=== PATIENT | female | born 1970 | race African-American/Black ===

== ENCOUNTER 2017-09-15 08:11 | Emergency (ER) | payer OTHER, SELFPAY ==
--- NOTE | 2017-09-15 09:11 | RAD ---
PORTABLE CHEST: HISTORY: Cough. COMPARISON: 03/01/17 study. FINDINGS: Heart size and mediastinum are within normal limits. The lungs are clear of infiltrates. Surgical c lips are noted in the left axilla. IMPRESSION: No active intrathoracic disease. POS: [facility]
== END 2017-09-15 09:55 | disposition home or self-care (01) ==
LOC: ERS 08:11
DX: R05 Cough (principal); E11.9 Type 2 diabetes mellitus without complications; I10 Essential (primary) hypertension; Z85.3 Personal history of malignant neoplasm of breast; I48.91 Unspecified atrial fibrillation; Z87.891 Personal history of nicotine dependence
CPT/HCPCS: 71010; 93005; 93010

== ENCOUNTER 2017-12-07 18:33 | Inpatient (IN) | payer OTHER ==
[2017-12-07 19:17] LABS: Hemoglobin 13.3 g/dL (12.0-16.0); Mean Corpuscular HGB CONC 33.3 g/dL (32.0-36.0); Mean Corpuscular Hemoglobin 24.9 pg (27.0-31.0); Mean Corpuscular Volume 74.6 fl (81.0-99.0); Mean Platelet Volume 8.8 fL (7.4-10.4); Platelet Count 278 thou/uL (130-400); RBC Distribution Width 14.4 % (11.5-14.5); Red Blood Cell (RBC) Count 5.36 mill/uL (4.20-5.40); White Blood Cell (WBC) Count 7.9 thou/uL (4.8-10.8)
[2017-12-07 19:18] LABS: #Basophils 0.1 thou/uL (0.0-0.2); #Eosinphils 0.1 thou/uL (0.0-0.7); #Lymphocytes 3.6 thou/uL (1.20-3.40); #Monocytes 0.5 thou/uL (0.11-0.59); #Neutrophils 3.6 thou/uL (1.40-6.50); %Basophils 0.6 % (0.0-1.0); %Eosinophils 0.9 % (0.0-10.0); %Lymphocytes 45.4 % (21.0-51.0); %Monocytes 6.9 % (0.0-10.0); %Neutrophils 46.2 % (42.0-75.0)
[2017-12-07 19:32] LABS: Hypochromia SLIGHT = 6-15 cells (100X) (0-5/hpf); MDiff Complete? YES; Microcytosis SLIGHT = 6-15 cells (100X) (0-5/hpf); Ovalocytes SLIGHT = 2-5 cells (100X) (0-1/hpf); PLT Morphology Comment Appears Adequate; Target Cells SLIGHT = 2-5 cells (100X) (0-1/hpf)
--- NOTE | 2017-12-07 19:46 | RAD ---
FRONTAL RADIOGRAPH CHEST 12/07/17 COMPARISON: 09/15/17 HISTORY: Left arm numbness with chest pain and shortness of breath. FINDINGS: There are postoperative clips in the left axillary region. There is no pneumothorax, pleural fluid, f ocal consolidation, or alveolar edema. IMPRESSION: No acute findings. POS: [facility]
[2017-12-07 19:48] LABS: ALT (SGPT) 9 U/L (8-55); AST (SGOT) 11 U/L (5-34); Albumin 3.4 g/dL (3.5-5.0); Alkaline Phosphatase 69 U/L (40-150); Anion Gap 14 mmol/L (10-20); BUN (Urea Nitrogen) 34 mg/dL (7.0-18.7); Bilirubin, Total 0.2 mg/dL (0.2-1.2); CK (CPK) 93 U/L (29-168); Calc. Creatinine Clearance 0 mL/min (70-130); Calcium 9.6 mg/dL (7.8-10.44); Carbon Dioxide 24 mmol/L (22-29); Chloride 99 mmol/L (98-107); Estimated GFR-MDRD 38; Globulin 3.7 g/dL (2.4-3.5); Glucose 519 mg/dL (70-105); Lipase 107 U/L (8-78); Potassium 3.5 mmol/L (3.5-5.1); Protein, Total 7.1 g/dL (6.0-8.3); Sodium 133 mmol/L (136-145)
[2017-12-07] MEDS ORDERED: Insulin Regular 300 UNITS/3 ML VIAL ONE (21:20)
[2017-12-07] MEDS ORDERED: Sodium Chloride 0.9% 1,000 ML IV SCH (22:09)
[2017-12-07 22:40] VITALS: BMI 34.3
[2017-12-07 22:49] LABS: Troponin I 0.042 ng/mL (< 0.028)
[2017-12-08] MEDS ORDERED: Carvedilol 6.25 MG TAB PO SCH ×2 (01:00→09:00)
[2017-12-08] MEDS ORDERED: Dextrose 50% Abboject 50 ML SYRINGE SLOW IVP PRN (01:02)
[2017-12-08] MEDS ORDERED: Ondansetron HCl/PF 4 MG/2 ML Vial IVP PRN (01:02)
[2017-12-08] MEDS ORDERED: Dextrose 5% in Water 1,000 ML IV PRN (01:02)
[2017-12-08] MEDS ORDERED: Mag-Al 1200 mg/1200 mg/30 ML UDCUP PO PRN (01:02)
[2017-12-08] MEDS ORDERED: hydrALAZINE 20 MG/ML VIAL SLOW IVP PRN (01:02)
[2017-12-08] MEDS ORDERED: Acetaminophen 325 MG TAB PO PRN (01:02)
[2017-12-08] MEDS ORDERED: HumaLOG 300 UNITS/3 ML VIAL SC PRN (01:02)
[2017-12-08] MEDS ORDERED: Ondansetron ODT 4 MG TAB PO PRN (01:02)
[2017-12-08] MEDS ORDERED: Milk Of Magnesia 30 ML UDCUP PO PRN (01:02)
[2017-12-08] MEDS ORDERED: Enoxaparin Sodium 100 MG/ML SYRINGE SC SCH (01:15)
[2017-12-08] MEDS: ALPRAZolam 0.25 MG TAB PO PRN ×2 (01:25→17:15)
[2017-12-08 01:37] LABS: Troponin I 0.037 ng/mL (< 0.028)
--- NOTE | 2017-12-08 01:59 | HP ---
PRIMARY CARE PHYSICIAN: Dr. Chen. CHIEF COMPLAINT: Feeling tired and aching and heart racing. HISTORY OF PRESENT ILLNESS: Ms. Newby is a very pleasant 47-year-old female who has a history of hypertension, diabetes mellitus, and atrial fibrillation, which was diagnosed about 2 years ago. She also has a history of breast cancer. She was in her usual state of health until about 2 days ago, s he started noticing that her heart was racing. She thought it was due to stress and anxiety as she s ays she has a lot of stress going on at home and at work and so she went to work as she works actuall y two and half job. 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 Yesterday, she felt the same way and felt a little bit of aching in her chest and then she went home and did not quite feel right. She felt dizzy and a bit lightheaded and said she better go on to the hospital to see what was wrong. In the ER, she was found to be in atrial fibrillation wit h rapid ventricular response and her heart rate actually improved, but she continues to be in atrial fibrillation and she is being placed in observation for further evaluation and her heart rate improve d after she was given 10 mg of Cardizem, but she did not require a Cardizem drip. The patient says t hat she had been diagnosed with atrial fibrillation about 2 years ago. She was seen at [facility]. There she was placed on sotalol and she believes Xarelto and her heart rate state good after being placed on these medications. She was on the medicines for about 3 months, but then was not able to get then refilled as she did not have insurance and could not afford to see the card iologist in which she says she had to get $300 of her own. She has not been on the medications since then and had been doing okay until just recently. She also ran out of insulin a couple of days ago, which she uses for the treatment of diabetes. She says she was diabetic at the time of her diagnosi s of atrial fibrillation. She also believes she had an echo done at the [facility] at that time. REVIEW OF SYSTEMS: Constitutional: There has been no fever, chills, no night sweats, no weight loss . HEENT: No headaches, but she has had some dizziness, no visual changes, no sore throat, rhinorrhe a, neck pain, no adenopathy. Pulmonary: No hemoptysis, no cough, no wheezing. Cardiovascular: As the history of present illness. Gastrointestinal: No abdominal pain, no nausea, no vomiting, no ellen nge in bowels. Genitourinary: No urinary frequency, hematuria, no hesitancy. Neurologic: No focal weakness, numbness, no seizures. Psychiatric: No symptoms of anxiety or depression. PAST MEDICAL HISTORY: Significant for hypertension, diabetes mellitus type 2, atrial fibrillation, a nd breast cancer. PAST SURGICAL HISTORY: She has had a hysterectomy and lumpectomy. ALLERGIES: No known drug allergies. SOCIAL HISTORY: She occasionally smokes, occasional alcohol use. She is single, has 2 children. 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 FAMILY HISTORY: Significant for diabetes mellitus in her mother and heart disease in her father. MEDICATIONS: She is taking amlodipine 10 mg daily, lisinopril 20 mg a day, carvedilol 12.5 mg twice a day, hydralazine 50 mg 3 times a day, triamterene/hydrochlorothiazide 37.5 mg daily, glipizide 10 m g daily, Levemir insulin 40 units twice a day, she had been on sotalol 40 mg twice a day and a blood thinner, which she believes was Xarelto. PHYSICAL EXAMINATION: GENERAL: She is alert and oriented. She appears to be in no acute distress. VITAL SIGNS: In the ER, the blood pressure was 135/76, heart rate 95, respiratory rate of 24, and te mperature is 98.2. HEENT: Her pupils are equal, round, and reactive. Extraocular muscles are intact. Sclerae are anic teric. Throat no erythema, no exudates. NECK: No adenopathy, no bruits. LUNGS: Clear to auscultation. There is no wheezing, no rales. CARDIOVASCULAR: She has a normal S1, S2. I did not appreciate an S3 or S4. No murmurs, clicks, or rubs. ABDOMEN: Obese, it is soft, nontender, nondistended. Positive for bowel sounds. No rebound, no gua rding. EXTREMITIES: There is no edema. NEUROLOGICALLY: The exam is nonfocal. SIGNIFICANT LABORATORY AND X-RAY FINDINGS: On her EKG, it was atrial fibrillation. Her heart rate w as in the 90s. Chest x-ray essentially looks unremarkable. Heart size is within the normal limits a nd there is no infiltrates. Her sodium was 133, potassium 3.5, chloride is 99, CO2 is 24, BUN of 34, creatinine 1.75, glucose was 519. Troponin is 0.030. White blood cell count 7.9, hemoglobin 13.3, hematocrit is 40, platelet count is 278. ASSESSMENT AND PLAN: This is a pleasant 47-year-old female that presents to the emergency room in at [facility] fibrillation with rapid ventricular response. I suspect her symptoms that she experienced was t he results of the atrial fibrillation. She also appears to have some degree of acute renal failure p ossibly acute on chronic kidney disease approximately 9 months ago her renal function was normal. PLAN: 1. The patient will be placed in observation. We will need to start her on anticoagulation. We ellen l give her a full dose of Lovenox tonight and then likely can start her on Xarelto on tomorrow, is ty pically dosed in the evening. She likely needs to be restarted on sotalol. However, we will consult Cardiology to see if this would be the ideal situation and we will also need to get their opinion wi th regards to the dosing of the sotalol or other medication recommended by Cardiology. 2. With regards to diabetes mellitus, we will start her on her usual dose of Levemir and place her o n a sliding scale as well. 3. Acute on chronic kidney disease. She has been given a bolus of normal saline in the ER. We will give her another liter of fluids and recheck her creatinine later on this morning. The patient has been counseled on the dangers of noncompliance including severe stroke and other sequ elae and she voices understanding. She currently now has insurance and states that she will be able to follow up as well as get her medications.
[2017-12-08] MEDS ORDERED: Diltiazem HCl 125 MG, Admixture Fee 1 EACH in Sodium Chloride 0.9% 100 ML IVPB SCH (02:45)
--- NOTE | 2017-12-08 03:38 | PDOC.EVN ---
Event Note - Event Note Event Note: Patient had to be placed on a Cardizem drip, will therefore change her status to in-patient. Will also request her Echo results from the [facility]
[2017-12-08 04:54] LABS: #Basophils 0.1 thou/uL (0.0-0.2); #Eosinphils 0.1 thou/uL (0.0-0.7); #Lymphocytes 3.9 thou/uL (1.20-3.40); #Monocytes 0.6 thou/uL (0.11-0.59); #Neutrophils 3.6 thou/uL (1.40-6.50); %Basophils 1.2 % (0.0-1.0); %Lymphocytes 47.4 % (21.0-51.0); %Monocytes 6.8 % (0.0-10.0); %Neutrophils 43.7 % (42.0-75.0); Hemoglobin 12.7 g/dL (12.0-16.0); Mean Corpuscular HGB CONC 32.9 g/dL (32.0-36.0); Mean Corpuscular Hemoglobin 24.9 pg (27.0-31.0); Mean Corpuscular Volume 75.7 fl (81.0-99.0); Mean Platelet Volume 8.9 fL (7.4-10.4); Platelet Count 255 thou/uL (130-400); RBC Distribution Width 14.6 % (11.5-14.5); Red Blood Cell (RBC) Count 5.09 mill/uL (4.20-5.40); White Blood Cell (WBC) Count 8.2 thou/uL (4.8-10.8)
[2017-12-08 05:12] LABS: Anion Gap 13 mmol/L (10-20); BUN (Urea Nitrogen) 33 mg/dL (7.0-18.7); Calc. Creatinine Clearance 83 mL/min (70-130); Carbon Dioxide 24 mmol/L (22-29); Chloride 103 mmol/L (98-107); Estimated GFR-MDRD 52; Glucose 330 mg/dL (70-105); Potassium 3.2 mmol/L (3.5-5.1); Sodium 137 mmol/L (136-145)
[2017-12-08 05:26] LABS: Free T4 (Free Thyroxine) 1.05 ng/dL (0.70-1.48); Thyroid Stimulating Hormone 1.8684 uIU/mL (0.35-4.94)
[2017-12-08] MEDS: HumaLOG 300 UNITS/3 ML VIAL SC PRN ×4 (05:54→17:23)
[2017-12-08] MEDS ORDERED: glipiZIDE 10 MG TAB PO SCH (07:30)
[2017-12-08] MEDS ORDERED: FLU VACC QS2017-18 36 mo. & older 0.5 ML SYRINGE IM ONE (09:00)
[2017-12-08] MEDS ORDERED: Lisinopril 20 MG TAB PO SCH (09:00)
[2017-12-08] MEDS ORDERED: Aspirin 81 mg Enteric Coated Tablet PO SCH (09:00)
[2017-12-08] MEDS ORDERED: Insulin Detemir 100 UNITS/ML 40 UNITS in Pre-Filled Syringe 1 EACH SC SCH (09:00)
[2017-12-08] MEDS ORDERED: Aspirin 325 mg Enteric Coated Tablet PO SCH (09:00)
[2017-12-08] MEDS ORDERED: Amlodipine 10 MG TAB PO SCH (09:00)
[2017-12-08] MEDS ORDERED: Famotidine 20 MG TAB PO SCH (09:00)
[2017-12-08] MEDS: hydrALAZINE 25 MG TAB PO SCH ×2 (09:14→14:42)
--- NOTE | 2017-12-08 15:53 | ADD-CON ---
ADDENDUM Please refer to the notes also dictated by Dr. Penn. He was also seeing the patient with me. We h ave discussed the patient. We reviewed the patient together. DATE OF CONSULTATION: 12/08/2017 DATE OF ADMISSION: 12/07/2017 INDICATION FOR CONSULTATION: A 47-year-old female with intermittent atrial fibrillation. HISTORY OF PRESENT ILLNESS: This is a 47-year-old female who had a history of atrial fibrillation, s tarting a couple of years ago, has been placed on Xarelto and sotalol, was unable to afford the medic ation. She stopped taking it, but the atrial fibrillation was intermittent. She has been under incr eased stress recently and had decreased fatigue and has been drinking more caffeine unusual and did n otice couple of days ago that she felt strange and noticed some palpitations and shortness of breath and presented to the emergency and was found to be in atrial fibrillation with rapid ventricular resp onse. She was given IV diltiazem and then converted back to normal sinus rhythm. At home, she has a lready been on Coreg, but was not taking any anticoagulation except for an aspirin a day. In 2012, s he had an echocardiogram which showed left atrial size of 4.0 cm and ejection fraction 65% with left ventricular hypertrophy, otherwise she has been doing quite well as far as her heart is concerned. PAST MEDICAL HISTORY: She has had a past medical history of left breast nodule removed and also had a lymph node dissection as well as radiation and chemotherapy. She has history of hypertension, diab etes, cholecystectomy, and hysterectomy. SOCIAL HISTORY: She has some history of tobacco abuse in the past and she also has history of alcoho l use on a daily basis. FAMILY HISTORY: Noncontributory at this time, but her father did have some heart disease. REVIEW OF SYSTEMS: Twelve point review of systems unremarkable except what was noted above and pleas e refer to the note dictated by Dr. Penn. ALLERGIES: None. MEDICATIONS: Prior to admission include Norvasc, lisinopril, Coreg, and hydralazine. At this time, we will continue these medications and also start diltiazem. She has also been placed on insulin, I believe. PHYSICAL EXAMINATION: I would agree with Dr. Penn that she has a regular rate and rhythm at this t maicol. Exam is otherwise unremarkable, had some left arm edema. She has positive pulses and no lower extremity edema. Neurologically, she is fully intact and there were no gross murmurs, heaves, thrill s, bruits or rubs. EKG at this time shows a sinus rhythm, previous EKG shows atrial fibrillation, bu t no acute changes that would indicate ischemia. IMPRESSION: 1. Atrial fibrillation with rapid ventricular response, which easily converted back to normal sinus rhythm with the use of diltiazem. At this time, I would continue her on a low dose of diltiazem oral ly as well as the Coreg since she is having difficulty involving her medications. This may have impr jaime somewhat now. She is on Medicaid, but since she has only had intermittent episodes of atrial fi brillation. We will try the diltiazem, should she have more episodes and she will need to be placed on a more potent antiarrhythmic medications. We could resume sotalol or some other medications in or esthela to maintain sinus rhythm. We will also obtain an echocardiogram on this admission prior to disch arge to determine the left atrial size and also her left ventricular systolic function. At some poin t in time, it would be advantageous to undergo some type of stress testing, which can be done as an o utpatient due to her history of diabetes, hypertension, and atrial fibrillation. 2. History of diabetes. This is dealt with by the primary care service. 3. History of hypertension. This is under good control at this time. This will be dealt with also by the primary care service. I will need to be careful with her blood pressures if we restart the di ltiazem, I will start her on 180 mg p.o. daily. Thank you very much for asking us to see Mrs. Venegas ll. We will also need to consider starting her on oral anticoagulation if she has further episodes o f atrial fibrillation. Her CHADSVASc score is approximately 3.
[2017-12-08 15:54] VITALS: BP 178/84; TEMP 97.9
--- NOTE | 2017-12-08 16:23 | CON-2 ---
DATE OF CONSULTATION: 12/08/2017 CARDIOLOGY CONSULTATION REASON FOR CONSULTATION: Atrial fibrillation with rapid ventricular response. RESIDENT PHYSICIAN: Lee Penn M.D. ATTENDING PHYSICIAN: Maia Bell M.D. REFERRING PHYSICIAN: Bernardo Escobedo M.D. CHIEF COMPLAINT: Shortness of breath. HISTORY OF PRESENT ILLNESS: Ms. Newby is a 47-year-old -[place] female with past medical history of hypertension, diabetes, paroxysmal atrial fibrillation and breast cancer status post lumpectomy. She presented with a 3- day history of shortness of breath and an "unusual feeling around her chest." She denied chest pain, pressure, or palpitations. She has been off of her sotalol and Xarelto for 2 to 3 months because her primary care physician would not refill and she was unable to afford over the counter. She has also had insurance issues during this time. She states she has been taking the remainder of her medications, which are listed below. In the ER, she was found to be in AFib with RVR, which improved with diltiazem 10 mg IV. She was also found to be hyperglycemic with glucose of 519, which has come down with insulin since. Per the history and physical, the patient states she has been out of her insulin for a couple of days. Last echo was performed, which was done at the [facility] in 2012, which showed left atrial dilation and was otherwise unremarkable. The patient also reports being under a lot of stress. She states she works 2 full-time jobs and a part-time job. 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 She reports drinking at least three 32 ounce Diet Cokes every day to help stay awake and reports increased psychosocial stress. PAST MEDICAL HISTORY: 1. Hypertension. 2. Insulin-dependent diabetes mellitus type 2. 3. Paroxysmal atrial fibrillation. 4. Breast cancer. PAST SURGICAL HISTORY: 1. Hysterectomy. 2. Left lumpectomy. ALLERGIES: No known drug allergies. SOCIAL HISTORY: Denies tobacco or illicit drug use. She uses alcohol occasionally, but has never had excessive alcohol use or binge drank. FAMILY HISTORY: Positive for hypertension and diabetes in her mother. She denied history of myocardial infarction in her family. CURRENT MEDICATIONS: 1. Amlodipine 10 mg daily. 2. Lisinopril 20 mg daily. 3. Coreg 12.5 mg b.i.d. 4. Hydralazine 50 mg t.i.d. 5. Triamterene/hydrochlorothiazide 37.5/25 mg daily. 6. Levemir 40 units subcutaneously b.i.d. 7. Glipizide 10 mg daily. 8. Aspirin 81 mg daily. The patient is supposed to be on sotalol 40 mg b.i.d. and Xarelto, but has been off these medications for at least 2 months. REVIEW OF SYSTEMS: General: Denies fevers or chills. ENT: Reported some dizziness and the onset of her other symptoms, but denies sore throat, runny nose. Cardiovascular: Denies chest pain. Reports heart fluttering for the past 2-3 days. Pulmonary: Reports shortness of breath. Denies dyspnea on exertion. Gastrointestinal: Denies GI bleeding or abdominal pain. Extremities : Reports chronic left arm swelling, but denies lower extremity edema. Genitourinary: Denies dysuria, polyuria, or discharge. PHYSICAL EXAMINATION: VITAL SIGNS: Temperature 98.1, pulse 74 and normal sinus rhythm, respiratory rate 16, pulse ox 90% on room air, blood pressure 138/67. GENERAL: No acute distress, obese. CARDIOVASCULAR: Normal rate, regular rhythm without murmurs, rubs or gallops. PULMONARY: Clear to auscultation bilaterally. Normal effort. EXTREMITIES: Mild to moderate nonpitting edema in left upper extremity. No edema in the lower extremity as well as right upper extremity. SKIN: Intact. No lesions. LABORATORY DATA: 1. CMP: Sodium 137, potassium 3.2, chloride 103, bicarbonate 24, BUN 33, creatinine 1.33, estimated GFR 52, glucose 330, and calcium 9.0. 2. CBC: White count 8.2, hemoglobin 12.3, hematocrit 38.5, platelets 255, MCV 75.7. 3. Cardiac markers: CK-MB on admission is 3.0 and BNP 752.9. Troponins at the time of admission 0.030, trended up to 0.042, and back down to 0.037. TSH is 1.8684. IMAGING: Chest x-ray, no acute findings. ASSESSMENT: Ms. Newby is a 47-year-old -[place] female with history of atrial fibrillation, who presented to the ER in atrial fibrillation with rapid ventricular response. She has been out of her medications for 2 to 3 months and reports excessive caffeine use. Denies alcohol or illicit drug use. PLAN: 1. Atrial fibrillation with rapid ventricular response. The patient is currently in normal sinus rhythm after diltiazem bolus in the ER and being placed on a diltiazem drip for approximately 8 hours. Since she reports difficulty affording her medication and she responded well to the diltiazem, we will start oral diltiazem 180 mg daily. The patient needs repeat transthoracic echocardiogram as it has been almost 5 years since she last received one. If the patient receives echo today and remains in normal sinus rhythm or is rate controlled, she would be stable and ready for discharge today. Her TIKI-VASc2 score is 3 since her atrial fibrillation appears to be well controlled and she appears to be in sinus rhythm and knows when her episodes of atrial fibrillation occur, we would recommend aspirin at this time. If she continues to have recurrent episodes of atrial fibrillation, we discuss starting the patient on long-term anticoagulation at that time. Since the patient is able to tell when she goes into atrial fibrillation, I would recommend her checking her pulse and educating on own findings of irregular pulse when in atrial fibrillation and advised to follow up if and when that happens again. 2. Hypertension. I resume home medications and start diltiazem. We will need outpatient followup to monitor for blood pressure and adjust medications accordingly. May need to remove or decrease other medications if her blood pressure does not tolerate the diltiazem. 3. Insulin-dependent diabetes mellitus type 2. No A1c is available. We will defer to primary team for management. We would recommend high intensity statin therapy since she is diabetic and high risk for cardiovascular disease. 4. History of breast cancer, status post lumpectomy. The patient reported chronic swelling in her left upper extremity since surgery. Continue with outpatient followup. History, physical exam, and assessment and plan were discussed with Dr. Bell, who is in agreement with this assessment and plan unless otherwise stated in her attestation. CYRIL
--- NOTE | 2017-12-08 22:28 | DIS ---
DATE OF ADMISSION: 12/07/2017 DATE OF DISCHARGE: 12/08/2017 DISCHARGE DIAGNOSES: 1. Atrial fibrillation with rapid ventricular response, converting to sinus rhythm. 2. Acute kidney injury on chronic kidney disease stage 2. 3. Hypertension, labile. 4. Diabetes mellitus type 2, insulin requiring. 5. Hypokalemia, mild. 6. Elevated troponin secondary to demand ischemia and #1. CONSULTATIONS: Dr. Bell with Cardiology Service. PERTINENT LABORATORY AND X-RAY FINDINGS: Potassium ranged between 3.2-3.5, creatinine ranged between 1.33-1.67 with estimated GFR ranging between 38-52. Troponin I ranged between 0.030 to 0.042. BNP 753, TSH 1.87. Free T4 1.05. CBC within normal limits. Portable chest x-ray dated 12/07/2017 showe d no acute cardiopulmonary process. HOSPITAL COURSE: Patient was admitted to the telemetry unit after initially presenting with fatigue and palpitations. The patient underwent general evaluation with EKG evaluation showing evidence of a trial fibrillation with rapid ventricular response, initially treated with a bolus dose of Cardizem a t 10 mg. The patient apparently did not require a Cardizem infusion and converted back to sinus mech anism. Patient was evaluated by the Cardiology service with recommendations for rate control and the addition of diltiazem 180 mg daily. The patient was also instructed to continue carvedilol 12.5 mg b.i.d. No current recommendations for anticoagulation; however, if patient does continue to have rec urrent episodes of atrial fibrillation, anticoagulation may be considered at that time. Overall, the patient remained clinically stable throughout the hospital course with current telemetry monitoring showing sinus mechanism with heart rates in the 70s. The patient is ready for discharge on 8. DISCHARGE MEDICATIONS: 1. Xanax 0.25 mg p.o. b.i.d. 2. Amlodipine 10 mg 1 tab p.o. daily. 3. Enteric coated aspirin 81 mg 1 tab p.o. daily. 4. Carvedilol 12.5 mg p.o. b.i.d. 5. Diltiazem CD 180 mg p.o. daily. 6. Glipizide 10 mg one tab p.o. daily. 7. Hydralazine 50 mg p.o. t.i.d. 8. Levemir 40 units subcutaneously b.i.d. 9. Lisinopril 20 mg 1 tab p.o. daily. FOLLOWUP: The patient may follow up with Dr. Joana Chen within 7 days of discharge. The patien t may also follow up with Dr. Lobo Bell within 2 weeks. CONDITION ON DISCHARGE: Stable. ACTIVITY: Ad daly. DIET: Heart-healthy and ADA. CODE STATUS: FULL. DISPOSITION: Home on 12/08/2017.
== END 2017-12-08 18:52 | disposition home or self-care (01) | DRG 309 ==
LOC: ERS 18:33 → OBSVTOIN 22:06 → 2SW 22:06 → 2NO 12-08 07:45
PROVIDERS: ADMIT Internal Medicine; ATTEND Internal Medicine
DX: I48.0 Paroxysmal atrial fibrillation (principal); N17.9 Acute kidney failure, unspecified; E11.22 Type 2 diabetes mellitus with diabetic chronic kidney disease; E11.65 Type 2 diabetes mellitus with hyperglycemia; I24.8 Other forms of acute ischemic heart disease; I13.10 Hypertensive heart and chronic kidney disease without heart failure, with stage 1 through stage 4 chronic kidney disease, or unspecified chronic kidney disease; Z79.01 Long term (current) use of anticoagulants; Z85.3 Personal history of malignant neoplasm of breast; Z91.14 Patient's other noncompliance with medication regimen; Z79.4 Long term (current) use of insulin; F17.210 Nicotine dependence, cigarettes, uncomplicated; Z79.84 Long term (current) use of oral hypoglycemic drugs; N18.2 Chronic kidney disease, stage 2 (mild); E87.6 Hypokalemia; Z79.82 Long term (current) use of aspirin
CPT/HCPCS: 36415; 36416; 71045; 80048; 80053; 82550; 82553; 83690; 83880; 84439; 84443; 84484; 85025; 90471; 90682; 93005; 93306; 96374; 96375; 96376; A4216; G0008; J1650; J1815; J7050; Q2036

== ENCOUNTER 2018-03-26 17:39 | Emergency (ER) | payer OTHER | END 2018-03-26 19:35 | disposition left against medical advice (07) | LOC: ERS 17:39 | DX: Z53.21 Procedure and treatment not carried out due to patient leaving prior to being seen by health care provider (principal) ==

== ENCOUNTER 2018-05-11 12:27 | Emergency (ER) | payer OTHER | END 2018-05-11 13:21 | disposition left against medical advice (07) | LOC: ERS 12:27 | DX: Z53.21 Procedure and treatment not carried out due to patient leaving prior to being seen by health care provider (principal) ==

== ENCOUNTER 2018-08-24 11:16 | Emergency (ER) | payer OTHER ==
[2018-08-24] MEDS ORDERED: Ondansetron ODT 4 MG TAB ONE (11:56)
[2018-08-24 12:20] LABS: #Lymphocytes 1.8 thou/uL (1.20-3.40); #Monocytes 0.6 thou/uL (0.11-0.59); #Neutrophils 6.7 thou/uL (1.40-6.50); %Basophils 0.3 % (0.0-1.0); %Eosinophils 0.3 % (0.0-10.0); %Lymphocytes 19.8 % (21.0-51.0); %Monocytes 6.2 % (0.0-10.0); %Neutrophils 73.5 % (42.0-75.0); Hemoglobin 13.3 g/dL (12.0-16.0); Mean Corpuscular HGB CONC 31.4 g/dL (32.0-36.0); Mean Corpuscular Hemoglobin 23.5 pg (27.0-31.0); Mean Corpuscular Volume 74.6 fL (78.0-98.0); Platelet Count 344 thou/uL (130-400); RBC Distribution Width 14.8 % (11.5-14.5); Red Blood Cell (RBC) Count 5.69 mill/uL (4.20-5.40); White Blood Cell (WBC) Count 9.1 thou/uL (4.8-10.8)
[2018-08-24 12:21] LABS: Bilirubin Small (Negative); Blood, Urine Small (Negative); Glucose, Urine (Dipstick) 500 mg/dL (Negative); Leukocyte Negative (Negative); Nitrite Negative (Negative); Protein, Urine (Dipstick) 100 mg/dL (Neg-Trace); Urobilinogen 0.2 mg/dL (0.2-1.0)
[2018-08-24 12:30] LABS: Clarity CLEAR (Clear)
[2018-08-24 12:31] LABS: Other Microscopic Description Less than 2 mL rec'd
[2018-08-24 12:37] LABS: Hypochromia SLIGHT = 6-15 cells (100X) (0-5/hpf); MDiff Complete? YES; Microcytosis SLIGHT = 6-15 cells (100X) (0-5/hpf); Ovalocytes SLIGHT = 2-5 cells (100X) (0-1/hpf); PLT Morphology Comment Appears Adequate
[2018-08-24 12:41] LABS: ALT (SGPT) 15 U/L (8-55); AST (SGOT) 13 U/L (5-34); Albumin 4.1 g/dL (3.5-5.0); Alkaline Phosphatase 79 U/L (40-150); Anion Gap 16 mmol/L (10-20); BUN (Urea Nitrogen) 30 mg/dL (7.0-18.7); Bilirubin, Total 0.4 mg/dL (0.2-1.2); Calc. Creatinine Clearance 0 mL/min (70-130); Calcium 10.1 mg/dL (7.8-10.44); Carbon Dioxide 26 mmol/L (22-29); Chloride 99 mmol/L (98-107); Estimated GFR-MDRD 33; Globulin 4.4 g/dL (2.4-3.5); Glucose 350 mg/dL (70-105); Potassium 3.6 mmol/L (3.5-5.1); Protein, Total 8.5 g/dL (6.0-8.3); Sodium 137 mmol/L (136-145)
[2018-08-24] MEDS ORDERED: Ketorolac Tromethamine 30 MG/ML VIAL ONE (13:03)
[2018-08-24 13:23] LABS: Lipase 80 U/L (8-78)
--- NOTE | 2018-08-24 14:17 | CT ---
CT ABDOMEN AND PELVIS WITH CONTRAST: Date: 08/24/18 HISTORY: Abdominal pain. COMPARISON: None. FINDINGS: Lung bases are clear. No pericardial effusion. The aortoiliac contour is nonaneurysmal. No hydronephrosis. No retroperitoneal adenopathy. Liver and gallbladder are unremarkable. No dilated loops of large or small bowel. Single mildly prominent left retroperitoneal periaortic lymph node measures 4.0 mm in short axis. Thi s is not pathologically enlarged. No acute osseous abnormality. IMPRESSION: No acute inflammatory process within the abdomen or pelvis. POS: [facility]
[2018-08-24] MEDS ORDERED: Ondansetron PF 4 MG/2 ML Vial ONE (14:54)
[2018-08-24] MEDS ORDERED: ISOVUE-370 76%-LOCM 1 ML ONE (16:41)
== END 2018-08-24 14:59 | disposition home or self-care (01) ==
LOC: ERS 11:16
DX: K59.00 Constipation, unspecified (principal); E86.0 Dehydration; E11.65 Type 2 diabetes mellitus with hyperglycemia; I12.9 Hypertensive chronic kidney disease with stage 1 through stage 4 chronic kidney disease, or unspecified chronic kidney disease; N18.9 Chronic kidney disease, unspecified; I48.91 Unspecified atrial fibrillation; E11.22 Type 2 diabetes mellitus with diabetic chronic kidney disease; Z79.4 Long term (current) use of insulin; E78.5 Hyperlipidemia, unspecified; F41.9 Anxiety disorder, unspecified; Z79.899 Other long term (current) drug therapy
CPT/HCPCS: 36415; 74177; 80053; 81003; 81015; 83690; 85025; 96361; 96374; 96375; J1885; J2405; Q0162

== ENCOUNTER 2018-11-26 09:38 | Emergency (ER) | payer OTHER ==
[2018-11-26 11:31] LABS: #Eosinphils 0.1 thou/uL (0.0-0.7); #Lymphocytes 1.5 thou/uL (1.20-3.40); #Monocytes 0.4 thou/uL (0.11-0.59); #Neutrophils 7.4 thou/uL (1.40-6.50); %Basophils 0.1 % (0.0-1.0); %Eosinophils 0.6 % (0.0-10.0); %Monocytes 3.9 % (0.0-10.0); %Neutrophils 79.4 % (42.0-75.0); Hemoglobin 12.5 g/dL (12.0-16.0); Mean Corpuscular HGB CONC 32.5 g/dL (32.0-36.0); Mean Corpuscular Hemoglobin 23.4 pg (27.0-31.0); Mean Corpuscular Volume 72.2 fL (78.0-98.0); Mean Platelet Volume 8.9 fL (7.4-10.4); Platelet Count 316 thou/uL (130-400); RBC Distribution Width 15.9 % (11.5-14.5); Red Blood Cell (RBC) Count 5.34 mill/uL (4.20-5.40); White Blood Cell (WBC) Count 9.3 thou/uL (4.8-10.8)
[2018-11-26] MEDS ORDERED: Ondansetron PF 4 MG/2 ML Vial ONE ×2 (11:46→13:17)
[2018-11-26 11:53] LABS: Bilirubin Negative (Negative); Blood, Urine Small (Negative); Clarity CLEAR (Clear); Glucose, Urine (Dipstick) 250 mg/dL (Negative); Leukocyte Negative (Negative); Nitrite Negative (Negative); Protein, Urine (Dipstick) 300 mg/dL (Neg-Trace); Specific Gravity, Urine 1.016 (1.002-1.036); Urobilinogen 0.2 mg/dL (0.2-1.0)
[2018-11-26 11:55] LABS: Bacteria/HPF None Seen HPF (None Seen)
[2018-11-26 12:02] LABS: MDiff Complete? YES; Microcytosis SLIGHT = 6-15 cells (100X) (0-5/hpf); Platelet Morphology Comment Appears Adequate
[2018-11-26 12:07] LABS: Chloride 98 mmol/L (98-107); Potassium 3.6 mmol/L (3.5-5.1); Sodium 135 mmol/L (136-145)
[2018-11-26 12:11] LABS: Hyaline Casts/LPF 0-3 HYALINE CAST LPF (0-3 Hyaline)
[2018-11-26 12:12] LABS: Renal Epithelial 0-3 HPF (0-3); Transitional Epithelial 0-3 HPF (0-3)
[2018-11-26 12:20] LABS: ALT (SGPT) 13 U/L (8-55); AST (SGOT) 12 U/L (5-34); Albumin 4.1 g/dL (3.5-5.0); Alkaline Phosphatase 89 U/L (40-150); BUN (Urea Nitrogen) 26 mg/dL (7.0-18.7); Bilirubin, Total 0.3 mg/dL (0.2-1.2); Calc. Creatinine Clearance 0 mL/min (70-130); Calcium 10.7 mg/dL (7.8-10.44); Carbon Dioxide 23 mmol/L (22-29); Estimated GFR-MDRD 37; Globulin 4.5 g/dL (2.4-3.5); Glucose 266 mg/dL (70-105); Lipase 77 U/L (8-78); Protein, Total 8.6 g/dL (6.0-8.3)
--- NOTE | 2018-11-26 12:24 | RAD ---
CHEST ONE VIEW: History: Nausea, vomiting. Comparison: 12-07-17 FINDINGS: Lungs are clear. No pneumothorax or effusion. Cardiac silhouette and mediastinal contours are within normal limits. IMPRESSION: No acute thoracic abnormality. POS: [facility]
[2018-11-26 12:50] LABS: Anion Gap 18 mmol/L (10-20)
--- NOTE | 2018-11-26 14:08 | CT ---
CT ABDOMEN AND PELVIS WITHOUT CONTRAST: Date: 11-26-18 Provided Clinical History: Abdominal pain. Comparison: 08-24-18 FINDINGS: The visualized lung bases are free of significant opacity. The solid abdominal organs are suboptimally evaluated in the absence of IV contrast material but demo nstrate an unremarkable, unenhanced CT appearance. There is no evidence for urinary tract calculi or hydronephrosis. There is no bowel dilatation, intraperitoneal fat stranding, free fluid or free air apparent. Changes of prior cholecystectomy are seen. The appendix appears normal. There is stable reticulation of the subcutaneous adipose layering in the right lower quadrant, the et iology and significance of which are uncertain. The osseous structures demonstrate no concerning lytic or blastic lesions. IMPRESSION: 1. No evidence for urinary tract calculi or hydronephrosis. 2. Stable nonspecific reticulation of the subcutaneous adipose layer in the right lower quadrant. POS: [facility]
== END 2018-11-26 13:50 | disposition home or self-care (01) ==
LOC: ERS 09:38
DX: R10.11 Right upper quadrant pain (principal); R31.9 Hematuria, unspecified; I48.91 Unspecified atrial fibrillation; E11.9 Type 2 diabetes mellitus without complications; E78.5 Hyperlipidemia, unspecified; I10 Essential (primary) hypertension; F41.9 Anxiety disorder, unspecified; Z79.4 Long term (current) use of insulin; Z79.891 Long term (current) use of opiate analgesic
CPT/HCPCS: 36415; 36416; 71045; 74176; 80053; 81003; 81015; 82010; 83690; 84484; 85025; 93005; 96361; 96374; 96376; J2405

== ENCOUNTER 2019-03-01 20:50 | Observation (INO) | payer OTHER, SELFPAY ==
[2019-03-01 21:27] LABS: #Basophils 0.1 thou/uL (0.0-0.2); #Eosinphils 0.1 thou/uL (0.0-0.7); #Lymphocytes 3.1 thou/uL (1.20-3.40); #Monocytes 0.6 thou/uL (0.11-0.59); #Neutrophils 4.4 thou/uL (1.40-6.50); %Basophils 0.9 % (0.0-1.0); %Eosinophils 1.8 % (0.0-10.0); %Lymphocytes 37.2 % (21.0-51.0); %Monocytes 6.6 % (0.0-10.0); %Neutrophils 53.5 % (42.0-75.0); Hemoglobin 10.9 g/dL (12.0-16.0); Mean Corpuscular HGB CONC 32.6 g/dL (32.0-36.0); Mean Corpuscular Hemoglobin 23.8 pg (27.0-31.0); Mean Platelet Volume 9.6 fL (7.4-10.4); Platelet Count 258 thou/uL (130-400); RBC Distribution Width 16.1 % (11.5-14.5); Red Blood Cell (RBC) Count 4.58 mill/uL (4.20-5.40); White Blood Cell (WBC) Count 8.3 thou/uL (4.8-10.8)
[2019-03-01] MEDS ORDERED: Morphine 4 MG/ML VIAL ONE ×2 (21:39→23:55)
[2019-03-01] MEDS ORDERED: Ondansetron PF 4 MG/2 ML Vial ONE ×2 (21:44→23:55)
[2019-03-01 21:46] LABS: ALT (SGPT) 11 U/L (8-55); AST (SGOT) 11 U/L (5-34); Albumin 3.6 g/dL (3.5-5.0); Alkaline Phosphatase 70 U/L (40-150); Anion Gap 14 mmol/L (10-20); BUN (Urea Nitrogen) 38 mg/dL (7.0-18.7); Bilirubin, Total 0.2 mg/dL (0.2-1.2); Calc. Creatinine Clearance 0 mL/min (70-130); Calcium 9.5 mg/dL (7.8-10.44); Carbon Dioxide 25 mmol/L (22-29); Chloride 100 mmol/L (98-107); Estimated GFR-MDRD 27; Glucose 425 mg/dL (70-105); Potassium 3.9 mmol/L (3.5-5.1); Protein, Total 7.6 g/dL (6.0-8.3); Sodium 135 mmol/L (136-145)
--- NOTE | 2019-03-01 21:46 | RAD ---
EXAM: CHEST ONE VIEW HISTORY: Right upper quadrant abdominal pain. COMPARISON: 11/26/2018 FINDINGS: The cardiac silhouette and pulmonary vasculature is within normal limits. The lungs are clear. The os seous structures are intact. Surgical clips again overlie the left axillary region. Chest is stable compared to prior study. IMPRESSION: No acute cardiopulmonary process.
--- NOTE | 2019-03-01 22:13 | CT ---
CT Abdomen Pelvis WO Con 03/01/2019 12:00 AM HISTORY: Right upper quadrant abdominal pain for 3 days. COMPARISON: 11/26/2018 Technique: Multiple contiguous axial images were obtained and a CT of the abdomen and pelvis without IV contrast . Coronal reformats were performed. FINDINGS: This examination is limited for the evaluation of solid organs and vascular structures due to the lac k of intravenous contrast. Lower Chest: Minimal linear atelectasis is seen at the right lung base. Lung bases are otherwise agustin r. Abdomen: Liver: within normal limits. Gallbladder: Postcholecystectomy changes are again seen. Pancreas: within normal limits. Spleen: within normal limits. Adrenals: within normal limits. Kidneys: There is question of a subtle subcentimeter hypodense lesion midportion right kidney too sma ll to characterize. No renal calculi are seen bilaterally, there is no hydronephrosis. Ureters: No ureteral calculus is seen.. Pelvis: Urinary bladder: within normal limits. Reproductive Organs: The uterus is not visualized likely related to prior hysterectomy. A 3.1 cm hypo dense cystic appearing structure is seen in the left adnexal region which is not present on the prior exam and statistically likely represents a ovarian cyst. Lymph Nodes: No enlarged lymph nodes. Bowel: Small amount of retained fecal material seen throughout the colon.The appendix is normal in ca liber. Peritoneum: No free fluid, free air, or fluid collection. Retroperitoneum: within normal limits. Vessels: Minimal atherosclerotic vascular calcifications are seen.. Abdominal Wall: Minimal but stable nonspecific reticulation of the subcutaneous adipose layer in the right lower quadrant is again seen. This is also stable compared to CT abdomen and pelvis on 08/24/2018. Bones: within normal limits. IMPRESSION: 1. No renal or ureteral calculi are seen bilaterally. 2. Hypodense cystic structure left adnexal region likely related to an ovarian cyst. This was not see n on prior exam. 3. Postsurgical changes related to cholecystectomy and hysterectomy. 4. Stable nonspecific reticulation of the subcutaneous adipose layer in the right lower quadrant.
[2019-03-01 22:31] LABS: Bilirubin Negative (Negative); Blood, Urine Negative (Negative); Clarity CLEAR (Clear); Glucose, Urine (Dipstick) >=1000 mg/dL (Negative); Leukocyte Negative (Negative); Nitrite Negative (Negative); Protein, Urine (Dipstick) 100 mg/dL (Neg-Trace); Specific Gravity, Urine 1.017 (1.002-1.036); Urobilinogen 0.2 mg/dL (0.2-1.0)
[2019-03-01 22:33] LABS: Bacteria/HPF None Seen HPF (None Seen); Hyaline Casts/LPF 0-3 HYALINE CAST LPF (0-3 Hyaline); Squamous Epithelial 0-3 HPF (0-3); WBC/HPF 0-3 HPF (0-3)
[2019-03-01 22:38] LABS: Pregnancy Test - Urine (BHCG) Negative (Negative); Pregu Control Background? CLEAR/WHITE (CLR/WHITE); Pregu Control Bar Appear? YES (CONTROL BAR); Specific Gravity 1.017 (1.002-1.036)
[2019-03-02 03:29] VITALS: BMI 36.6
[2019-03-02] MEDS ORDERED: Morphine 4 MG/ML VIAL SLOW IVP PRN (04:18)
[2019-03-02] MEDS ORDERED: Carvedilol 6.25 MG TAB PO SCH ×2 (04:30→09:00)
[2019-03-02] MEDS ORDERED: Amlodipine 10 MG TAB PO SCH ×2 (04:30→09:00)
[2019-03-02] MEDS ORDERED: Dextrose 50% Abboject 50 ML SYRINGE SLOW IVP PRN (06:07)
[2019-03-02] MEDS ORDERED: Dextrose 5% in Water 1,000 ML IV PRN (06:07)
[2019-03-02 08:54] LABS: #Eosinphils 0.2 thou/uL (0.0-0.7); #Lymphocytes 2.8 thou/uL (1.20-3.40); #Monocytes 0.6 thou/uL (0.11-0.59); #Neutrophils 4.2 thou/uL (1.40-6.50); %Basophils 0.6 % (0.0-1.0); %Eosinophils 2.2 % (0.0-10.0); %Lymphocytes 36.3 % (21.0-51.0); %Monocytes 7.6 % (0.0-10.0); %Neutrophils 53.3 % (42.0-75.0); Hemoglobin 11.6 g/dL (12.0-16.0); Mean Corpuscular HGB CONC 32.7 g/dL (32.0-36.0); Mean Corpuscular Hemoglobin 23.3 pg (27.0-31.0); Mean Corpuscular Volume 71.1 fL (78.0-98.0); Mean Platelet Volume 9.7 fL (7.4-10.4); Platelet Count 232 thou/uL (130-400); RBC Distribution Width 15.9 % (11.5-14.5); Red Blood Cell (RBC) Count 4.97 mill/uL (4.20-5.40); White Blood Cell (WBC) Count 7.8 thou/uL (4.8-10.8)
[2019-03-02] MEDS ORDERED: Gabapentin 300 MG CAP PO SCH (09:00)
[2019-03-02] MEDS ORDERED: Aspirin 81 mg Enteric Coated Tablet PO SCH (09:00)
[2019-03-02] MEDS ORDERED: Triamterene/Hydrochlorothiazide 37.5 mg/25 mg Tablet PO SCH (09:00)
[2019-03-02] MEDS ORDERED: Non-Formulary Item 1 EACH (Insulin Detemir 100 Units/Ml [Levemir] 50 UNIT) SQ SCH (09:00)
[2019-03-02] MEDS ORDERED: Insulin Glargine 50 UNITS in Pre-Filled Syringe SC SCH (09:00)
[2019-03-02 09:02] LABS: Lactic Acid 1.3 mmol/L (0.5-2.2)
[2019-03-02 09:05] LABS: ALT (SGPT) 15 U/L (8-55); AST (SGOT) 15 U/L (5-34); Albumin 3.7 g/dL (3.5-5.0); Alkaline Phosphatase 75 U/L (40-150); Anion Gap 16 mmol/L (10-20); BUN (Urea Nitrogen) 29 mg/dL (7.0-18.7); Bilirubin, Total 0.2 mg/dL (0.2-1.2); CK (CPK) 145 U/L (29-168); Calc. Creatinine Clearance 67 mL/min (70-130); Calcium 9.5 mg/dL (7.8-10.44); Carbon Dioxide 23 mmol/L (22-29); Chloride 103 mmol/L (98-107); Estimated GFR-MDRD 39; Globulin 3.8 g/dL (2.4-3.5); Glucose 199 mg/dL (70-105); Lipase 118 U/L (8-78); Potassium 3.5 mmol/L (3.5-5.1); Protein, Total 7.5 g/dL (6.0-8.3); Sodium 138 mmol/L (136-145)
[2019-03-02] MEDS: hydrALAZINE 25 MG TAB PO SCH ×2 (09:05→14:41)
[2019-03-02] MEDS ORDERED: Acetaminophen/Codeine 30-300mg Tablet PO PRN (09:16)
[2019-03-02] MEDS ORDERED: Lidocaine Patch Removal 1 EACH TOP SCH (09:30)
[2019-03-02] MEDS ORDERED: Lidocaine 5% Patch TD SCH (09:30)
--- NOTE | 2019-03-02 09:32 | PDOC.EVN ---
Event Note - Event Note Event Note: Reviewed the case with Lela Mitchell. Right flank pain without CVAT. Hx of osei, hyst. Negative CT (possible small cyst right kidney). Afebrile, normal WBC, bland urine. Differential includes radiculopathy, viral, musculoskeletal. Will check renal US and change to po analgesia. If manageable, can discharge to follow up with PCP at scheduled appt. on Monday.
[2019-03-02 12:22] VITALS: TEMP 98.2
[2019-03-02] MEDS: HumaLOG 300 UNITS/3 ML VIAL SC PRN ×2 (12:49→17:12)
[2019-03-02 15:21] VITALS: BP 138/64
[2019-03-02] MEDS ORDERED: Lidocaine 2% Viscous Solution 10 ML, Aluminum & Magnesium Hydroxide 30 ML SSW SCH (16:30)
[2019-03-02] MEDS ORDERED: Carvedilol 25 MG TAB PO SCH (21:00)
[2019-03-02] MEDS ORDERED: Atorvastatin Calcium 10 MG TAB PO SCH (21:00)
[2019-03-03] MEDS ORDERED: Amlodipine 10 MG TAB PO SCH (09:00)
[2019-03-03] MEDS ORDERED: Lidocaine 5% Patch TD SCH (09:00)
== END 2019-03-02 17:26 | disposition home or self-care (01) ==
LOC: ERS 20:50 → 2SW 03-02 03:19
PROVIDERS: ADMIT Internal Medicine; ATTEND Internal Medicine
DX: R10.11 Right upper quadrant pain (principal); I10 Essential (primary) hypertension; N17.9 Acute kidney failure, unspecified; E11.65 Type 2 diabetes mellitus with hyperglycemia; E78.5 Hyperlipidemia, unspecified; E78.00 Pure hypercholesterolemia, unspecified; Z79.899 Other long term (current) drug therapy
CPT/HCPCS: 36415; 36416; 71045; 74176; 80053; 81003; 81015; 81025; 82550; 83605; 83690; 84484; 85025; 93005; 94760; 96361; 96374; 96375; 96376; G0378; J1825; J2270; J2405

== ENCOUNTER 2019-04-17 19:43 | Emergency (ER) | payer SELFPAY ==
--- NOTE | 2019-04-17 21:08 | RAD ---
EXAM: Single view of the chest HISTORY: Chest pain COMPARISON: 03/01/2019 FINDINGS: Single view of the chest shows a normal sized cardiomediastinal silhouette. There is no hannah dence of consolidation, mass, or pleural effusion. The bones are unremarkable. Surgical clips are seen in the left axilla. IMPRESSION: No evidence of acute cardiopulmonary disease
[2019-04-17 21:20] LABS: #Eosinphils 0.1 thou/uL (0.0-0.7); #Lymphocytes 2.4 thou/uL (1.20-3.40); #Monocytes 0.7 thou/uL (0.11-0.59); #Neutrophils 5.8 thou/uL (1.40-6.50); %Basophils 0.1 % (0.0-1.0); %Eosinophils 1.4 % (0.0-10.0); %Lymphocytes 26.5 % (21.0-51.0); %Monocytes 7.8 % (0.0-10.0); %Neutrophils 64.2 % (42.0-75.0); Hemoglobin 10.5 g/dL (12.0-16.0); Mean Corpuscular HGB CONC 32.8 g/dL (32.0-36.0); Mean Corpuscular Hemoglobin 23.7 pg (27.0-31.0); Mean Corpuscular Volume 72.2 fL (78.0-98.0); Platelet Count 286 thou/uL (130-400); RBC Distribution Width 16.2 % (11.5-14.5); Red Blood Cell (RBC) Count 4.42 mill/uL (4.20-5.40)
[2019-04-17 21:38] LABS: ALT (SGPT) 12 U/L (8-55); AST (SGOT) 14 U/L (5-34); Albumin 3.6 g/dL (3.5-5.0); Alkaline Phosphatase 68 U/L (40-150); Anion Gap 15 mmol/L (10-20); BUN (Urea Nitrogen) 45 mg/dL (7.0-18.7); Bilirubin, Total 0.2 mg/dL (0.2-1.2); Calc. Creatinine Clearance 0 mL/min (70-130); Calcium 9.4 mg/dL (7.8-10.44); Carbon Dioxide 21 mmol/L (22-29); Chloride 102 mmol/L (98-107); Estimated GFR-MDRD 29; Globulin 3.7 g/dL (2.4-3.5); Glucose 131 mg/dL (70-105); Magnesium 1.8 mg/dL (1.6-2.6); Potassium 3.1 mmol/L (3.5-5.1); Protein, Total 7.3 g/dL (6.0-8.3); Sodium 135 mmol/L (136-145)
--- NOTE | 2019-04-20 22:10 | EKG ---
Test Reason : Blood Pressure : / mmHG Vent. Rate : 082 BPM Atrial Rate : 082 BPM P-R Int : 164 ms QRS Dur : 098 ms QT Int : 394 ms P-R-T Axes : 062 -01 051 degrees QTc Int : 460 ms Normal sinus rhythm Inferior infarct , age undetermined Abnormal ECG Confirmed by JENNI TORRES ([id number]), news editor RG CHICAS ([id number]) on 04/20/2019 10:09:21 PM Referred By: Confirmed By:JENNI TORRES
--- NOTE | 2019-04-20 22:10 | EKG ---
Test Reason : Blood Pressure : / mmHG Vent. Rate : 072 BPM Atrial Rate : 072 BPM P-R Int : 180 ms QRS Dur : 106 ms QT Int : 414 ms P-R-T Axes : 059 006 032 degrees QTc Int : 453 ms Normal sinus rhythm Possible Left atrial enlargement Borderline ECG Confirmed by JENNI TORRES ([id number]), television news video editor RG CHICAS ([id number]) on 04/20/2019 10:09:22 PM Referred By: Confirmed By:JENNI TORRES
== END 2019-04-17 23:09 | disposition home or self-care (01) ==
LOC: ERS 19:43
DX: F41.9 Anxiety disorder, unspecified (principal); E86.0 Dehydration; F43.9 Reaction to severe stress, unspecified; I48.91 Unspecified atrial fibrillation; E78.5 Hyperlipidemia, unspecified; I10 Essential (primary) hypertension; Z79.899 Other long term (current) drug therapy; Z79.4 Long term (current) use of insulin
CPT/HCPCS: 36416; 71045; 80053; 83735; 84443; 84484; 85025; 93005; 96360

== ENCOUNTER 2019-06-21 10:37 | Outpatient (CLI) | payer OTHER ==
--- NOTE | 2019-06-21 11:32 | MMO ---
Bilateral MAMMO Bilat Screen [facility]. CLINICAL HISTORY: Patient is 49 years old and is seen for screening. The patient has the following family history of breast cancer: cousin female and maternal aunt. The patient has a history of Ultrasound Guided Core Biopsy procedure revealed infiltrating Adenocarcinoma in the left breast in September,; Ultrasound Guided Core Biopsy procedure revealed infiltrating Adenocarcinoma in the left breast in September, and infiltrating Adenocarcinoma in the left breast in August,. The patient has a history of right Stereotatic Biopsy in 2008 - benign and left Lumpectomy in August, - malignant. VIEWS: The views performed were: bilateral craniocaudal with tomosynthesis and bilateral mediolateral oblique with tomosynthesis. FILMS COMPARED: The present examination has been compared to prior imaging studies performed at [facility] on 06/04/2018, and at [facility] on 10/24/2015, 12/23/2016 and 12/29/2016. MAMMOGRAM FINDINGS: There are scattered fibroglandular densities. Finding 1: There are benign appearing calcifications seen in both breasts. Finding 2: There is an area of skin retraction, an area of architectural distortion and a post-surgical scar seen in the left breast. There are no suspicious masses, suspicious calcifications, or new areas of architectural distortion. IMPRESSION: THERE IS NO MAMMOGRAPHIC EVIDENCE OF MALIGNANCY. A ROUTINE FOLLOW-UP MAMMOGRAM IN 1 YEAR IS RECOMMENDED. THE RESULTS OF THIS EXAM WERE SENT TO THE PATIENT. ACR BI-RADS Category 2 - Benign finding MAMMOGRAPHY NOTE: 1. A negative mammogram report should not delay a biopsy if a dominant of clinically suspicious mass is present. 2. Approximately 10% to 15% of breast cancers are not detected by mammography. 3. Adenosis and dense breasts may obscure an underlying neoplasm. Reported by: NA WILSON MD Electonically Signed: [id number]
== END 2019-06-21 10:38 | disposition home or self-care (01) ==
LOC: BICMAMMO 10:37
PROVIDERS: ATTEND Family Medicine
DX: Z12.31 Encounter for screening mammogram for malignant neoplasm of breast (principal)
CPT/HCPCS: 77063; 77067

== ENCOUNTER 2019-07-13 07:38 | Emergency (ER) | payer OTHER ==
--- NOTE | 2019-07-13 08:40 | CT ---
CT head noncontrast HISTORY: Fall. Head injury. FINDINGS: There is no evidence of acute intracranial hemorrhage or infarct. The ventricles appear nor mal in size, shape and position. There is no mass effect or shift of midline structures. Visualized paranasal sinuses remain well aerated. IMPRESSION: No acute intracranial abnormalities are demonstrated.
--- NOTE | 2019-07-13 08:45 | CT ---
CT Cervical Spine WO Con Indication: 49-year-old female with fall and neck injury COMPARISON: Prior exam dated July 25, 2010. FINDINGS: Acute fracture/subluxation: None. There is a stable posterior midline fusion defect of C1. Small ossi maykel is seen posterior to the left C1 articular pillar which is a developmental variant. Spinal alignment: No acute malalignment. Craniocervical junction: Within normal limits. Vertebral body heights: Maintained. Cervical spine degenerative change: None of significance. Lung apices: Clear. IMPRESSION: No acute osseous abnormality.
== END 2019-07-13 09:29 | disposition home or self-care (01) ==
LOC: ERS 07:38
DX: S00.03XA Contusion of scalp, initial encounter (principal); I49.9 Cardiac arrhythmia, unspecified; I48.91 Unspecified atrial fibrillation; E11.9 Type 2 diabetes mellitus without complications; E78.5 Hyperlipidemia, unspecified; E78.00 Pure hypercholesterolemia, unspecified; I10 Essential (primary) hypertension; F41.9 Anxiety disorder, unspecified; Z79.899 Other long term (current) drug therapy; Z79.4 Long term (current) use of insulin; W18.30XA Fall on same level, unspecified, initial encounter
CPT/HCPCS: 70450; 72125

== ENCOUNTER 2019-09-25 02:23 | Emergency (ER) | payer OTHER ==
[2019-09-25] MEDS ORDERED: Acetaminophen 500 MG TAB ONE (02:52)
--- NOTE | 2019-09-25 09:36 | RAD ---
LEFT FIFTH TOE 3 VIEWS: Date; 09/25/19 HISTORY: Pain following injury. FINDINGS: There is a circumscribed linear opacity which overlies the fourth and fifth toe region. Given its ellen nge in position, I feel like this is probably not a foreign body, although it is not visualized on th e lateral view. This could represent some type of artifact. Correlate clinically. Soft tissue swellin g of the fifth toe, but no overt acute fracture. IMPRESSION: 1. Soft tissue swelling of the fifth toe without overt acute fracture. 2. Abnormal linear opacity overlying the fourth and fifth toes on the AP and oblique views, possibly a foreign body, or more likely an artifact. POS: SAM
== END 2019-09-25 03:07 | disposition home or self-care (01) ==
LOC: ERS 02:23
DX: S90.122A Contusion of left lesser toe(s) without damage to nail, initial encounter (principal); E11.9 Type 2 diabetes mellitus without complications; E78.5 Hyperlipidemia, unspecified; I10 Essential (primary) hypertension; E78.00 Pure hypercholesterolemia, unspecified; F41.9 Anxiety disorder, unspecified; I48.91 Unspecified atrial fibrillation; Z79.4 Long term (current) use of insulin; Z79.891 Long term (current) use of opiate analgesic; Z79.899 Other long term (current) drug therapy; W22.03XA Walked into furniture, initial encounter

== ENCOUNTER 2019-11-14 10:13 | Outpatient (CLI) | payer BC ==
--- NOTE | 2019-11-14 12:26 | ULT ---
TRANSABDOMINAL TRANSVAGINAL PELVIC ULTRASOUND DATE:: 11/14/2019 12:00 AM CLINICAL HISTORY: History of left ovarian cyst and hysterectomy. COMPARISON: CT the abdomen and pelvis dated March 01, 2019 TECHNIQUE: Grayscale, color Doppler and spectral Doppler images were obtained of the pelvis see a tra nsabdominal transvaginal approach Uterus: Surgically absent Ovaries: Size: right measures 2.9 x 3.0 x 2.4 cm; left measures 2.4 x 2.0 x 2.1 cm Mass: None. Flow: Normal Cul-de-sac: No free fluid IMPRESSION: Resolution of the previously seen cystic abnormality involving the left ovary on the comparison CT th e abdomen and pelvis dated March 01, 2019. The uterus is surgically absent. Both adnexa demonstrated no focal lesion and appropriate blood flow.
== END 2019-11-14 10:14 | disposition home or self-care (01) ==
LOC: BICULT 10:13
PROVIDERS: ATTEND Family Medicine
DX: N83.202 Unspecified ovarian cyst, left side (principal)
CPT/HCPCS: 36415; 76856; 80061; 80069; 81003; 82570; 84156; 84550; 85027; 85652

== ENCOUNTER 2020-04-27 12:40 | Observation (INO) | payer BC ==
[2020-04-27 13:39] LABS: #Basophils 0.1 thou/uL (0.0-0.2); #Eosinphils 0.1 thou/uL (0.0-0.7); #Lymphocytes 2.3 thou/uL (1.20-3.40); #Monocytes 0.5 thou/uL (0.11-0.59); %Basophils 0.9 % (0.0-1.0); %Eosinophils 1.9 % (0.0-10.0); %Lymphocytes 32.5 % (21.0-51.0); %Monocytes 6.8 % (0.0-10.0); %Neutrophils 57.9 % (42.0-75.0); Hemoglobin 11.3 g/dL (12.0-16.0); Mean Corpuscular HGB CONC 31.6 g/dL (32.0-36.0); Mean Corpuscular Hemoglobin 23.1 pg (27.0-31.0); Mean Corpuscular Volume 73.4 fL (78.0-98.0); Platelet Count 297 thou/uL (130-400); RBC Distribution Width 16.6 % (11.5-14.5); Red Blood Cell (RBC) Count 4.88 mill/uL (4.20-5.40)
[2020-04-27] MEDS ORDERED: Diltiazem 125 MG in Sodium Chloride 0.9% 100 ML IVPB SCH ×2 (13:45→15:45)
[2020-04-27] MEDS ORDERED: Enoxaparin Sodium 100 MG/ML SYRINGE ONE (14:07)
[2020-04-27 14:28] LABS: Anisocytosis SLIGHT = 6-15 cells (100X) (0-5/hpf); Hypochromia SLIGHT = 6-15 cells (100X) (0-5/hpf); MDiff Complete? YES; Microcytosis SLIGHT = 6-15 cells (100X) (0-5/hpf); Ovalocytes SLIGHT = 2-5 cells (100X) (0-1/hpf); Platelet Morphology Comment Appears Adequate; Polychromasia SLIGHT = 2-3 cells (100X) (0-2/hpf)
--- NOTE | 2020-04-27 14:39 | RAD ---
CHEST 1 VIEW: Date: 04/27/2020 HISTORY: Palpitations, shortness of breath, history of atrial fibrillation, and chest pain. COMPARISON: 04/17/2019. FINDINGS/Impression: No cardiomegaly, pneumonia, edema, or other acute process. Normal chest POS: RRE
[2020-04-27 14:45] LABS: ALT (SGPT) 14 U/L (8-55); AST (SGOT) 17 U/L (5-34); Albumin 3.4 g/dL (3.5-5.0); Alkaline Phosphatase 65 U/L (40-110); Anion Gap 16 mmol/L (10-20); BUN (Urea Nitrogen) 42 mg/dL (7.0-18.7); Bilirubin, Total 0.2 mg/dL (0.2-1.2); CK (CPK) 451 U/L (29-168); Calc. Creatinine Clearance 0 mL/min (70-130); Calcium 9.4 mg/dL (7.8-10.44); Carbon Dioxide 23 mmol/L (22-29); Chloride 102 mmol/L (98-107); Estimated GFR-MDRD 27; Globulin 3.6 g/dL (2.4-3.5); Glucose 179 mg/dL (70-105); Potassium 3.5 mmol/L (3.5-5.1); Sodium 137 mmol/L (136-145)
--- NOTE | 2020-04-27 14:56 | PDOC.FPRHP ---
- History of Present Illness Chief Complaint: SOB, palpitations History of Present Illness: 50 yo F with a history of Afib, HTN, and insulin dependent DMII presented to ED complaining of SOB and palpitations since 4:30 this morning. Patient reports she woke up and was feeling her heart racing and having trouble catching her breath. She took her BP which was 116/86 and her HR was 105. Patient took her daily PO medication, including 180mg of diltiazem and an aspirin. She explains the feeling was similar to how her Afib has felt before. The last time she was hospitalized for it was last year. She went back to sleep and woke up again at 10am still feeling short of breath. Pt reports she was unable to walk to bathroom without breathing heavy and felt fatigued and weak. Patient also reports chest pain occurring at this time that she describes as a pressure in the middle of her chest. This pressure has since dissipated. Patient reports a headache that began 30 min prior to presentation. She denies any changes in vision, nausea, vomiting, or diarrhea. Patient did not take her morning insulin. ED Course: EKG showed Afib w/RVR (HR 107). Diltiazem 5mg/hr drip, lovenox 100mg. BPs within normal limits, HR in 80s - Allergies/Adverse Reactions Allergies Allergy/AdvReac Type Severity Reaction Status Date / Time tramadol Allergy Emesis Verified 01/05/20 15:10 - Home Medications Medication Instructions Recorded Confirmed Type Amlodipine Besylate [amLODIPine 10 mg PO DAILY 10/13/16 04/27/20 History Besylate] Insulin Detemir 100 UNITS/ML 50 unit SQ BID 10/13/16 04/27/20 History [Levemir] Lisinopril 20 mg PO DAILY 10/13/16 04/27/20 History hydrALAZINE [Apresoline] 50 mg PO TID 10/13/16 04/27/20 History Carvedilol 12.5 mg PO BID #60 tablet 03/03/17 04/27/20 Rx Aspirin [Aspir-Low] 81 mg PO DAILY 12/07/17 04/27/20 History Triamterene/Hydrochlorothiazid 1 each PO DAILY 12/07/17 04/27/20 History [Triamterene-Hctz 37.5-25 mg Cp] Diltiazem HCl [Cardizem CD] 180 mg PO DAILY #30 cap 12/08/17 04/27/20 Rx Atorvastatin Calcium 75 mg PO HS 03/02/19 04/27/20 History Famotidine 20 mg PO BID #60 tablet 03/02/19 04/27/20 Rx Gabapentin 500 mg PO BID 03/02/19 04/27/20 History Sennosides/Docusate Sodium 1 tablet PO BID PRN #60 tablet 03/02/19 04/27/20 Rx [Senna-S Tablet] - History PMHx: HTN, ID DMII, hyperlipidemia, breast cancer (2008) s/p lumpectomy/ chemotherapy/radiation PSHx: lumpectomy-2008, partial hysterectomy, cholecystectomy FHx: Mom-DM, HTN Dad- of heart attack 6 mo ago 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 denies: cough, congestion Cardiovascular: reports: chest pain, palpitation. denies: edema Gastrointestinal: denies: nausea, vomiting, diarrhea, constipation, abdominal pain Genitourinary: denies: dysuria Neurological: denies: syncope - Vital signs BP: 132/84 HR: 83 RR: 99 Tmax: 97.9 Pox: 99% on RA Wt: 104kg - Physical Exam Constitutional: awake, alert and oriented HEENT: normocephalic and atraumatic, EOMI, grossly normal hearing Heart: RRR, no murmurs/rubs/gallops, pulses present, no edema -Heart: irregular pulse Lungs: CTAB Abdomen: soft, non-tender Musculoskeletal: ROM grossly normal Neurological: no focal deficit Psychiatric: normal mood and affect, good judgment and insight, intact recent and remote memory FMR H&P: Results - Labs Result Diagrams: 04/28/20 04:45 04/28/20 04:45 Lab results: WBC 7.0 thou/uL (4.8-10.8) 04/27/20 12:57 Hgb 11.3 g/dL (12.0-16.0) L 04/27/20 12:57 Hct 35.8 % (36.0-47.0) L 04/27/20 12:57 MCV 73.4 fL (78.0-98.0) L 04/27/20 12:57 Plt Count 297 thou/uL (130-400) 04/27/20 12:57 Neutrophils % 57.9 % (42.0-75.0) 04/27/20 12:57 Sodium 137 mmol/L (136-145) 04/27/20 12:57 Potassium 3.5 mmol/L (3.5-5.1) 04/27/20 12:57 Chloride 102 mmol/L (98-107) 04/27/20 12:57 Carbon Dioxide 23 mmol/L (22-29) 04/27/20 12:57 BUN 42 mg/dL (7.0-18.7) H 04/27/20 12:57 Creatinine 2.34 mg/dL (0.6-1.1) H 04/27/20 12:57 Glucose 179 mg/dL (70-105) H 04/27/20 12:57 Calcium 9.4 mg/dL (7.8-10.44) 04/27/20 12:57 Total Bilirubin 0.2 mg/dL (0.2-1.2) 04/27/20 12:57 AST 17 U/L (5-34) 04/27/20 12:57 ALT 14 U/L (8-55) 04/27/20 12:57 Alkaline Phosphatase 65 U/L (40-110) 04/27/20 12:57 Creatine Kinase 451 U/L (29-168) H 04/27/20 12:57 Serum Total Protein 7.0 g/dL (6.0-8.3) 04/27/20 12:57 Albumin 3.4 g/dL (3.5-5.0) L 04/27/20 12:57 trop 0.022 - EKG Interpretation EKG: Atrial fibrillation with rapid ventricular response - Radiology Interpretation Chest x-ray Status: report reviewed by me Additional comment: no cardiopumonary disease process FMR H&P: A/P - Problem List (1) Atrial fibrillation with RVR Current Visit: Yes Status: Acute Code(s): I48.91 - UNSPECIFIED ATRIAL FIBRILLATION (2) MARÍA (acute kidney injury) Current Visit: Yes Status: Acute Code(s): N17.9 - ACUTE KIDNEY FAILURE, UNSPECIFIED (3) Hyperlipidemia Current Visit: Yes Status: Acute Code(s): E78.5 - HYPERLIPIDEMIA, UNSPECIFIED (4) DM2 (diabetes mellitus, type 2) Current Visit: No Status: Chronic 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 #Afib w/RVR - ED EKG showed Afib w/RVR (Hr 107). Patient took dilitiazem 180mg at home and was given 100mg lovenox and started on diltiazem 5mg/hr in ED. - Patient is not on anticoagulation at home. - Gave patient 40mg additional diltiazem - Diltiazem 240mg PO daily - Continue diltiazem drip - Anti-Xa 6 hours following lovenox injection #MARÍA - Cr 2.34 - Patient's baseline Cr is ~1.7 - LR 120mL/hr #HTN - normotensive - Continue home meds #DMII - Trulicity taken Monday, 04/27 - Continue Levemir 50units BID #Hyperlipidemia - Continue home meds Diet: CC 2000 IVF: LR 120 mL/hr PPx: lovenox 100mg - therapeutic Code: FULL PCP: Ros Attending: Isamar Dispo: Discharge pending resolution of symptoms. Expected LOS <48hrs. FMR H&P: Upper Level - Plan Date/Time: 04/27/20 4429 IRonni DO, have evaluated this patient and agree with findings/plan as outlined by sport internship resident. Pertinent changes/additions are listed here. This is a 50 yo female with a pmh of HTN, HLD, DM2, and atrial fibrillation who presents to the ER with a cc of palpitations and SOB. She states her symptoms started this AM and have been continuous. She reports a heaviness in her chest that has improved since being in the ER. She denies nausea, vomiting, diaphoresis, dizziness, or weakness. She reports that she has been doing well in regards to her atrial fibrillation. This patient had a similar admission in 2018 and was treated with IV diltiazem and was subsequently discharged on this medication. At that time, she was not placed on anticoagulation likely due to her lower CHADsVASc score. She denies any previous ablations, watchman procedures, or MIs. Objective: Vitals: BP 138/81, HR 88, RR 26, Temp 98.1, SpO2 99 on RA, Wt 104 kg General: NAD HEENT: AT/NC, MMM Resp: CTAB, no adventitious sounds Cardio: Irregularly irregular rhythm, normal rate Extremities: Warm, no edema, pulses 2+ throughout A/P Atrial fibrillation with RVR -Admit to tele obs -Currently on diltiazem drip 5mg/hr -Plan to continue home diltiazem and increase to 240mg daily -CHADsVASc score of 3: 3.2% risk of stroke per year, will discuss starting anticoagulation with pt MARÍA on CKD 3 -Baseline Cr 1.85 -Will give some IVFs HTN -Continue home BP medications DM -Continue home DM medications -Diabetic protocols per orders Code: Full Prophylaxis: Lovenox Family: None at bedside Fluids: SL after bolus Drips: Diltiazem 5mg/hr Diet: HH, CC Disposition: DC in 1-2 days PCP: Dr. Silva See sport internship note for further information and treatment of chronic conditions. Addendum - Attending - Attending Attestation Date/Time: 04/28/20 0204 I personally evaluated the patient and discussed the management with Dr. Feliz/ Al I agree with the History, Examination, Assessment and Plan documented above with any addition or exceptions noted below. See my event note for details.
[2020-04-27] MEDS ORDERED: Ondansetron ODT 4 MG TAB PO PRN (15:05)
[2020-04-27] MEDS ORDERED: Acetaminophen 325 MG TAB PO PRN (15:05)
[2020-04-27] MEDS ORDERED: Ondansetron PF 4 MG/2 ML Vial IVP PRN (15:05)
[2020-04-27] MEDS ORDERED: Calcium Carbonate 500 MG ChewTAB PO PRN (15:05)
[2020-04-27] MEDS ORDERED: Diltiazem HCl SR 60 mg Capsule PO SCH (15:25)
[2020-04-27] MEDS ORDERED: Lactated Ringer's 1,000 ML IV SCH ×2 (15:30→16:00)
--- NOTE | 2020-04-27 16:16 | PDOC.EVN ---
Event Note - Event Note Event Note: pt seen and evaluated. Reviewed case and documentation by Dr. Feliz/Al. Presented with palpitations that started this morning. PMH a-fib on rate control medication but not on chronic anticoagulation, HTN, DM2, and what appears to be CKD 3b vs 4. Exam unremarkable. Labs showed mild elevation in CPK. EKG showed borderline LVH with mild RVR (pulse 108). CXR neg. Obs for A- fib w/ RVR. Restart home meds. IV fluids for mild MARÍA. Will titrate rate control meds. Discussed anticoagulation initiation. Will f/u tomorrow as patient is not ready to decide yet. PPx lovenox in hospital. Trend renal function. She needs close outpatient follow up and referral to nephrology outpatient.
[2020-04-27 17:04] LABS: Amphetamine Not Detected (NotDetected); Barbiturates Screen Not Detected (NotDetected); Benzodiazepine Screen Not Detected (NotDetected); Cocaine Metabolite Screen Not Detected (NotDetected); Medtox Control Line Valid? VALID (VALID); Medtox Reader # READER 4; Methadone Not Detected (NotDetected); Methamphetamine Not Detected (NotDetected); Opiate Screen Detected (NotDetected); Oxycodone Screen Not Detected (NotDetected); Phencyclidine (PCP) Not Detected (NotDetected); THC/Cannabinoid Screen Detected (NotDetected); Tricyclic Screen Not Detected (NotDetected)
[2020-04-27] MEDS: Carvedilol 6.25 MG TAB PO SCH (20:50)
[2020-04-27] MEDS: hydrALAZINE 25 MG TAB PO SCH (20:51)
[2020-04-27] MEDS ORDERED: Non-Formulary Item 1 EACH (Insulin Detemir 100 Units/Ml [Levemir] 50 UNIT) SQ SCH (21:00)
[2020-04-27] MEDS ORDERED: Insulin Glargine 50 UNITS in Pre-Filled Syringe 1 EACH SC SCH (21:00)
[2020-04-27] MEDS ORDERED: Enoxaparin Sodium 80 MG/0.8 ML SYRINGE SC SCH ×2 (21:00)
[2020-04-27] MEDS ORDERED: Atorvastatin Calcium 40 MG TAB PO SCH (21:00)
[2020-04-27] MEDS: Gabapentin 300 MG CAP PO SCH (21:16)
[2020-04-27 22:26] LABS: Troponin I 0.032 ng/mL (< 0.028)
[2020-04-28 05:17] LABS: #Basophils 0.1 thou/uL (0.0-0.2); #Eosinphils 0.2 thou/uL (0.0-0.7); #Lymphocytes 2.9 thou/uL (1.20-3.40); #Monocytes 0.6 thou/uL (0.11-0.59); #Neutrophils 3.8 thou/uL (1.40-6.50); %Basophils 0.7 % (0.0-1.0); %Eosinophils 2.5 % (0.0-10.0); %Lymphocytes 38.5 % (21.0-51.0); %Monocytes 7.6 % (0.0-10.0); %Neutrophils 50.7 % (42.0-75.0); Hemoglobin 11.5 g/dL (12.0-16.0); Mean Corpuscular Hemoglobin 23.7 pg (27.0-31.0); Mean Corpuscular Volume 73.9 fL (78.0-98.0); Mean Platelet Volume 10.3 fL (7.4-10.4); Platelet Count 284 thou/uL (130-400); RBC Distribution Width 16.5 % (11.5-14.5); Red Blood Cell (RBC) Count 4.86 mill/uL (4.20-5.40); White Blood Cell (WBC) Count 7.6 thou/uL (4.8-10.8)
[2020-04-28 05:44] LABS: ALT (SGPT) 12 U/L (8-55); AST (SGOT) 17 U/L (5-34); Albumin 3.2 g/dL (3.5-5.0); Alkaline Phosphatase 64 U/L (40-110); Anion Gap 16 mmol/L (10-20); BUN (Urea Nitrogen) 43 mg/dL (7.0-18.7); Bilirubin, Total 0.2 mg/dL (0.2-1.2); Calc. Creatinine Clearance 52 mL/min (70-130); Calcium 9.1 mg/dL (7.8-10.44); Carbon Dioxide 21 mmol/L (22-29); Chloride 104 mmol/L (98-107); Estimated GFR-MDRD 28; Globulin 3.2 g/dL (2.4-3.5); Glucose 250 mg/dL (70-105); Potassium 3.5 mmol/L (3.5-5.1); Protein, Total 6.4 g/dL (6.0-8.3); Sodium 137 mmol/L (136-145)
[2020-04-28] MEDS ORDERED: Dextrose 5% in Water 1,000 ML IV PRN (06:12)
[2020-04-28] MEDS ORDERED: HumaLOG 300 UNITS/3 ML VIAL SC PRN (06:12)
[2020-04-28] MEDS ORDERED: Dextrose 50% Abboject 50 ML SYRINGE SLOW IVP PRN (06:12)
--- NOTE | 2020-04-28 06:15 | PDOC.FM ---
- Subjective Subjective: Patient reports when she went to the restroom around 4am she felt like her heart was racing and the same pressure in her chest as the morning before. She was unable to sleep last night due to the anxiety of her admission. Ms. Newby is tearful and anxious this morning when discussing her care. - Objective Vital Signs & Weight: Vital Signs (12 hours) Temp Pulse Resp BP BP Pulse Ox 04/28/20 03:55 97.8 F 72 14 126/73 100 04/27/20 20:51 114 H 04/27/20 20:50 130/59 L 04/27/20 19:43 97.8 F 84 20 120/77 100 04/27/20 19:14 97.8 F 84 20 120/79 100 Weight Weight 109.225 kg I&O: 04/26/20 04/27/20 04/28/20 06:59 06:59 06:59 Intake Total 240 Balance 240 Result Diagrams: 04/28/20 04:45 04/28/20 04:45 Additional Labs: UDS: +opiates, +marijuana trop: .022->.02->.032 EKG Reviewed by me: Yes (telemetry showed stable a-fib throughout the night, HR in 80s) Phys Exam - Physical Examination Respiratory: no wheezing Cardiovascular: no significant murmur irregular rhythm consistent with a fib Gastrointestinal: soft, non-tender Musculoskeletal: no edema Neurological: moves all 4 limbs Psychiatric: A&O x 3 Dx/Plan (1) Atrial fibrillation with RVR Code(s): I48.91 - UNSPECIFIED ATRIAL FIBRILLATION Status: Acute (2) MARÍA (acute kidney injury) Code(s): N17.9 - ACUTE KIDNEY FAILURE, UNSPECIFIED Status: Acute (3) Hyperlipidemia Code(s): E78.5 - HYPERLIPIDEMIA, UNSPECIFIED Status: Acute (4) DM2 (diabetes mellitus, type 2) Status: Chronic Qualifiers: Diabetes mellitus snf insulin use: with snf use Diabetes mellitus complication status: with unspecified complications (5) Hypertension Code(s): I10 - ESSENTIAL (PRIMARY) HYPERTENSION Status: Chronic Qualifiers: Hypertension type: essential hypertension Qualified Code(s): I10 - Essential (primary) hypertension - Plan Plan: 50 yo female with a history of Afib presented to ED complaining of SOB, palpitations, fatigue, and weakness. #Afib w/RVR - ED EKG showed Afib w/RVR (Hr 107). Patient took dilitiazem 180mg at home and was given 100mg lovenox and started on diltiazem 5mg/hr in ED. - Patient is not on anticoagulation at home. Stroke risk via CHADsVasc score (3 points) - 3.2%. Bleeding risk via HAS-BLED (1-2 points) - 3.75%. Will discuss benefits and risks with patient. Consider initiating anticoagulation at discharge. 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 Encourage patient to follow-up after discharge. #HTN - normotensive - Continue home meds #DMII - Trulicity taken Monday, 04/27 - Continue Levemir 50units BID #Hyperlipidemia - Continue home meds Diet: CC 2000 IVF: LR 120 mL/hr 1 bag PPx: lovenox 100mg - subtherapeutic Code: FULL PCP: Ros Attending: Isamar Dispo: Discharge pending resolution of symptoms. Expected LOS <48hrs. Addendum - Attending - Attending Attestation Date/Time: 04/28/20 6000 I personally evaluated the patient and discussed the management with Dr. Feliz. I agree with the History, Examination, Assessment and Plan documented above with any addition or exceptions noted below. Start on eliquis. if rate controlled off dilt gtt, d/c home.
[2020-04-28] MEDS: hydrALAZINE 25 MG TAB PO SCH ×2 (08:26→15:17)
[2020-04-28] MEDS: Carvedilol 6.25 MG TAB PO SCH (08:26)
[2020-04-28] MEDS: Gabapentin 300 MG CAP PO SCH (08:26)
[2020-04-28] MEDS ORDERED: Amlodipine 10 MG TAB PO SCH (09:00)
[2020-04-28] MEDS ORDERED: Enoxaparin Sodium 40 MG/0.4 ML SYRINGE SC SCH (09:00)
[2020-04-28] MEDS ORDERED: Aspirin 81 mg Enteric Coated Tablet PO SCH (09:00)
[2020-04-28] MEDS ORDERED: Insulin Glargine 50 UNITS in Pre-Filled Syringe 1 EACH SC SCH (09:00)
[2020-04-28] MEDS ORDERED: Triamterene/Hydrochlorothiazide 37.5 mg/25 mg Tablet PO SCH (09:00)
[2020-04-28] MEDS ORDERED: Lisinopril 20 MG TAB PO SCH (09:00)
[2020-04-28 15:18] VITALS: BP 126/66
[2020-04-28 16:15] VITALS: TEMP 96.2
[2020-04-28] MEDS ORDERED: Apixaban 5 MG TAB PO SCH (16:45)
--- NOTE | 2020-04-29 02:31 | DIS ---
DATE OF ADMISSION: 04/27/2020 DATE OF DISCHARGE: 04/28/2020 RESIDENT: Niko Feliz MD ADMITTING ATTENDING: Lee Penn MD DISCHARGE ATTENDING: Lee Penn MD CONSULTS: None. PROCEDURES: Chest x-ray, normal. EKG, AFib with RVR, heart rate of 107. PRIMARY DIAGNOSIS: Atrial fibrillation with rapid ventricular response. SECONDARY DIAGNOSES: 1. Acute kidney injury. 2. Hypertension. 3. Diabetes, type 2, insulin dependant. 4. Hyperlipidemia. DISCHARGE MEDICATIONS: 1. Hydralazine 50 mg p.o. t.i.d. 2. Levemir 50 units subcu b.i.d. 3. Lisinopril 20 mg p.o. daily. 4. Amlodipine 10 mg p.o. daily. 5. Carvedilol 12.5 mg p.o. b.i.d. 6. Triamterene-hydrochlorothiazide one each p.o. daily. 7. Aspirin 81 mg p.o. daily. 8. Diltiazem 240 mg p.o. daily. 9. Atorvastatin 20 mg p.o. 10. Gabapentin 300 mg p.o. b.i.d. 11. Famotidine 20 mg p.o. b.i.d. 12. Sennoside/docusate sodium one tablet p.o. b.i.d. as needed. 13. Eliquis 2.5 mg t.i.d. DISCONTINUED MEDICATIONS: Diltiazem 180 mg p.o. daily. HISTORY OF PRESENT ILLNESS AND HOSPITAL COURSE: A 50-year-old female, with a history of AFib, hypertension, and insulin-dependant type 2 diabetes, presented to ED, complaining of shortness of breath and palpitation and was found to be in AFib with RVR with a heart rate of 107. Patient was not on any anticoagulation. Patient had taken home diltiazem dose of 180 mg that morning when palpitations began. Patient was admitted, given an additional 60 mg of diltiazem and started on diltiazem drip at 5 mg/hour. Patient was rate controlled overnight. The drip was discontinued after patient received morning dose of 240 mg of diltiazem. Patient remained rate controlled throughout the day and converted to sinus rhythm before discharged. Risk and benefits regarding anticoagulation were discussed with patient and patient agreed to start Eliquis. Patient is discharged on new higher dose of diltiazem. Of note, patient had an elevated creatinine of 2.34 when admitted. Her baseline is around 1.8. Patient received 1 L of lactated Ringer's with only a mild improvement of her creatinine to 2.25. Patient is encouraged to follow up with her credit analyst following discharge. DISPOSITION: Stable. DISCHARGE INSTRUCTIONS: 1. Location. Home. 2. Diet. Heart healthy. 3. Activity. As tolerated. 4. Followup. Follow up with PCP, Dr. Silva, at [facility] and her credit analyst. Job ID: [id number]
== END 2020-04-28 18:33 | disposition home or self-care (01) ==
LOC: ERS 12:40 → ERHOLD 15:05 → 2NO 18:38
PROVIDERS: ADMIT Family Medicine; ATTEND Family Medicine
DX: I48.91 Unspecified atrial fibrillation (principal); N17.9 Acute kidney failure, unspecified; I10 Essential (primary) hypertension; E11.9 Type 2 diabetes mellitus without complications; E78.5 Hyperlipidemia, unspecified; Z79.01 Long term (current) use of anticoagulants; Z79.4 Long term (current) use of insulin; Z79.84 Long term (current) use of oral hypoglycemic drugs; Z79.899 Other long term (current) drug therapy; Z88.5 Allergy status to narcotic agent
CPT/HCPCS: 36415; 36416; 71045; 80053; 80306; 82550; 83880; 84484; 85025; 85520; 93005; 96365; 96366; 96372; 96376; G0378; J1650; J1815; J3490

== ENCOUNTER 2021-01-12 10:07 | Outpatient (CLI) | payer BC | END 2021-01-12 10:08 | disposition home or self-care (01) | LOC: BICMAMMO 10:07 | PROVIDERS: ATTEND Obstetrics & Gynecology | DX: Z12.31 Encounter for screening mammogram for malignant neoplasm of breast (principal); Z80.3 Family history of malignant neoplasm of breast; Z85.3 Personal history of malignant neoplasm of breast | CPT/HCPCS: 77063; 77067 ==

== ENCOUNTER 2021-01-14 09:29 | Outpatient (CLI) | payer BC | END 2021-01-14 09:30 | disposition home or self-care (01) | LOC: BICMAMMO 09:29 | PROVIDERS: ATTEND Obstetrics & Gynecology | DX: R92.8 Other abnormal and inconclusive findings on diagnostic imaging of breast (principal); Z80.3 Family history of malignant neoplasm of breast; Z85.3 Personal history of malignant neoplasm of breast; R92.1 Mammographic calcification found on diagnostic imaging of breast | CPT/HCPCS: G0279 ==

== ENCOUNTER → 2021-01-25 | Day surgery (SDC) | payer BC | LOC: MAMMO 07:09 | PROVIDERS: ATTEND Obstetrics & Gynecology | PROC: 0H9U0ZX Drainage of Left Breast, Open Approach, Diagnostic (ICD-10-PCS; principal; 2021-01-25) | DX: C50.812 Malignant neoplasm of overlapping sites of left female breast (principal); Z88.5 Allergy status to narcotic agent | CPT/HCPCS: 19081; 76098; 88305 ==

== ENCOUNTER 2021-02-05 09:16 | Outpatient (CLI) | payer BC | END 2021-02-05 09:17 | disposition home or self-care (01) | LOC: BICULT 09:16 | PROVIDERS: ATTEND Specialist | DX: C50.412 Malignant neoplasm of upper-outer quadrant of left female breast (principal); J90 Pleural effusion, not elsewhere classified | CPT/HCPCS: 71046 ==

== ENCOUNTER 2021-02-10 10:50 | Outpatient (CLI) | payer BC ==
[2021-02-10 12:06] LABS: Anion Gap 16 mmol/L (10-20); BUN (Urea Nitrogen) 40 mg/dL (7.0-18.7); Calc. Creatinine Clearance 0 mL/min (70-130); Carbon Dioxide 23 mmol/L (22-29); Chloride 111 mmol/L (98-107); Glucose 88 mg/dL (70-105); Potassium 3.5 mmol/L (3.5-5.1); Sodium 146 mmol/L (136-145)
[2021-02-10 12:49] LABS: #Basophils 0.1 10x3/uL (0.0-0.2); #Eosinphils 0.1 10x3/uL (0.0-0.5); #Monocytes 0.6 10x3/uL (0.0-1.1); #Neutrophils 3.5 10x3/uL (1.5-8.4); %Basophils 0.8 % (0.0-2.0); %Lymphocytes 27.6 % (18.0-47.0); %Monocytes 9.7 % (0.0-10.0); %Neutrophils 59.4 % (40.0-75.0); Hemoglobin 8.3 g/dL (12.0-15.5); Mean Corpuscular HGB CONC 30.5 g/dL (32.0-36.0); Mean Corpuscular Hemoglobin 22.1 pg (27.0-33.0); Mean Corpuscular Volume 72.3 fl (81.6-98.3); Mean Platelet Volume 9.5 fl (7.4-10.4); Platelet Count 280 10x3/uL (150-450); RBC Distribution Width 18.5 % (11.5-14.5); Red Blood Cell (RBC) Count 3.76 10x6/uL (3.90-5.03)
[2021-02-10 18:21] LABS: SARS-CoV-2 PCR by NAA Not Detected (NotDetected)
== END 2021-02-10 10:51 | disposition home or self-care (01) ==
LOC: LABBT 10:50
PROVIDERS: ATTEND Obstetrics & Gynecology
DX: Z01.818 Encounter for other preprocedural examination (principal); Z20.822 Contact with and (suspected) exposure to COVID-19
CPT/HCPCS: 80048; 85025; 87635; 93005; 93010; U0003; U0005

== ENCOUNTER 2021-02-12 06:56 | Day surgery (SDC) | payer BC ==
[2021-02-11 16:13] VITALS: BMI 39.1
[2021-02-12] MEDS ORDERED: Bupivacaine PF 0.5% 30 ML VIAL ONE (08:43)
[2021-02-12] MEDS ORDERED: Lidocaine 2% PF 5 ML VIAL ONE (08:43)
[2021-02-12] MEDS ORDERED: Dextrose 50% Abboject 50 ML SYRINGE ONE (08:43)
[2021-02-12] MEDS ORDERED: Fentanyl 100 MCG/2 ML VIAL ONE (09:24)
[2021-02-12] MEDS ORDERED: PROPOFOL 200 MG/20 ML VIAL ONE (09:32)
[2021-02-12] MEDS ORDERED: Ondansetron PF 4 MG/2 ML Vial ONE (09:32)
[2021-02-12] MEDS ORDERED: Lidocaine 1% PF 5 ML VIAL ONE (09:32)
[2021-02-12] MEDS ORDERED: HYDROcodone/Acetaminophen 5/325 mg Tablet ONE (10:37)
== END 2021-02-12 11:39 | disposition home or self-care (01) ==
LOC: SDC 06:56 → MERGE 10:45 → SDC 11:39
PROVIDERS: ATTEND Specialist
PROC: 02HV33Z Insertion of Infusion Device into Superior Vena Cava, Percutaneous Approach (ICD-10-PCS; principal; 2021-02-12)
DX: C50.412 Malignant neoplasm of upper-outer quadrant of left female breast (principal); I12.9 Hypertensive chronic kidney disease with stage 1 through stage 4 chronic kidney disease, or unspecified chronic kidney disease; E11.22 Type 2 diabetes mellitus with diabetic chronic kidney disease; E11.319 Type 2 diabetes mellitus with unspecified diabetic retinopathy without macular edema; N18.30 Chronic kidney disease, stage 3 unspecified; D63.1 Anemia in chronic kidney disease; I48.0 Paroxysmal atrial fibrillation; Z17.1 Estrogen receptor negative status [ER-]; Z79.01 Long term (current) use of anticoagulants; Z79.4 Long term (current) use of insulin; Z79.82 Long term (current) use of aspirin; Z79.899 Other long term (current) drug therapy; Z88.5 Allergy status to narcotic agent; Z88.8 Allergy status to other drugs, medicaments and biological substances
CPT/HCPCS: 36416; 71045; C1788; J0690; J1642; J2001; J2405; J2704; J3010; S0020

== ENCOUNTER 2021-02-26 12:07 | Day surgery (SDC) | payer BC ==
[2021-02-26] MEDS ORDERED: Acetaminophen 500 MG TAB PO SCH (12:45)
[2021-02-26] MEDS ORDERED: diphenhydrAMINE 25 MG CAP PO SCH (12:45)
[2021-02-26] MEDS ORDERED: Sodium Chloride 0.9% 20 ML ONE (13:25)
[2021-02-26 16:45] VITALS: BP 199/84; TEMP 98
== END 2021-02-26 16:46 | disposition home or self-care (01) ==
LOC: ONC/OP 12:07
PROVIDERS: ATTEND Internal Medicine Hematology & Oncology
PROC: 30233N1 Transfusion of Nonautologous Red Blood Cells into Peripheral Vein, Percutaneous Approach (ICD-10-PCS; principal; 2021-02-26)
DX: D64.9 Anemia, unspecified (principal); D69.6 Thrombocytopenia, unspecified; Z88.5 Allergy status to narcotic agent
CPT/HCPCS: 36430; 80053; 86850; 86900; 86901; J1642; P9016; Q0163

== ENCOUNTER 2021-03-16 08:57 | Inpatient (IN) | payer BC, SELFPAY ==
[2021-03-16] MEDS ORDERED: Diltiazem 125 MG/25 ML ONE (09:34)
[2021-03-16] MEDS ORDERED: Aspirin Chewable 81 MG TAB ONE (09:34)
[2021-03-16 10:19] LABS: Band 23 % (5-11); Bite Cells SLIGHT = 2-5 cells (100X) (0-1/hpf); Eosinophils 2 % (0-10); Hemoglobin 8.6 g/dL (12.0-16.0); Lymphocytes 33 % (21-51); MDiff Complete? YES; Mean Corpuscular Hemoglobin 25.3 pg (27.0-31.0); Mean Corpuscular Volume 79.2 fL (78.0-98.0); Mean Platelet Volume 6.9 fL (7.4-10.4); Monocytes 14 % (0-10); Neutrophil 28 % (42-75); Nucleated RBC 2 % (0); Ovalocytes SLIGHT = 2-5 cells (100X) (0-1/hpf); Platelet Count 94 thou/uL (130-400); Platelet Morphology Comment Appears Decreased; Polychromasia SLIGHT = 2-3 cells (100X) (0-2/hpf); RBC Distribution Width 20.8 % (11.5-14.5); Red Blood Cell (RBC) Count 3.41 mill/uL (4.20-5.40); Schistocytes SLIGHT = 2-5 cells (100X) (0-1/hpf); White Blood Cell (WBC) Count 6.8 thou/uL (4.8-10.8)
[2021-03-16 10:25] LABS: ALT (SGPT) 15 U/L (8-55); AST (SGOT) 9 U/L (5-34); Albumin 2.3 g/dL (3.5-5.0); Alkaline Phosphatase 61 U/L (40-110); Anion Gap 13 mmol/L (10-20); BUN (Urea Nitrogen) 58 mg/dL (7.0-18.7); Bilirubin, Total 0.2 mg/dL (0.2-1.2); Calc. Creatinine Clearance 0 mL/min (70-130); Calcium 7.2 mg/dL (7.8-10.44); Carbon Dioxide 22 mmol/L (22-29); Chloride 115 mmol/L (98-107); Globulin 1.7 g/dL (2.4-3.5); Glucose 144 mg/dL (70-105); Potassium 3.5 mmol/L (3.5-5.1); Sodium 146 mmol/L (136-145)
[2021-03-16 10:41] LABS: CKMB 2.2 ng/mL (0-6.6)
[2021-03-16] MEDS ORDERED: Senokot S 8.6-50 MG TAB PO PRN (12:15)
[2021-03-16] MEDS ORDERED: Dextrose 50% Abboject 50 ML SYRINGE SLOW IVP PRN (12:15)
[2021-03-16] MEDS ORDERED: Dextrose 5% in Water 1,000 ML IV PRN (12:15)
[2021-03-16] MEDS ORDERED: HumaLOG 300 UNITS/3 ML VIAL SC PRN ×2 (12:15)
[2021-03-16] MEDS ORDERED: Ondansetron PF 4 MG/2 ML Vial IVP PRN (12:15)
[2021-03-16 13:09] LABS: Magnesium 1.3 mg/dL (1.6-2.6); Phosphorus 3.5 mg/dL (2.3-4.7)
[2021-03-16 13:14] LABS: Troponin I 0.038 ng/mL (< 0.028)
[2021-03-16] MEDS ORDERED: Magnesium 2 GM/50 ML 2 GM in Sodium Chloride 0.9% 100 ML IVPB SCH (14:00)
[2021-03-16] MEDS ORDERED: Potassium Chloride 20 MEQ in Premix Bag 1 BAG IVPB SCH ×2 (14:00→20:00)
[2021-03-16 16:13] LABS: Troponin I 0.035 ng/mL (< 0.028)
[2021-03-16 17:43] VITALS: BMI 42.1
[2021-03-16] MEDS ORDERED: Magnesium 2 GM/50 ML 2 GM in Premix Bag 1 BAG IVPB SCH (18:00)
[2021-03-16] MEDS ORDERED: Acetaminophen 500 MG TAB PO PRN (21:05)
[2021-03-16] MEDS: Melatonin 3 MG TAB PO PRN (21:23)
[2021-03-16] MEDS: Acetaminophen 500 MG TAB PO PRN (21:23)
[2021-03-17] MEDS: Acetaminophen 500 MG TAB PO PRN (03:37)
[2021-03-17] MEDS: Amlodipine 10 MG TAB PO SCH (03:38)
[2021-03-17 04:11] LABS: SARS-CoV-2 NAA Rapid Test Not Detected (NotDetected)
[2021-03-17 05:40] LABS: Phosphorus 3.3 mg/dL (2.3-4.7)
[2021-03-17 05:42] LABS: Band 18 % (5-11); Hemoglobin 8.7 g/dL (12.0-16.0); Hypochromia SLIGHT = 6-15 cells (100X) (0-5/hpf); Lymphocytes 21 % (21-51); MDiff Complete? YES; Mean Corpuscular Hemoglobin 25.9 pg (27.0-31.0); Mean Corpuscular Volume 78.5 fL (78.0-98.0); Mean Platelet Volume 6.6 fL (7.4-10.4); Monocytes 10 % (0-10); Neutrophil 51 % (42-75); Platelet Count 117 thou/uL (130-400); Platelet Morphology Comment Appears Adequate; RBC Distribution Width 20.7 % (11.5-14.5); Red Blood Cell (RBC) Count 3.35 mill/uL (4.20-5.40); White Blood Cell (WBC) Count 11.1 thou/uL (4.8-10.8)
[2021-03-17 05:44] LABS: ALT (SGPT) 15 U/L (8-55); AST (SGOT) 11 U/L (5-34); Albumin 2.3 g/dL (3.5-5.0); Alkaline Phosphatase 75 U/L (40-110); Anion Gap 14 mmol/L (10-20); BUN (Urea Nitrogen) 50 mg/dL (7.0-18.7); Bilirubin, Total 0.2 mg/dL (0.2-1.2); Calc. Creatinine Clearance 33 mL/min (70-130); Calcium 7.6 mg/dL (7.8-10.44); Carbon Dioxide 17 mmol/L (22-29); Chloride 113 mmol/L (98-107); Globulin 2.3 g/dL (2.4-3.5); Glucose 228 mg/dL (70-105); Magnesium 1.5 mg/dL (1.6-2.6); Potassium 3.6 mmol/L (3.5-5.1); Protein, Total 4.6 g/dL (6.0-8.3); Sodium 140 mmol/L (136-145)
[2021-03-17] MEDS ORDERED: Magnesium 2 GM/50 ML 2 GM in Premix Bag 1 BAG IVPB SCH (06:45)
[2021-03-17] MEDS ORDERED: hydrALAZINE 25 MG TAB PO SCH ×2 (07:00→09:00)
[2021-03-17] MEDS ORDERED: Dulaglutide (Trulicity) 0.75 MG/0.5 ML Pen.Injctr SC SCH (08:00)
[2021-03-17] MEDS: Carvedilol 25 MG TAB PO SCH ×2 (08:00→20:55)
[2021-03-17] MEDS: Apixaban 2.5 MG TAB PO SCH ×2 (08:00→20:56)
[2021-03-17] MEDS ORDERED: Potassium Chloride 20 MEQ TAB PO SCH (08:00)
[2021-03-17] MEDS: Gabapentin 300 MG CAP PO SCH ×2 (08:01→20:55)
[2021-03-17] MEDS: Lantus 1000 UNITS/10 ML VIAL SC SCH ×2 (08:03→20:55)
[2021-03-17] MEDS: Ondansetron ODT 4 MG TAB PO PRN (08:06)
[2021-03-17] MEDS ORDERED: Furosemide 20 MG/2 ML VIAL SLOW IVP SCH (08:45)
[2021-03-17] MEDS ORDERED: Diltiazem HCl SR 60 mg Capsule PO SCH (12:15)
[2021-03-17] MEDS: hydrALAZINE 25 MG TAB PO SCH ×2 (14:39→20:55)
[2021-03-17] MEDS: Melatonin 3 MG TAB PO PRN (20:55)
[2021-03-17] MEDS: Atorvastatin Calcium 20 MG TAB PO SCH (20:56)
[2021-03-18 07:42] LABS: Anion Gap 9 mmol/L (10-20); BUN (Urea Nitrogen) 44 mg/dL (7.0-18.7); Calc. Creatinine Clearance 34 mL/min (70-130); Carbon Dioxide 21 mmol/L (22-29); Chloride 115 mmol/L (98-107); Glucose 87 mg/dL (70-105); Magnesium 1.7 mg/dL (1.6-2.6); Potassium 3.4 mmol/L (3.5-5.1); Sodium 142 mmol/L (136-145)
[2021-03-18] MEDS ORDERED: Potassium Chloride 20 MEQ TAB PO SCH (08:30)
[2021-03-18] MEDS ORDERED: Magnesium 2 GM/50 ML 2 GM in Premix Bag 1 BAG IVPB SCH (08:45)
[2021-03-18] MEDS ORDERED: Furosemide 20 MG/2 ML VIAL SLOW IVP SCH ×2 (08:45→18:15)
[2021-03-18] MEDS: Lantus 1000 UNITS/10 ML VIAL SC SCH ×2 (08:49→20:15)
[2021-03-18] MEDS: Gabapentin 300 MG CAP PO SCH ×2 (08:52→20:14)
[2021-03-18] MEDS: hydrALAZINE 25 MG TAB PO SCH ×3 (08:53→20:13)
[2021-03-18] MEDS: Carvedilol 25 MG TAB PO SCH ×2 (08:53→20:13)
[2021-03-18] MEDS: Apixaban 2.5 MG TAB PO SCH ×2 (08:53→20:14)
[2021-03-18] MEDS: Amlodipine 10 MG TAB PO SCH (08:53)
[2021-03-18] MEDS: Diltiazem HCl CD 300 mg Capsule PO SCH (08:53)
[2021-03-18] MEDS: cloNIDine 0.2 MG TAB PO PRN (10:50)
[2021-03-18] MEDS: Atorvastatin Calcium 20 MG TAB PO SCH (20:13)
[2021-03-19 05:11] LABS: Anion Gap 12 mmol/L (10-20); BUN (Urea Nitrogen) 39 mg/dL (7.0-18.7); Calc. Creatinine Clearance 34 mL/min (70-130); Calcium 8.1 mg/dL (7.8-10.44); Carbon Dioxide 20 mmol/L (22-29); Chloride 114 mmol/L (98-107); Glucose 66 mg/dL (70-105); Magnesium 1.8 mg/dL (1.6-2.6); Potassium 3.5 mmol/L (3.5-5.1); Sodium 142 mmol/L (136-145)
[2021-03-19] MEDS ORDERED: Magnesium 2 GM/50 ML 2 GM in Premix Bag 1 BAG IVPB SCH (06:45)
[2021-03-19] MEDS ORDERED: Potassium Chloride 20 MEQ TAB PO SCH (06:45)
[2021-03-19] MEDS ORDERED: Furosemide 40 MG TAB PO SCH (08:00)
[2021-03-19] MEDS: Gabapentin 300 MG CAP PO SCH (08:17)
[2021-03-19] MEDS: Diltiazem HCl CD 300 mg Capsule PO SCH (08:17)
[2021-03-19] MEDS: Carvedilol 25 MG TAB PO SCH (08:17)
[2021-03-19] MEDS: Amlodipine 10 MG TAB PO SCH (08:17)
[2021-03-19] MEDS: hydrALAZINE 25 MG TAB PO SCH ×2 (08:18→16:06)
[2021-03-19] MEDS: Lantus 1000 UNITS/10 ML VIAL SC SCH (08:18)
[2021-03-19] MEDS: Apixaban 2.5 MG TAB PO SCH (08:18)
[2021-03-19] MEDS: Ondansetron ODT 4 MG TAB PO PRN (12:21)
[2021-03-19] MEDS: cloNIDine 0.2 MG TAB PO PRN (16:07)
[2021-03-19 16:36] VITALS: BP 180/79; TEMP 97.6
== END 2021-03-19 18:57 | disposition home or self-care (01) | DRG 291 ==
LOC: ERS 08:57 → ERHOLD 10:42 → OBSVTOIN 10:42 → 2SW 17:06
PROVIDERS: ADMIT Student in an Organized Health Care Education/Training Program; ATTEND Student in an Organized Health Care Education/Training Program
DX: I13.0 Hypertensive heart and chronic kidney disease with heart failure and stage 1 through stage 4 chronic kidney disease, or unspecified chronic kidney disease (principal); I50.33 Acute on chronic diastolic (congestive) heart failure; K52.1 Toxic gastroenteritis and colitis; Z68.41 Body mass index [BMI] 40.0-44.9, adult; N17.9 Acute kidney failure, unspecified; I48.0 Paroxysmal atrial fibrillation; Z20.822 Contact with and (suspected) exposure to COVID-19; E11.22 Type 2 diabetes mellitus with diabetic chronic kidney disease; K21.9 Gastro-esophageal reflux disease without esophagitis; N18.30 Chronic kidney disease, stage 3 unspecified; E66.9 Obesity, unspecified; G47.33 Obstructive sleep apnea (adult) (pediatric); T45.1X5A Adverse effect of antineoplastic and immunosuppressive drugs, initial encounter; C50.919 Malignant neoplasm of unspecified site of unspecified female breast; D63.1 Anemia in chronic kidney disease; D69.6 Thrombocytopenia, unspecified; B00.9 Herpesviral infection, unspecified; I89.0 Lymphedema, not elsewhere classified; Z88.5 Allergy status to narcotic agent; Z79.82 Long term (current) use of aspirin; Z79.4 Long term (current) use of insulin; Z79.899 Other long term (current) drug therapy; Z90.49 Acquired absence of other specified parts of digestive tract
CPT/HCPCS: 36415; 36416; 71045; 80048; 80053; 82553; 83735; 83880; 84100; 84443; 84484; 85025; 93005; 93010; 96365; 96366; 96367; 96375; 96376; G0378; J1642; J1815; J1940; J3475; J3480; Q0162; U0002; U0003; U0005

== ENCOUNTER 2021-04-07 11:15 | Outpatient (CLI) | payer BC | END 2021-04-07 11:16 | disposition home or self-care (01) | LOC: RAD 11:15 | PROVIDERS: ATTEND Internal Medicine Hematology & Oncology | DX: Z45.2 Encounter for adjustment and management of vascular access device (principal); T82.598A Other mechanical complication of other cardiac and vascular devices and implants, initial encounter; C50.112 Malignant neoplasm of central portion of left female breast; D50.0 Iron deficiency anemia secondary to blood loss (chronic); J90 Pleural effusion, not elsewhere classified | CPT/HCPCS: 36598; 87070; 87077; 87186; 87205; J1642 ==

== ENCOUNTER 2021-04-12 15:13 | Outpatient (CLI) | payer BC ==
[2021-04-12 17:36] LABS: Anion Gap 16 mmol/L (10-20); BUN (Urea Nitrogen) 36 mg/dL (7.0-18.7); Calc. Creatinine Clearance 0 mL/min (70-130); Calcium 8.2 mg/dL (7.8-10.44); Carbon Dioxide 20 mmol/L (22-29); Chloride 112 mmol/L (98-107); Glucose 70 mg/dL (70-105); Potassium 3.5 mmol/L (3.5-5.1); Sodium 144 mmol/L (136-145)
[2021-04-12 17:53] LABS: Mean Corpuscular HGB CONC 31.4 g/dL (32.0-36.0); Mean Corpuscular Hemoglobin 25.1 pg (27.0-33.0); Mean Corpuscular Volume 79.9 fl (81.6-98.3); Platelet Count 308 10x3/uL (150-450); RBC Distribution Width 22.6 % (11.5-14.5); Red Blood Cell (RBC) Count 3.19 10x6/uL (3.90-5.03); White Blood Cell (WBC) Count 23.6 10x3/uL (3.5-10.5)
[2021-04-12 20:28] LABS: Band 1 % (5-11); Lymphocytes 9 % (21-51); MDiff Complete? YES; Monocytes 4 % (0-10); Neutrophil 86 % (42-75)
[2021-04-12 20:29] LABS: Anisocytosis MODERATE=16-30 cells (100X) (0-5/hpf); Hypochromia SLIGHT = 6-15 cells (100X) (0-5/hpf); Microcytosis SLIGHT = 6-15 cells (100X) (0-5/hpf)
[2021-04-12 20:30] LABS: Platelet Morphology Comment Appears Adequate
[2021-04-13 17:00] LABS: SARS-CoV-2 PCR by NAA Not Detected (NotDetected)
== END 2021-04-12 15:14 | disposition home or self-care (01) ==
LOC: LABBT 15:13
PROVIDERS: ATTEND Specialist
DX: Z01.818 Encounter for other preprocedural examination (principal); T80.212A Local infection due to central venous catheter, initial encounter; C50.412 Malignant neoplasm of upper-outer quadrant of left female breast; Z92.3 Personal history of irradiation; Z20.822 Contact with and (suspected) exposure to COVID-19
CPT/HCPCS: 80048; 85025; 93005; 93010; U0003; U0005

== ENCOUNTER 2021-04-14 07:36 | Day surgery (SDC) | payer BC ==
[2021-04-13 09:48] VITALS: BMI 36.0
[2021-04-14] MEDS ORDERED: Acetaminophen 500 MG TAB ONE ×2 (08:24)
[2021-04-14] MEDS ORDERED: EPINEPHrine 1 MG/ML AMP ONE (08:49)
[2021-04-14] MEDS ORDERED: Bupivacaine 0.25% HCL 30 ML VIAL ONE (08:49)
[2021-04-14] MEDS ORDERED: Bupivacaine PF 0.5% 30 ML VIAL ONE ×2 (08:50→10:49)
[2021-04-14] MEDS ORDERED: Fentanyl 100 MCG/2 ML VIAL ONE (10:15)
[2021-04-14] MEDS ORDERED: Midazolam HCl 2 mg/2 ml Vial ONE (10:15)
[2021-04-14] MEDS ORDERED: Propofol 500 MG/50 ML VIAL ONE (10:15)
[2021-04-14] MEDS ORDERED: Lidocaine 1% w/Epinephrine 1:100K 20 ML VIAL ONE (10:49)
== END 2021-04-14 13:42 | disposition home or self-care (01) ==
LOC: SDC 07:36
PROVIDERS: ATTEND Specialist
PROC: 02HV33Z Insertion of Infusion Device into Superior Vena Cava, Percutaneous Approach (ICD-10-PCS; principal; 2021-04-14)
DX: C50.412 Malignant neoplasm of upper-outer quadrant of left female breast (principal); I12.9 Hypertensive chronic kidney disease with stage 1 through stage 4 chronic kidney disease, or unspecified chronic kidney disease; E11.22 Type 2 diabetes mellitus with diabetic chronic kidney disease; E11.319 Type 2 diabetes mellitus with unspecified diabetic retinopathy without macular edema; E11.3299 Type 2 diabetes mellitus with mild nonproliferative diabetic retinopathy without macular edema, unspecified eye; N18.2 Chronic kidney disease, stage 2 (mild); D63.1 Anemia in chronic kidney disease; E78.5 Hyperlipidemia, unspecified; I48.0 Paroxysmal atrial fibrillation; Z79.4 Long term (current) use of insulin; Z79.899 Other long term (current) drug therapy; Z88.5 Allergy status to narcotic agent; Z88.6 Allergy status to analgesic agent
CPT/HCPCS: 36416; 71045; 93970; C1788; J0171; J0690; J1642; J2250; J2704; J3010; S0020

== ENCOUNTER 2021-04-20 11:04 | Day surgery (SDC) | payer BC ==
[2021-04-20] MEDS ORDERED: Acetaminophen 500 MG TAB PO PRN (11:29)
[2021-04-20] MEDS ORDERED: diphenhydrAMINE 25 MG CAP PO PRN (11:30)
[2021-04-20] MEDS ORDERED: cloNIDine 0.2 MG TAB PO SCH (13:30)
[2021-04-20] MEDS ORDERED: Sodium Chloride 0.9% 20 ML ONE (14:29)
[2021-04-20 14:31] VITALS: BP 185/86; TEMP 98.5
== END 2021-04-20 15:22 | disposition home or self-care (01) ==
LOC: ONC/OP 11:04
PROVIDERS: ATTEND Internal Medicine Hematology & Oncology
PROC: 30233N1 Transfusion of Nonautologous Red Blood Cells into Peripheral Vein, Percutaneous Approach (ICD-10-PCS; principal; 2021-04-20)
DX: D64.9 Anemia, unspecified (principal); D69.6 Thrombocytopenia, unspecified; Z88.5 Allergy status to narcotic agent; Z88.6 Allergy status to analgesic agent
CPT/HCPCS: 36430; 86850; 86900; 86901; J1642; P9016; Q0163

== ENCOUNTER 2021-05-21 11:45 | Inpatient (IN) | payer BC ==
[2021-05-21 12:25] LABS: Hemoglobin 8.3 g/dL (12.0-16.0); Mean Corpuscular HGB CONC 32.2 g/dL (32.0-36.0); Mean Corpuscular Hemoglobin 27.2 pg (27.0-31.0); Mean Corpuscular Volume 84.3 fL (78.0-98.0); Mean Platelet Volume 11.3 fL (7.4-10.4); Platelet Count 123 thou/uL (130-400); RBC Distribution Width 18.4 % (11.5-14.5); Red Blood Cell (RBC) Count 3.07 mill/uL (4.20-5.40); White Blood Cell (WBC) Count 18.6 thou/uL (4.8-10.8)
[2021-05-21 12:38] LABS: ALT (SGPT) 11 U/L (8-55); AST (SGOT) 16 U/L (5-34); Albumin 2.4 g/dL (3.5-5.0); Alkaline Phosphatase 119 U/L (40-110); Anion Gap 14 mmol/L (10-20); BUN (Urea Nitrogen) 54 mg/dL (7.0-18.7); Bilirubin, Total 0.2 mg/dL (0.2-1.2); Calc. Creatinine Clearance 0 mL/min (70-130); Calcium 7.5 mg/dL (7.8-10.44); Carbon Dioxide 21 mmol/L (22-29); Chloride 114 mmol/L (98-107); Globulin 2.5 g/dL (2.4-3.5); Glucose 96 mg/dL (70-105); Magnesium 1.2 mg/dL (1.6-2.6); Potassium 3.4 mmol/L (3.5-5.1); Protein, Total 4.9 g/dL (6.0-8.3); Sodium 146 mmol/L (136-145)
[2021-05-21 12:43] LABS: Anisocytosis SLIGHT = 6-15 cells (100X) (0-5/hpf); Band 8 % (5-11); Lymphocytes 7 % (21-51); MDiff Complete? YES; Monocytes 6 % (0-10); Neutrophil 79 % (42-75); Ovalocytes SLIGHT = 2-5 cells (100X) (0-1/hpf); Platelet Morphology Comment Appears Decreased; Polychromasia SLIGHT = 2-3 cells (100X) (0-2/hpf); Vacuoles SLIGHT
[2021-05-21] MEDS ORDERED: Cefepime 2 GM VIAL ONE (14:44)
[2021-05-21] MEDS ORDERED: CEFAZOLIN 2 GM in Premix Bag 1 BAG IVPB SCH (15:00)
[2021-05-21] MEDS ORDERED: Vancomycin 1 GM/200 ML BAG ONE (15:17)
[2021-05-21 15:25] LABS: CKMB 2.4 ng/mL (0-6.6)
[2021-05-21] MEDS ORDERED: Ondansetron PF 4 MG/2 ML Vial IVP PRN (15:38)
[2021-05-21] MEDS ORDERED: cloNIDine 0.2 MG TAB PO PRN (16:48)
[2021-05-21] MEDS ORDERED: Calcium Carbonate 500 MG ChewTAB PO PRN (16:50)
[2021-05-21] MEDS ORDERED: Dextrose 50% Abboject 50 ML SYRINGE SLOW IVP PRN (17:00)
[2021-05-21] MEDS ORDERED: Dextrose 5% in Water 1,000 ML IV PRN (17:00)
[2021-05-21] MEDS ORDERED: HumaLOG 300 UNITS/3 ML VIAL SC PRN (17:00)
[2021-05-21] MEDS ORDERED: Furosemide 20 MG/2 ML VIAL SLOW IVP SCH (17:30)
[2021-05-21 17:51] LABS: Iron 26 ug/dL (50-170); Iron Binding Capacity, Total 126 mcg/dL (265-497)
[2021-05-21] MEDS ORDERED: Magnesium 2 GM/50 ML 2 GM in Premix Bag 1 BAG IVPB SCH (18:15)
[2021-05-21] MEDS ORDERED: Furosemide 40 MG/4 ML VIAL SLOW IVP SCH (18:15)
[2021-05-21 18:17] LABS: Ferritin 1559.39 ng/mL (10-291)
[2021-05-21 18:21] LABS: Vitamin B12 Greater than 2000 pg/mL (211-911)
[2021-05-21 19:46] LABS: Troponin I 0.055 ng/mL (< 0.028)
[2021-05-21] MEDS ORDERED: Furosemide 40 MG/4 ML VIAL ONE (19:58)
[2021-05-21 20:22] LABS: Bilirubin Negative (Negative); Blood, Urine 1+ (Negative); Clarity Clear (Clear); Glucose, Urine (Dipstick) 50 mg/dL (Negative); Ketone, Urine Negative (Negative); Leukocyte Negative Leu/uL (Negative); Mucous/LPF Rare LPF (<2+); Nitrite Negative (Negative); Protein, Urine (Dipstick) 600 mg/dL (Neg-Trace); RBC/HPF 0-3 HPF (0-3); Specific Gravity, Urine 1.018 (1.002-1.036); Squamous Epithelial 0-3 HPF (0-3); Urobilinogen Normal mg/dL (Less than 2); pH, Urine 6.5 (5.0-9.0)
[2021-05-21 20:29] LABS: Bacteria/HPF 1+ HPF (None Seen)
[2021-05-21] MEDS ORDERED: Gabapentin 300 MG CAP PO SCH (21:00)
[2021-05-21] MEDS ORDERED: Vancomycin 1 GM in Premix Bag 1 BAG IVPB SCH (21:15)
[2021-05-21] MEDS: Potassium Chloride 20 MEQ TAB PO SCH (21:20)
[2021-05-21] MEDS: Atorvastatin Calcium 20 MG TAB PO SCH (21:20)
[2021-05-21] MEDS: Carvedilol 25 MG TAB PO SCH (21:20)
[2021-05-21] MEDS: hydrALAZINE 25 MG TAB PO SCH (21:20)
[2021-05-21] MEDS: Heparin 5,000 UNITS/ML VIAL SC SCH (21:22)
[2021-05-21] MEDS ORDERED: Vancomycin HCl 1 GM in Premix Bag 1 BAG IVPB SCH (21:30)
[2021-05-21] MEDS: Acyclovir 400 mg Tablet PO SCH (21:32)
[2021-05-21] MEDS: Lantus 1000 UNITS/10 ML VIAL SC SCH (21:36)
[2021-05-21] MEDS: Tuberculin PPD 0.1 ML VIAL I-DERMAL SCH (23:49)
[2021-05-22 05:05] LABS: Band 29 % (5-11); Hemoglobin 7.7 g/dL (12.0-16.0); Lymphocytes 8 % (21-51); MDiff Complete? YES; Mean Corpuscular HGB CONC 32.2 g/dL (32.0-36.0); Mean Corpuscular Hemoglobin 27.5 pg (27.0-31.0); Mean Corpuscular Volume 85.4 fL (78.0-98.0); Mean Platelet Volume 10.8 fL (7.4-10.4); Metamyelocyte 3 % (0-0); Monocytes 8 % (0-10); Neutrophil 52 % (42-75); Platelet Count 131 thou/uL (130-400); Platelet Morphology Comment Appears Adequate; RBC Distribution Width 18.5 % (11.5-14.5); Red Blood Cell (RBC) Count 2.78 mill/uL (4.20-5.40); White Blood Cell (WBC) Count 16.2 thou/uL (4.8-10.8)
[2021-05-22 05:12] LABS: Phosphorus 4.6 mg/dL (2.3-4.7)
[2021-05-22 05:14] LABS: ALT (SGPT) 11 U/L (8-55); AST (SGOT) 13 U/L (5-34); Albumin 2.1 g/dL (3.5-5.0); Alkaline Phosphatase 147 U/L (40-110); Anion Gap 13 mmol/L (10-20); BUN (Urea Nitrogen) 51 mg/dL (7.0-18.7); Bilirubin, Total 0.2 mg/dL (0.2-1.2); Calc. Creatinine Clearance 32 mL/min (70-130); Calcium 7.4 mg/dL (7.8-10.44); Carbon Dioxide 22 mmol/L (22-29); Chloride 110 mmol/L (98-107); Globulin 2.3 g/dL (2.4-3.5); Glucose 161 mg/dL (70-105); Magnesium 1.4 mg/dL (1.6-2.6); Potassium 3.2 mmol/L (3.5-5.1); Protein, Total 4.4 g/dL (6.0-8.3); Sodium 142 mmol/L (136-145)
[2021-05-22 05:29] LABS: Hep C IgG Ab Non-Reactive (NonReactive); Hep C Index 0.03 S/CO (0-0.79)
[2021-05-22] MEDS: Amlodipine 10 MG TAB PO SCH (08:25)
[2021-05-22] MEDS: Gabapentin 300 MG CAP PO SCH (08:25)
[2021-05-22] MEDS: Potassium Chloride 20 MEQ TAB PO SCH ×2 (08:25→20:21)
[2021-05-22] MEDS: Carvedilol 25 MG TAB PO SCH ×2 (08:26→20:21)
[2021-05-22] MEDS: Lantus 1000 UNITS/10 ML VIAL SC SCH ×2 (08:26→22:09)
[2021-05-22] MEDS: Acyclovir 400 mg Tablet PO SCH ×2 (08:26→20:24)
[2021-05-22] MEDS: Heparin 5,000 UNITS/ML VIAL SC SCH ×3 (08:26→20:21)
[2021-05-22] MEDS: hydrALAZINE 25 MG TAB PO SCH ×3 (08:26→20:20)
[2021-05-22] MEDS: Diltiazem HCl CD 300 mg Capsule PO SCH (08:26)
[2021-05-22] MEDS ORDERED: Furosemide 40 MG/4 ML VIAL SLOW IVP SCH (08:30)
[2021-05-22] MEDS ORDERED: Magnesium 2 GM/50 ML 2 GM in Premix Bag 1 BAG IVPB SCH (08:30)
[2021-05-22] MEDS ORDERED: Potassium Chloride 20 MEQ TAB PO SCH (08:30)
[2021-05-22] MEDS: Ondansetron ODT 4 MG TAB PO PRN (09:10)
[2021-05-22] MEDS: Cefepime 2 GM in Sodium Chloride 0.9% 100 ML IVPB SCH (15:03)
[2021-05-22 16:32] LABS: Vancomycin, Random 15.3 ug/mL (See Comment)
[2021-05-22] MEDS ORDERED: Vancomycin HCl 750 MG in Sodium Chloride 0.9% 250 ML 250 ML IVPB SCH (19:00)
[2021-05-22 19:37] LABS: SARS-CoV-2 PCR by NAA Not Detected (NotDetected)
[2021-05-22] MEDS: Atorvastatin Calcium 20 MG TAB PO SCH (20:21)
[2021-05-22] MEDS: Melatonin 3 MG TAB PO PRN (22:18)
[2021-05-22] MEDS: Tuberculin PPD 0.1 ML VIAL I-DERMAL SCH (23:25)
[2021-05-23 06:24] LABS: Hemoglobin 7.5 g/dL (12.0-16.0); Mean Corpuscular HGB CONC 32.2 g/dL (32.0-36.0); Mean Corpuscular Hemoglobin 27.6 pg (27.0-31.0); Mean Corpuscular Volume 85.7 fL (78.0-98.0); Mean Platelet Volume 9.7 fL (7.4-10.4); Platelet Count 183 thou/uL (130-400); RBC Distribution Width 18.7 % (11.5-14.5); White Blood Cell (WBC) Count 16.7 thou/uL (4.8-10.8)
[2021-05-23 06:25] LABS: Band 15 % (5-11); Lymphocytes 7 % (21-51); MDiff Complete? YES; Monocytes 5 % (0-10); Neutrophil 73 % (42-75); Platelet Morphology Comment Appears Adequate
[2021-05-23 06:32] LABS: Magnesium 1.5 mg/dL (1.6-2.6)
[2021-05-23 06:34] LABS: ALT (SGPT) 10 U/L (8-55); AST (SGOT) 11 U/L (5-34); Albumin 2.3 g/dL (3.5-5.0); Alkaline Phosphatase 119 U/L (40-110); Anion Gap 12 mmol/L (10-20); BUN (Urea Nitrogen) 51 mg/dL (7.0-18.7); Bilirubin, Total 0.2 mg/dL (0.2-1.2); Calc. Creatinine Clearance 29 mL/min (70-130); Calcium 7.5 mg/dL (7.8-10.44); Carbon Dioxide 23 mmol/L (22-29); Chloride 114 mmol/L (98-107); Globulin 2.4 g/dL (2.4-3.5); Glucose 74 mg/dL (70-105); Phosphorus 4.8 mg/dL (2.3-4.7); Potassium 3.8 mmol/L (3.5-5.1); Protein, Total 4.7 g/dL (6.0-8.3); Sodium 145 mmol/L (136-145)
[2021-05-23] MEDS ORDERED: Magnesium 2 GM/50 ML 2 GM in Premix Bag 1 BAG IVPB SCH (09:30)
[2021-05-23] MEDS ORDERED: Calcium Carbonate 500 MG ChewTAB PO SCH (09:33)
[2021-05-23] MEDS ORDERED: NIFEdipine XL 30 MG TAB PO SCH (09:39)
[2021-05-23] MEDS ORDERED: Lantus 1000 UNITS/10 ML VIAL SC SCH (09:56)
[2021-05-23] MEDS: hydrALAZINE 25 MG TAB PO SCH ×3 (10:26→21:43)
[2021-05-23] MEDS: Diltiazem HCl CD 300 mg Capsule PO SCH (10:26)
[2021-05-23] MEDS: Potassium Chloride 20 MEQ TAB PO SCH ×2 (10:26→21:44)
[2021-05-23] MEDS: Heparin 5,000 UNITS/ML VIAL SC SCH ×3 (10:27→21:45)
[2021-05-23] MEDS: Carvedilol 25 MG TAB PO SCH ×2 (10:27→21:44)
[2021-05-23] MEDS: Acyclovir 400 mg Tablet PO SCH ×2 (10:27→21:44)
[2021-05-23] MEDS: Gabapentin 300 MG CAP PO SCH (10:28)
[2021-05-23] MEDS: Amlodipine 10 MG TAB PO SCH (10:59)
[2021-05-23] MEDS: Lantus 1000 UNITS/10 ML VIAL SC SCH (11:00)
[2021-05-23] MEDS: NIFEdipine XL 60 MG TAB PO SCH (11:42)
[2021-05-23] MEDS: Cefepime 2 GM in Sodium Chloride 0.9% 100 ML IVPB SCH (15:44)
[2021-05-23] MEDS: Ondansetron ODT 4 MG TAB PO PRN (16:02)
[2021-05-23 18:28] LABS: Vancomycin, Random 18.9 ug/mL (See Comment)
[2021-05-23] MEDS ORDERED: Vancomycin HCl 750 MG in Sodium Chloride 0.9% 250 ML 250 ML IVPB SCH (20:30)
[2021-05-23] MEDS: Atorvastatin Calcium 20 MG TAB PO SCH (21:44)
[2021-05-23] MEDS: Melatonin 3 MG TAB PO PRN (21:56)
[2021-05-23] MEDS: Calcium Carbonate 500 MG ChewTAB PO SCH (21:56)
[2021-05-23] MEDS: Tuberculin PPD 0.1 ML VIAL I-DERMAL SCH (22:48)
[2021-05-24 04:55] LABS: ALT (SGPT) 8 U/L (8-55); AST (SGOT) 11 U/L (5-34); Albumin 2.3 g/dL (3.5-5.0); Alkaline Phosphatase 117 U/L (40-110); Anion Gap 11 mmol/L (10-20); BUN (Urea Nitrogen) 50 mg/dL (7.0-18.7); Bilirubin, Total Less than 0.2 mg/dL (0.2-1.2); Calc. Creatinine Clearance 29 mL/min (70-130); Carbon Dioxide 23 mmol/L (22-29); Chloride 114 mmol/L (98-107); Globulin 2.3 g/dL (2.4-3.5); Glucose 115 mg/dL (70-105); Magnesium 1.7 mg/dL (1.6-2.6); Phosphorus 5.3 mg/dL (2.3-4.7); Potassium 3.8 mmol/L (3.5-5.1); Protein, Total 4.6 g/dL (6.0-8.3); Sodium 144 mmol/L (136-145)
[2021-05-24 05:13] LABS: Band 5 % (5-11); Hemoglobin 7.3 g/dL (12.0-16.0); Lymphocytes 9 % (21-51); MDiff Complete? YES; Mean Corpuscular HGB CONC 31.6 g/dL (32.0-36.0); Mean Corpuscular Hemoglobin 27.3 pg (27.0-31.0); Mean Corpuscular Volume 86.4 fL (78.0-98.0); Mean Platelet Volume 9.5 fL (7.4-10.4); Monocytes 4 % (0-10); Myelocyte 1 % (0-0); Neutrophil 80 % (42-75); Platelet Count 184 thou/uL (130-400); Platelet Morphology Comment Appears Adequate; RBC Distribution Width 18.9 % (11.5-14.5); RBC Morphology Normal; Reactive Lymphocytes 1 % (0-10); Red Blood Cell (RBC) Count 2.66 mill/uL (4.20-5.40); White Blood Cell (WBC) Count 18.5 thou/uL (4.8-10.8)
[2021-05-24] MEDS ORDERED: NIFEdipine XL 60 MG TAB PO SCH (09:00)
[2021-05-24] MEDS ORDERED: READ PPD TEST SITE PO SCH (09:00)
[2021-05-24] MEDS ORDERED: Lantus 1000 UNITS/10 ML VIAL SC SCH ×2 (09:00)
[2021-05-24 09:13] LABS: Hep B Surface AG-Rflx Sendout Negative (Negative); Hepatitis B Core Total Negative (Negative); Hepatitis B Surface AB-Sendout Reactive (.)
[2021-05-24] MEDS: NIFEdipine XL 60 MG TAB PO SCH (09:53)
[2021-05-24] MEDS: Carvedilol 25 MG TAB PO SCH ×2 (09:53→22:34)
[2021-05-24] MEDS: Diltiazem HCl CD 300 mg Capsule PO SCH (09:53)
[2021-05-24] MEDS: hydrALAZINE 25 MG TAB PO SCH ×5 (09:53→22:33)
[2021-05-24] MEDS ORDERED: Heparin 10,000 UNITS/ 10 ML VIAL ONE (10:22)
[2021-05-24] MEDS ORDERED: Heparin 5,000 UNITS/ML VIAL ONE ×2 (10:22→21:17)
[2021-05-24] MEDS ORDERED: Lidocaine 1% w/Epinephrine 1:100K 20 ML VIAL ONE (10:22)
[2021-05-24] MEDS ORDERED: Sodium Chloride 0.9% 0 ML ONE (10:22)
[2021-05-24] MEDS ORDERED: Bupivacaine PF 0.5% 30 ML VIAL ONE (10:22)
[2021-05-24] MEDS ORDERED: Fentanyl 100 MCG/2 ML VIAL ONE ×2 (10:30→10:35)
[2021-05-24] MEDS ORDERED: Propofol 500 MG/50 ML VIAL ONE (10:30)
[2021-05-24] MEDS ORDERED: Phenylephrine 10 MG/ML VIAL ONE (10:31)
[2021-05-24] MEDS ORDERED: Lidocaine 1% (PF) 30 ML VIAL ONE (10:40)
[2021-05-24] MEDS ORDERED: Promethazine HCl 25 MG/ML VIAL IM PRN (10:40)
[2021-05-24] MEDS ORDERED: Promethazine HCl 25 MG/ML VIAL IVPB PRN (10:40)
[2021-05-24] MEDS ORDERED: Ondansetron HCl/PF 4 MG/2 ML Vial IVP PRN (10:40)
[2021-05-24] MEDS ORDERED: Bupivacaine HCl 0.5%/Epinephrine 1:200,000/PF 30 ml Vial ONE (10:45)
[2021-05-24] MEDS ORDERED: CEFAZOLIN 2 GM in Premix Bag 1 BAG IVPB SCH (11:45)
[2021-05-24] MEDS: Gabapentin 300 MG CAP PO SCH (14:30)
[2021-05-24] MEDS: Potassium Chloride 20 MEQ TAB PO SCH ×2 (14:30→22:32)
[2021-05-24] MEDS: Acyclovir 400 mg Tablet PO SCH ×2 (14:30→22:34)
[2021-05-24] MEDS: Calcium Carbonate 500 MG ChewTAB PO SCH ×2 (14:30→22:33)
[2021-05-24] MEDS: Heparin 5,000 UNITS/ML VIAL SC SCH ×4 (14:30→22:33)
[2021-05-24 18:25] LABS: Vancomycin, Random 19.9 ug/mL (See Comment)
[2021-05-24] MEDS ORDERED: Vancomycin HCl 750 MG in Sodium Chloride 0.9% 250 ML 250 ML IVPB SCH (19:30)
[2021-05-24] MEDS ORDERED: hydrALAZINE 25 MG TAB ONE (21:16)
[2021-05-24] MEDS ORDERED: Carvedilol 25 MG TAB ONE (21:17)
[2021-05-24] MEDS ORDERED: Potassium Chloride 20 MEQ TAB ONE (21:18)
[2021-05-24] MEDS ORDERED: Atorvastatin Calcium 20 MG TAB ONE (21:18)
[2021-05-24] MEDS: Atorvastatin Calcium 20 MG TAB PO SCH (22:34)
[2021-05-24 22:43] LABS: Troponin I 0.031 ng/mL (< 0.028)
[2021-05-24] MEDS: Vancomycin HCl 50 MG, Sodium Chloride 0.9% 10 ML in Syringe 1 ML CATH PRN (22:46)
[2021-05-25 05:17] LABS: Band 2 % (5-11); Hemoglobin 7.3 g/dL (12.0-16.0); Hypochromia SLIGHT = 6-15 cells (100X) (0-5/hpf); Lymphocytes 9 % (21-51); MDiff Complete? YES; Mean Corpuscular HGB CONC 32.1 g/dL (32.0-36.0); Mean Corpuscular Hemoglobin 27.5 pg (27.0-31.0); Mean Corpuscular Volume 85.8 fL (78.0-98.0); Mean Platelet Volume 9.6 fL (7.4-10.4); Monocytes 2 % (0-10); Neutrophil 87 % (42-75); Platelet Count 210 thou/uL (130-400); Platelet Morphology Comment Appears Adequate; RBC Distribution Width 18.8 % (11.5-14.5); Red Blood Cell (RBC) Count 2.65 mill/uL (4.20-5.40); White Blood Cell (WBC) Count 12.6 thou/uL (4.8-10.8)
[2021-05-25 05:43] LABS: ALT (SGPT) 8 U/L (8-55); AST (SGOT) 10 U/L (5-34); Albumin 2.2 g/dL (3.5-5.0); Alkaline Phosphatase 266 U/L (40-110); Anion Gap 14 mmol/L (10-20); BUN (Urea Nitrogen) 50 mg/dL (7.0-18.7); Bilirubin, Total Less than 0.2 mg/dL (0.2-1.2); Calc. Creatinine Clearance 27 mL/min (70-130); Calcium 8.2 mg/dL (7.8-10.44); Carbon Dioxide 20 mmol/L (22-29); Chloride 112 mmol/L (98-107); Globulin 2.3 g/dL (2.4-3.5); Glucose 106 mg/dL (70-105); Potassium 3.8 mmol/L (3.5-5.1); Protein, Total 4.5 g/dL (6.0-8.3); Sodium 142 mmol/L (136-145)
[2021-05-25] MEDS ORDERED: Dulaglutide [Trulicity] 0.75 MG/0.5 ML Pen.Injctr SC SCH (09:00)
[2021-05-25] MEDS ORDERED: Heparin 10,000 UNITS/ 10 ML VIAL ONE ×2 (09:14→12:56)
[2021-05-25] MEDS: Diltiazem HCl CD 300 mg Capsule PO SCH (09:49)
[2021-05-25] MEDS: hydrALAZINE 25 MG TAB PO SCH ×3 (09:50→21:30)
[2021-05-25] MEDS: Gabapentin 300 MG CAP PO SCH (09:50)
[2021-05-25] MEDS: Carvedilol 25 MG TAB PO SCH ×2 (09:50→21:30)
[2021-05-25] MEDS: Acyclovir 400 mg Tablet PO SCH ×2 (09:50→21:27)
[2021-05-25] MEDS: NIFEdipine XL 60 MG TAB PO SCH (09:50)
[2021-05-25] MEDS: Heparin 5,000 UNITS/ML VIAL SC SCH ×3 (09:51→21:31)
[2021-05-25] MEDS: Potassium Chloride 20 MEQ TAB PO SCH ×2 (09:51→21:30)
[2021-05-25] MEDS: Calcium Carbonate 500 MG ChewTAB PO SCH ×2 (09:51→22:25)
[2021-05-25] MEDS ORDERED: Fentanyl 100 MCG/2 ML VIAL ONE (12:50)
[2021-05-25] MEDS ORDERED: Lidocaine 1% w/Epinephrine 1:100K 20 ML VIAL ONE (12:56)
[2021-05-25] MEDS ORDERED: Sodium Chloride 0.9% 20 ML ONE (12:56)
[2021-05-25] MEDS ORDERED: Bupivacaine PF 0.5% 30 ML VIAL ONE (12:56)
[2021-05-25] MEDS ORDERED: PROPOFOL 200 MG/20 ML VIAL ONE (13:12)
[2021-05-25] MEDS ORDERED: Ondansetron PF 4 MG/2 ML Vial ONE (13:12)
[2021-05-25] MEDS: HYDROcodone/Acetaminophen 5/325 mg Tablet PO PRN ×2 (16:00→21:29)
[2021-05-25 19:15] LABS: Vancomycin, Random 24.9 ug/mL (See Comment)
[2021-05-25] MEDS: Atorvastatin Calcium 20 MG TAB PO SCH (21:28)
[2021-05-26 04:45] LABS: #Eosinphils 0.1 thou/uL (0.0-0.7); #Lymphocytes 1.2 thou/uL (1.20-3.40); #Monocytes 0.8 thou/uL (0.11-0.59); %Basophils 0.1 % (0.0-1.0); %Eosinophils 0.5 % (0.0-10.0); %Lymphocytes 7.9 % (21.0-51.0); %Monocytes 5.4 % (0.0-10.0); %Neutrophils 86.2 % (42.0-75.0); Hemoglobin 7.5 g/dL (12.0-16.0); Mean Corpuscular HGB CONC 32.2 g/dL (32.0-36.0); Mean Corpuscular Hemoglobin 27.8 pg (27.0-31.0); Mean Corpuscular Volume 86.3 fL (78.0-98.0); Mean Platelet Volume 9.1 fL (7.4-10.4); Platelet Count 230 thou/uL (130-400); RBC Distribution Width 19.1 % (11.5-14.5); Red Blood Cell (RBC) Count 2.71 mill/uL (4.20-5.40); White Blood Cell (WBC) Count 15.1 thou/uL (4.8-10.8)
[2021-05-26 05:04] LABS: ALT (SGPT) Less than 7 U/L (8-55); AST (SGOT) 10 U/L (5-34); Albumin 2.2 g/dL (3.5-5.0); Alkaline Phosphatase 121 U/L (40-110); Anion Gap 13 mmol/L (10-20); BUN (Urea Nitrogen) 48 mg/dL (7.0-18.7); Bilirubin, Total Less than 0.2 mg/dL (0.2-1.2); Calc. Creatinine Clearance 28 mL/min (70-130); Calcium 8.1 mg/dL (7.8-10.44); Carbon Dioxide 21 mmol/L (22-29); Chloride 112 mmol/L (98-107); Globulin 2.3 g/dL (2.4-3.5); Glucose 122 mg/dL (70-105); Potassium 4.1 mmol/L (3.5-5.1); Protein, Total 4.5 g/dL (6.0-8.3); Sodium 142 mmol/L (136-145)
[2021-05-26] MEDS: Acyclovir 400 mg Tablet PO SCH ×2 (09:12→21:19)
[2021-05-26] MEDS: NIFEdipine XL 60 MG TAB PO SCH (09:12)
[2021-05-26] MEDS: hydrALAZINE 25 MG TAB PO SCH ×3 (09:13→21:18)
[2021-05-26] MEDS: Gabapentin 300 MG CAP PO SCH (09:13)
[2021-05-26] MEDS: Diltiazem HCl CD 300 mg Capsule PO SCH (09:13)
[2021-05-26] MEDS: Carvedilol 25 MG TAB PO SCH ×2 (09:13→21:18)
[2021-05-26] MEDS: Potassium Chloride 20 MEQ TAB PO SCH ×3 (09:13→21:17)
[2021-05-26] MEDS: Calcium Carbonate 500 MG ChewTAB PO SCH ×2 (09:14→21:17)
[2021-05-26] MEDS: Heparin 5,000 UNITS/ML VIAL SC SCH ×3 (09:14→21:19)
[2021-05-26] MEDS ORDERED: Heparin 5,000 UNITS/ML VIAL ONE ×2 (12:17→17:03)
[2021-05-26] MEDS ORDERED: Bupivacaine 0.25% HCL 30 ML VIAL ONE (12:17)
[2021-05-26] MEDS ORDERED: Lidocaine 1% w/Epinephrine 1:100K 20 ML VIAL ONE (12:17)
[2021-05-26] MEDS ORDERED: Protamine Sulfate 50 MG/5 ML VIAL ONE (12:17)
[2021-05-26] MEDS ORDERED: Fentanyl 100 MCG/2 ML VIAL ONE (12:27)
[2021-05-26] MEDS ORDERED: Ketamine 50 MG/ML (10ML VIAL) ONE (12:27)
[2021-05-26] MEDS ORDERED: PHENYLEPHRINE-NS 100 MCG/ML 10 ML SYRINGE ONE ×2 (12:49)
[2021-05-26] MEDS ORDERED: PROPOFOL 200 MG/20 ML VIAL ONE (12:49)
[2021-05-26] MEDS ORDERED: Glycopyrrolate 0.2 MG/ML 5 ML SYRINGE ONE (12:49)
[2021-05-26] MEDS ORDERED: Rocuronium Bromide 10 MG/ML (10ML VIAL) ONE (12:49)
[2021-05-26] MEDS ORDERED: Dexamethasone 20 MG/5 ML VIAL ONE (12:49)
[2021-05-26] MEDS ORDERED: diphenhydrAMINE 50 MG/ML VIAL ONE (12:49)
[2021-05-26] MEDS ORDERED: Albuterol Sulfate HFA (OR ONLY) ONE (12:49)
[2021-05-26] MEDS ORDERED: Lidocaine 1% PF 5 ML VIAL ONE (12:49)
[2021-05-26] MEDS ORDERED: ePHEDrine 50 MG/ML VIAL ONE (12:49)
[2021-05-26] MEDS ORDERED: Ondansetron HCl/PF 4 MG/2 ML Vial IVP PRN (13:21)
[2021-05-26] MEDS ORDERED: Promethazine HCl 25 MG/ML VIAL IVPB PRN (13:21)
[2021-05-26] MEDS ORDERED: Promethazine HCl 25 MG/ML VIAL IM PRN (13:21)
[2021-05-26] MEDS ORDERED: Sterile Water 10 ML VIAL IVP SCH (15:00)
[2021-05-26] MEDS ORDERED: Activase 2 MG VIAL CATH SCH (15:00)
[2021-05-26] MEDS: Atorvastatin Calcium 20 MG TAB PO SCH (21:18)
[2021-05-26] MEDS: HYDROcodone/Acetaminophen 5/325 mg Tablet PO PRN (22:09)
[2021-05-27] MEDS: Vancomycin HCl 50 MG, Sodium Chloride 0.9% 10 ML in Syringe 1 ML CATH PRN (01:54)
[2021-05-27 05:09] LABS: #Lymphocytes 0.7 thou/uL (1.20-3.40); #Monocytes 0.8 thou/uL (0.11-0.59); #Neutrophils 16.1 thou/uL (1.40-6.50); %Eosinophils 0.2 % (0.0-10.0); %Lymphocytes 4.1 % (21.0-51.0); %Monocytes 4.5 % (0.0-10.0); %Neutrophils 91.3 % (42.0-75.0); Hemoglobin 8.4 g/dL (12.0-16.0); Mean Corpuscular HGB CONC 31.2 g/dL (32.0-36.0); Mean Corpuscular Hemoglobin 27.1 pg (27.0-31.0); Mean Corpuscular Volume 86.8 fL (78.0-98.0); Mean Platelet Volume 9.2 fL (7.4-10.4); Platelet Count 247 thou/uL (130-400); RBC Distribution Width 19.2 % (11.5-14.5); White Blood Cell (WBC) Count 17.7 thou/uL (4.8-10.8)
[2021-05-27 05:32] LABS: ALT (SGPT) Less than 7 U/L (8-55); AST (SGOT) 12 U/L (5-34); Albumin 2.1 g/dL (3.5-5.0); Alkaline Phosphatase 138 U/L (40-110); Anion Gap 18 mmol/L (10-20); BUN (Urea Nitrogen) 49 mg/dL (7.0-18.7); Bilirubin, Total Less than 0.2 mg/dL (0.2-1.2); Calc. Creatinine Clearance 26 mL/min (70-130); Calcium 8.3 mg/dL (7.8-10.44); Carbon Dioxide 17 mmol/L (22-29); Chloride 110 mmol/L (98-107); Globulin 2.6 g/dL (2.4-3.5); Glucose 180 mg/dL (70-105); Potassium 4.5 mmol/L (3.5-5.1); Protein, Total 4.7 g/dL (6.0-8.3); Sodium 140 mmol/L (136-145)
[2021-05-27] MEDS: Calcium Carbonate 500 MG ChewTAB PO SCH ×3 (06:12→21:07)
[2021-05-27] MEDS: HumaLOG 300 UNITS/3 ML VIAL SC PRN (06:13)
[2021-05-27] MEDS ORDERED: Heparin 10,000 UNITS/ 10 ML VIAL ONE (09:17)
[2021-05-27] MEDS: Carvedilol 25 MG TAB PO SCH ×2 (09:40→21:08)
[2021-05-27] MEDS: Diltiazem HCl CD 300 mg Capsule PO SCH (09:40)
[2021-05-27] MEDS: Potassium Chloride 20 MEQ TAB PO SCH ×3 (09:40→21:09)
[2021-05-27] MEDS: Heparin 5,000 UNITS/ML VIAL SC SCH ×4 (09:41→21:09)
[2021-05-27] MEDS: Acyclovir 400 mg Tablet PO SCH ×2 (09:41→21:08)
[2021-05-27] MEDS: Gabapentin 300 MG CAP PO SCH (09:41)
[2021-05-27] MEDS: hydrALAZINE 25 MG TAB PO SCH ×5 (09:41→21:08)
[2021-05-27] MEDS: Ondansetron ODT 4 MG TAB PO PRN ×2 (09:41→15:28)
[2021-05-27] MEDS ORDERED: Acetaminophen 325 MG TAB PO SCH (10:15)
[2021-05-27] MEDS: Atorvastatin Calcium 20 MG TAB PO SCH (21:08)
[2021-05-27] MEDS: HYDROcodone/Acetaminophen 5/325 mg Tablet PO PRN (23:16)
[2021-05-28 04:53] LABS: #Eosinphils 0.1 thou/uL (0.0-0.7); #Lymphocytes 1.1 thou/uL (1.20-3.40); #Neutrophils 13.8 thou/uL (1.40-6.50); %Basophils 0.2 % (0.0-1.0); %Eosinophils 0.4 % (0.0-10.0); %Lymphocytes 6.8 % (21.0-51.0); %Monocytes 6.5 % (0.0-10.0); %Neutrophils 86.2 % (42.0-75.0); Hemoglobin 7.2 g/dL (12.0-16.0); Mean Corpuscular HGB CONC 31.6 g/dL (32.0-36.0); Mean Corpuscular Hemoglobin 27.2 pg (27.0-31.0); Mean Corpuscular Volume 86.2 fL (78.0-98.0); Mean Platelet Volume 8.8 fL (7.4-10.4); Platelet Count 215 thou/uL (130-400); RBC Distribution Width 19.5 % (11.5-14.5); Red Blood Cell (RBC) Count 2.65 mill/uL (4.20-5.40)
[2021-05-28 05:15] LABS: ALT (SGPT) Less than 7 U/L (8-55); AST (SGOT) 11 U/L (5-34); Albumin 2.2 g/dL (3.5-5.0); Alkaline Phosphatase 121 U/L (40-110); Anion Gap 13 mmol/L (10-20); BUN (Urea Nitrogen) 46 mg/dL (7.0-18.7); Bilirubin, Total Less than 0.2 mg/dL (0.2-1.2); Calc. Creatinine Clearance 28 mL/min (70-130); Calcium 8.2 mg/dL (7.8-10.44); Carbon Dioxide 23 mmol/L (22-29); Chloride 107 mmol/L (98-107); Globulin 2.4 g/dL (2.4-3.5); Glucose 178 mg/dL (70-105); Protein, Total 4.6 g/dL (6.0-8.3); Sodium 139 mmol/L (136-145)
[2021-05-28] MEDS: HumaLOG 300 UNITS/3 ML VIAL SC PRN ×3 (06:21→18:21)
[2021-05-28] MEDS ORDERED: Lantus 1000 UNITS/10 ML VIAL SC SCH (09:30)
[2021-05-28] MEDS: Acyclovir 400 mg Tablet PO SCH ×2 (10:14→20:55)
[2021-05-28] MEDS: Carvedilol 25 MG TAB PO SCH ×2 (10:15→20:55)
[2021-05-28] MEDS: HYDROcodone/Acetaminophen 5/325 mg Tablet PO PRN (10:15)
[2021-05-28] MEDS: Gabapentin 300 MG CAP PO SCH (10:15)
[2021-05-28] MEDS: hydrALAZINE 25 MG TAB PO SCH ×2 (10:16→20:55)
[2021-05-28] MEDS: Heparin 5,000 UNITS/ML VIAL SC SCH (10:17)
[2021-05-28] MEDS: EPOETIN ALFA-EPBX (ESRD) 10,000 UNIT/ML VIAL SC SCH (10:19)
[2021-05-28] MEDS ORDERED: Acetaminophen 325 MG TAB PO PRN (10:22)
[2021-05-28] MEDS ORDERED: HYDROcodone/Acetaminophen 5/325 mg Tablet PO PRN (10:23)
[2021-05-28] MEDS: Calcium Carbonate 500 MG ChewTAB PO SCH ×2 (10:31→20:58)
[2021-05-28] MEDS ORDERED: Simethicone Chewable 80 MG TAB PO PRN (11:54)
[2021-05-28] MEDS ORDERED: Simethicone Chewable 80 MG TAB PO SCH (12:30)
[2021-05-28] MEDS: Atorvastatin Calcium 20 MG TAB PO SCH (20:55)
[2021-05-28] MEDS: Apixaban 2.5 MG TAB PO SCH (20:55)
[2021-05-28] MEDS: Ondansetron ODT 4 MG TAB PO PRN (23:01)
[2021-05-29 04:38] LABS: #Eosinphils 0.1 thou/uL (0.0-0.7); #Monocytes 1.2 thou/uL (0.11-0.59); #Neutrophils 11.8 thou/uL (1.40-6.50); %Basophils 0.1 % (0.0-1.0); %Eosinophils 0.5 % (0.0-10.0); %Lymphocytes 7.2 % (21.0-51.0); %Monocytes 8.8 % (0.0-10.0); %Neutrophils 83.4 % (42.0-75.0); Hemoglobin 7.5 g/dL (12.0-16.0); Mean Corpuscular HGB CONC 31.4 g/dL (32.0-36.0); Mean Corpuscular Hemoglobin 27.1 pg (27.0-31.0); Mean Corpuscular Volume 86.2 fL (78.0-98.0); Mean Platelet Volume 9.1 fL (7.4-10.4); Platelet Count 179 thou/uL (130-400); RBC Distribution Width 19.4 % (11.5-14.5); Red Blood Cell (RBC) Count 2.77 mill/uL (4.20-5.40); White Blood Cell (WBC) Count 14.1 thou/uL (4.8-10.8)
[2021-05-29 05:25] LABS: ALT (SGPT) Less than 7 U/L (8-55); AST (SGOT) 11 U/L (5-34); Albumin 2.3 g/dL (3.5-5.0); Alkaline Phosphatase 124 U/L (40-110); Anion Gap 14 mmol/L (10-20); BUN (Urea Nitrogen) 48 mg/dL (7.0-18.7); Bilirubin, Total Less than 0.2 mg/dL (0.2-1.2); Calc. Creatinine Clearance 25 mL/min (70-130); Calcium 8.3 mg/dL (7.8-10.44); Carbon Dioxide 22 mmol/L (22-29); Chloride 109 mmol/L (98-107); Globulin 2.5 g/dL (2.4-3.5); Glucose 160 mg/dL (70-105); Potassium 3.8 mmol/L (3.5-5.1); Protein, Total 4.8 g/dL (6.0-8.3); Sodium 141 mmol/L (136-145)
[2021-05-29] MEDS: guaiFENesin ER 600 MG TAB PO SCH ×2 (08:04→22:10)
[2021-05-29] MEDS ORDERED: Lantus 1000 UNITS/10 ML VIAL SC SCH (09:00)
[2021-05-29] MEDS ORDERED: Heparin 10,000 UNITS/ 10 ML VIAL ONE (09:28)
[2021-05-29 10:01] LABS: Bilirubin Negative (Negative); Blood, Urine 1+ (Negative); Clarity Turbid (Clear); Glucose, Urine (Dipstick) 50 mg/dL (Negative); Ketone, Urine Negative (Negative); Leukocyte 75 Leu/uL (Negative); Nitrite Negative (Negative); Protein, Urine (Dipstick) 300 mg/dL (Neg-Trace); Specific Gravity, Urine 1.009 (1.002-1.036); Urobilinogen Normal mg/dL (Less than 2); WBC/HPF 21-50 HPF (0-3); pH, Urine 6.5 (5.0-9.0)
[2021-05-29 10:02] LABS: Bacteria/HPF 1+ HPF (None Seen); Urine Culture Reflex No No
[2021-05-29] MEDS ORDERED: Iopamidol-370 76% 500 ML 1 ML ONE (10:52)
[2021-05-29] MEDS: hydrALAZINE 25 MG TAB PO SCH ×2 (11:08→22:10)
[2021-05-29] MEDS: Carvedilol 25 MG TAB PO SCH ×2 (11:16→22:10)
[2021-05-29] MEDS ORDERED: hydrALAZINE 20 MG/ML VIAL SLOW IVP SCH (13:00)
[2021-05-29] MEDS: Acyclovir 400 mg Tablet PO SCH ×2 (13:55→22:13)
[2021-05-29] MEDS: Simethicone Chewable 80 MG TAB PO SCH ×3 (13:56→22:10)
[2021-05-29] MEDS: Apixaban 2.5 MG TAB PO SCH ×2 (13:56→22:11)
[2021-05-29] MEDS: Gabapentin 300 MG CAP PO SCH (13:56)
[2021-05-29] MEDS: Calcium Carbonate 500 MG ChewTAB PO SCH ×2 (14:06→22:17)
[2021-05-29] MEDS: Vancomycin HCl 50 MG, Sodium Chloride 0.9% 10 ML in Syringe 1 ML CATH PRN (14:08)
[2021-05-29] MEDS: Morphine 2 MG/ML VIAL SLOW IVP PRN (18:28)
[2021-05-29] MEDS: Atorvastatin Calcium 20 MG TAB PO SCH (22:10)
[2021-05-30] MEDS: Morphine 2 MG/ML VIAL SLOW IVP PRN ×3 (01:09→23:38)
[2021-05-30 04:52] LABS: #Eosinphils 0.1 thou/uL (0.0-0.7); #Lymphocytes 1.2 thou/uL (1.20-3.40); #Monocytes 1.3 thou/uL (0.11-0.59); #Neutrophils 10.2 thou/uL (1.40-6.50); %Basophils 0.1 % (0.0-1.0); %Eosinophils 0.8 % (0.0-10.0); %Lymphocytes 9.2 % (21.0-51.0); %Monocytes 10.4 % (0.0-10.0); %Neutrophils 79.6 % (42.0-75.0); Hemoglobin 7.5 g/dL (12.0-16.0); Mean Corpuscular HGB CONC 31.6 g/dL (32.0-36.0); Mean Corpuscular Hemoglobin 27.1 pg (27.0-31.0); Mean Corpuscular Volume 85.8 fL (78.0-98.0); Platelet Count 155 thou/uL (130-400); RBC Distribution Width 19.5 % (11.5-14.5); Red Blood Cell (RBC) Count 2.75 mill/uL (4.20-5.40); White Blood Cell (WBC) Count 12.8 thou/uL (4.8-10.8)
[2021-05-30 05:10] LABS: ALT (SGPT) Less than 7 U/L (8-55); AST (SGOT) 15 U/L (5-34); Albumin 2.1 g/dL (3.5-5.0); Alkaline Phosphatase 104 U/L (40-110); Anion Gap 10 mmol/L (10-20); BUN (Urea Nitrogen) 30 mg/dL (7.0-18.7); Bilirubin, Total Less than 0.2 mg/dL (0.2-1.2); Calc. Creatinine Clearance 32 mL/min (70-130); Calcium 8.1 mg/dL (7.8-10.44); Carbon Dioxide 27 mmol/L (22-29); Chloride 107 mmol/L (98-107); Globulin 2.5 g/dL (2.4-3.5); Glucose 107 mg/dL (70-105); Potassium 3.3 mmol/L (3.5-5.1); Protein, Total 4.6 g/dL (6.0-8.3); Sodium 141 mmol/L (136-145)
[2021-05-30 07:32] LABS: Magnesium 1.7 mg/dL (1.6-2.6)
[2021-05-30] MEDS ORDERED: Potassium Chloride 20 MEQ TAB PO SCH (08:00)
[2021-05-30] MEDS: Carvedilol 25 MG TAB PO SCH ×2 (09:34→21:07)
[2021-05-30] MEDS: hydrALAZINE 25 MG TAB PO SCH ×2 (09:34→21:06)
[2021-05-30] MEDS: Acyclovir 400 mg Tablet PO SCH ×2 (09:34→21:07)
[2021-05-30] MEDS: Apixaban 2.5 MG TAB PO SCH ×2 (09:35→21:06)
[2021-05-30] MEDS: Simethicone Chewable 80 MG TAB PO SCH ×4 (09:35→23:41)
[2021-05-30] MEDS: Gabapentin 300 MG CAP PO SCH (09:35)
[2021-05-30] MEDS: guaiFENesin ER 600 MG TAB PO SCH ×2 (09:35→21:06)
[2021-05-30] MEDS: Calcium Carbonate 500 MG ChewTAB PO SCH ×2 (09:44→21:16)
[2021-05-30] MEDS: Morphine 4 MG/ML VIAL SLOW IVP PRN (11:47)
[2021-05-30] MEDS: Atorvastatin Calcium 20 MG TAB PO SCH (21:07)
[2021-05-31 05:00] LABS: #Eosinphils 0.1 thou/uL (0.0-0.7); #Lymphocytes 1.3 thou/uL (1.20-3.40); #Monocytes 1.4 thou/uL (0.11-0.59); #Neutrophils 10.7 thou/uL (1.40-6.50); %Basophils 0.1 % (0.0-1.0); %Eosinophils 0.6 % (0.0-10.0); %Lymphocytes 9.8 % (21.0-51.0); %Monocytes 10.1 % (0.0-10.0); %Neutrophils 79.4 % (42.0-75.0); Hemoglobin 8.1 g/dL (12.0-16.0); Mean Corpuscular HGB CONC 31.6 g/dL (32.0-36.0); Mean Corpuscular Hemoglobin 27.3 pg (27.0-31.0); Mean Corpuscular Volume 86.4 fL (78.0-98.0); Platelet Count 164 thou/uL (130-400); RBC Distribution Width 19.6 % (11.5-14.5); Red Blood Cell (RBC) Count 2.98 mill/uL (4.20-5.40); White Blood Cell (WBC) Count 13.4 thou/uL (4.8-10.8)
[2021-05-31 05:22] LABS: ALT (SGPT) Less than 7 U/L (8-55); AST (SGOT) 12 U/L (5-34); Albumin 2.2 g/dL (3.5-5.0); Alkaline Phosphatase 110 U/L (40-110); Anion Gap 12 mmol/L (10-20); BUN (Urea Nitrogen) 28 mg/dL (7.0-18.7); Bilirubin, Total 0.2 mg/dL (0.2-1.2); Calc. Creatinine Clearance 29 mL/min (70-130); Calcium 8.4 mg/dL (7.8-10.44); Carbon Dioxide 26 mmol/L (22-29); Chloride 108 mmol/L (98-107); Globulin 2.7 g/dL (2.4-3.5); Glucose 125 mg/dL (70-105); Potassium 3.6 mmol/L (3.5-5.1); Protein, Total 4.9 g/dL (6.0-8.3); Sodium 142 mmol/L (136-145)
[2021-05-31] MEDS: Carvedilol 25 MG TAB PO SCH ×2 (08:27→21:20)
[2021-05-31] MEDS: guaiFENesin ER 600 MG TAB PO SCH ×2 (08:28→21:20)
[2021-05-31] MEDS: Simethicone Chewable 80 MG TAB PO SCH ×4 (08:28→23:21)
[2021-05-31] MEDS: Calcium Carbonate 500 MG ChewTAB PO SCH ×2 (08:28→21:20)
[2021-05-31] MEDS: hydrALAZINE 25 MG TAB PO SCH ×2 (08:28→21:21)
[2021-05-31] MEDS: Apixaban 2.5 MG TAB PO SCH ×2 (08:28→21:21)
[2021-05-31] MEDS: Gabapentin 300 MG CAP PO SCH (08:29)
[2021-05-31] MEDS: Acyclovir 400 mg Tablet PO SCH ×2 (08:33→21:20)
[2021-05-31] MEDS: Morphine 2 MG/ML VIAL SLOW IVP PRN (08:34)
[2021-05-31] MEDS ORDERED: Heparin 10,000 UNITS/ 10 ML VIAL ONE (08:38)
[2021-05-31] MEDS: Ondansetron ODT 4 MG TAB PO SCH ×2 (13:56→21:21)
[2021-05-31] MEDS: Morphine 4 MG/ML VIAL SLOW IVP PRN ×2 (16:46→22:12)
[2021-05-31] MEDS: Atorvastatin Calcium 20 MG TAB PO SCH (21:21)
[2021-06-01] MEDS: Morphine 4 MG/ML VIAL SLOW IVP PRN ×4 (02:49→18:37)
[2021-06-01] MEDS: Ondansetron ODT 4 MG TAB PO SCH ×4 (02:49→22:24)
[2021-06-01 05:18] LABS: #Eosinphils 0.1 thou/uL (0.0-0.7); #Lymphocytes 1.4 thou/uL (1.20-3.40); #Monocytes 1.2 thou/uL (0.11-0.59); #Neutrophils 7.1 thou/uL (1.40-6.50); %Basophils 0.3 % (0.0-1.0); %Eosinophils 0.8 % (0.0-10.0); %Lymphocytes 14.4 % (21.0-51.0); %Monocytes 12.4 % (0.0-10.0); %Neutrophils 72.2 % (42.0-75.0); Mean Corpuscular Volume 87.4 fL (78.0-98.0); Platelet Count 133 thou/uL (130-400); RBC Distribution Width 19.2 % (11.5-14.5); Red Blood Cell (RBC) Count 2.52 mill/uL (4.20-5.40); White Blood Cell (WBC) Count 9.9 thou/uL (4.8-10.8)
[2021-06-01 05:46] LABS: ALT (SGPT) Less than 7 U/L (8-55); AST (SGOT) 9 U/L (5-34); Alkaline Phosphatase 89 U/L (40-110); Anion Gap 9 mmol/L (10-20); BUN (Urea Nitrogen) 18 mg/dL (7.0-18.7); Bilirubin, Total Less than 0.2 mg/dL (0.2-1.2); Calc. Creatinine Clearance 34 mL/min (70-130); Calcium 7.8 mg/dL (7.8-10.44); Carbon Dioxide 29 mmol/L (22-29); Chloride 103 mmol/L (98-107); Globulin 2.3 g/dL (2.4-3.5); Glucose 133 mg/dL (70-105); Potassium 3.6 mmol/L (3.5-5.1); Protein, Total 4.3 g/dL (6.0-8.3); Sodium 137 mmol/L (136-145)
[2021-06-01] MEDS: Gabapentin 300 MG CAP PO SCH (09:33)
[2021-06-01] MEDS: Calcium Carbonate 500 MG ChewTAB PO SCH ×2 (09:33→22:19)
[2021-06-01] MEDS: Simethicone Chewable 80 MG TAB PO SCH ×4 (09:33→22:17)
[2021-06-01] MEDS: Apixaban 2.5 MG TAB PO SCH ×2 (09:33→22:18)
[2021-06-01] MEDS: hydrALAZINE 25 MG TAB PO SCH ×2 (09:33→22:19)
[2021-06-01] MEDS: guaiFENesin ER 600 MG TAB PO SCH ×2 (09:33→22:18)
[2021-06-01] MEDS: Carvedilol 25 MG TAB PO SCH ×2 (09:34→22:19)
[2021-06-01] MEDS: Acyclovir 400 mg Tablet PO SCH ×2 (09:37→22:20)
[2021-06-01] MEDS: Atorvastatin Calcium 20 MG TAB PO SCH (22:18)
[2021-06-02] MEDS: Ondansetron ODT 4 MG TAB PO SCH ×5 (02:05→20:31)
[2021-06-02] MEDS: Morphine 4 MG/ML VIAL SLOW IVP PRN ×2 (03:04→08:36)
[2021-06-02] MEDS: HumaLOG 300 UNITS/3 ML VIAL SC PRN (06:17)
[2021-06-02 06:53] LABS: #Eosinphils 0.1 thou/uL (0.0-0.7); #Lymphocytes 1.4 thou/uL (1.20-3.40); #Monocytes 1.1 thou/uL (0.11-0.59); #Neutrophils 6.8 thou/uL (1.40-6.50); %Eosinophils 0.9 % (0.0-10.0); %Lymphocytes 14.6 % (21.0-51.0); %Monocytes 11.3 % (0.0-10.0); %Neutrophils 73.2 % (42.0-75.0); Hemoglobin 6.9 g/dL (12.0-16.0); Mean Corpuscular HGB CONC 31.9 g/dL (32.0-36.0); Mean Corpuscular Hemoglobin 27.8 pg (27.0-31.0); Mean Corpuscular Volume 87.3 fL (78.0-98.0); Mean Platelet Volume 10.5 fL (7.4-10.4); Platelet Count 148 thou/uL (130-400); RBC Distribution Width 19.6 % (11.5-14.5); Red Blood Cell (RBC) Count 2.49 mill/uL (4.20-5.40); White Blood Cell (WBC) Count 9.3 thou/uL (4.8-10.8)
[2021-06-02 06:56] LABS: ALT (SGPT) Less than 7 U/L (8-55); AST (SGOT) 11 U/L (5-34); Alkaline Phosphatase 88 U/L (40-110); Anion Gap 10 mmol/L (10-20); BUN (Urea Nitrogen) 20 mg/dL (7.0-18.7); Bilirubin, Total Less than 0.2 mg/dL (0.2-1.2); Calc. Creatinine Clearance 29 mL/min (70-130); Calcium 8.1 mg/dL (7.8-10.44); Carbon Dioxide 28 mmol/L (22-29); Chloride 103 mmol/L (98-107); Globulin 2.6 g/dL (2.4-3.5); Glucose 164 mg/dL (70-105); Potassium 3.9 mmol/L (3.5-5.1); Protein, Total 4.6 g/dL (6.0-8.3); Sodium 137 mmol/L (136-145)
[2021-06-02] MEDS: Apixaban 2.5 MG TAB PO SCH ×2 (08:34→20:27)
[2021-06-02] MEDS: Simethicone Chewable 80 MG TAB PO SCH ×4 (08:34→20:31)
[2021-06-02] MEDS: guaiFENesin ER 600 MG TAB PO SCH ×2 (08:35→20:25)
[2021-06-02] MEDS: Gabapentin 300 MG CAP PO SCH (08:35)
[2021-06-02] MEDS: Calcium Carbonate 500 MG ChewTAB PO SCH ×2 (08:35→20:23)
[2021-06-02] MEDS: Carvedilol 25 MG TAB PO SCH ×2 (08:35→20:25)
[2021-06-02] MEDS: hydrALAZINE 25 MG TAB PO SCH ×2 (08:35→20:25)
[2021-06-02] MEDS: Acyclovir 400 mg Tablet PO SCH ×2 (08:45→20:25)
[2021-06-02] MEDS ORDERED: Heparin 10,000 UNITS/ 10 ML VIAL ONE (09:07)
[2021-06-02 14:53] LABS: Hemoglobin 8.1 g/dL (12.0-16.0)
[2021-06-02] MEDS: Morphine 2 MG/ML VIAL SLOW IVP PRN (18:06)
[2021-06-02] MEDS: Atorvastatin Calcium 20 MG TAB PO SCH (20:25)
[2021-06-03] MEDS: Ondansetron ODT 4 MG TAB PO SCH ×4 (02:27→22:30)
[2021-06-03] MEDS: Morphine 2 MG/ML VIAL SLOW IVP PRN (02:28)
[2021-06-03 03:14] LABS: #Basophils 0.1 thou/uL (0.0-0.2); #Eosinphils 0.2 thou/uL (0.0-0.7); #Lymphocytes 1.5 thou/uL (1.20-3.40); %Basophils 0.5 % (0.0-1.0); %Eosinophils 1.6 % (0.0-10.0); %Lymphocytes 15.2 % (21.0-51.0); %Monocytes 10.6 % (0.0-10.0); %Neutrophils 72.1 % (42.0-75.0); Hemoglobin 8.1 g/dL (12.0-16.0); Mean Corpuscular HGB CONC 32.4 g/dL (32.0-36.0); Mean Corpuscular Hemoglobin 28.8 pg (27.0-31.0); Mean Corpuscular Volume 88.9 fL (78.0-98.0); Mean Platelet Volume 10.4 fL (7.4-10.4); Platelet Count 149 thou/uL (130-400); RBC Distribution Width 18.4 % (11.5-14.5); Red Blood Cell (RBC) Count 2.82 mill/uL (4.20-5.40); White Blood Cell (WBC) Count 9.7 thou/uL (4.8-10.8)
[2021-06-03 03:37] LABS: ALT (SGPT) Less than 7 U/L (8-55); AST (SGOT) 12 U/L (5-34); Alkaline Phosphatase 92 U/L (40-110); Anion Gap 7 mmol/L (10-20); BUN (Urea Nitrogen) 13 mg/dL (7.0-18.7); Bilirubin, Total Less than 0.2 mg/dL (0.2-1.2); Calc. Creatinine Clearance 35 mL/min (70-130); Calcium 8.2 mg/dL (7.8-10.44); Carbon Dioxide 31 mmol/L (22-29); Chloride 102 mmol/L (98-107); Globulin 2.7 g/dL (2.4-3.5); Glucose 165 mg/dL (70-105); Magnesium 1.6 mg/dL (1.6-2.6); Potassium 3.8 mmol/L (3.5-5.1); Protein, Total 4.7 g/dL (6.0-8.3); Sodium 136 mmol/L (136-145)
[2021-06-03 03:42] LABS: Phosphorus 3.4 mg/dL (2.3-4.7)
[2021-06-03] MEDS: HumaLOG 300 UNITS/3 ML VIAL SC PRN ×2 (06:05→16:51)
[2021-06-03] MEDS ORDERED: Preparation H Ointment 28 GM TUBE TOP PRN (08:43)
[2021-06-03] MEDS: Acyclovir 400 mg Tablet PO SCH ×2 (09:14→20:13)
[2021-06-03] MEDS: guaiFENesin ER 600 MG TAB PO SCH ×2 (09:15→20:16)
[2021-06-03] MEDS: Simethicone Chewable 80 MG TAB PO SCH ×4 (09:15→23:39)
[2021-06-03] MEDS: Gabapentin 300 MG CAP PO SCH (09:15)
[2021-06-03] MEDS: Apixaban 2.5 MG TAB PO SCH ×2 (09:15→20:15)
[2021-06-03] MEDS: Calcium Carbonate 500 MG ChewTAB PO SCH ×2 (09:15→20:14)
[2021-06-03] MEDS: Carvedilol 25 MG TAB PO SCH ×2 (09:15→20:15)
[2021-06-03] MEDS: hydrALAZINE 25 MG TAB PO SCH ×2 (09:15→20:15)
[2021-06-03] MEDS ORDERED: Preparation H HC 1% Cream 26 GM TUBE TOP PRN (13:30)
[2021-06-03] MEDS: Acetaminophen 325 MG TAB PO PRN (13:34)
[2021-06-03] MEDS: Atorvastatin Calcium 20 MG TAB PO SCH (20:15)
[2021-06-03] MEDS: Melatonin 3 MG TAB PO PRN (20:19)
[2021-06-04] MEDS: Ondansetron ODT 4 MG TAB PO SCH ×4 (05:25→20:32)
[2021-06-04] MEDS: HumaLOG 300 UNITS/3 ML VIAL SC PRN ×2 (05:40→11:44)
[2021-06-04 06:02] LABS: #Eosinphils 0.2 thou/uL (0.0-0.7); #Lymphocytes 1.2 thou/uL (1.20-3.40); #Neutrophils 5.4 thou/uL (1.40-6.50); %Basophils 0.2 % (0.0-1.0); %Eosinophils 2.1 % (0.0-10.0); %Lymphocytes 15.5 % (21.0-51.0); %Monocytes 12.5 % (0.0-10.0); %Neutrophils 69.7 % (42.0-75.0); Hemoglobin 8.2 g/dL (12.0-16.0); Mean Corpuscular HGB CONC 31.4 g/dL (32.0-36.0); Mean Corpuscular Volume 89.3 fL (78.0-98.0); Mean Platelet Volume 10.5 fL (7.4-10.4); Platelet Count 152 thou/uL (130-400); RBC Distribution Width 17.9 % (11.5-14.5); Red Blood Cell (RBC) Count 2.92 mill/uL (4.20-5.40); White Blood Cell (WBC) Count 7.7 thou/uL (4.8-10.8)
[2021-06-04 06:23] LABS: Phosphorus 3.8 mg/dL (2.3-4.7)
[2021-06-04 06:26] LABS: ALT (SGPT) Less than 7 U/L (8-55); AST (SGOT) 11 U/L (5-34); Albumin 2.1 g/dL (3.5-5.0); Alkaline Phosphatase 85 U/L (40-110); Anion Gap 11 mmol/L (10-20); BUN (Urea Nitrogen) 17 mg/dL (7.0-18.7); Bilirubin, Total Less than 0.2 mg/dL (0.2-1.2); Calc. Creatinine Clearance 28 mL/min (70-130); Calcium 8.5 mg/dL (7.8-10.44); Carbon Dioxide 27 mmol/L (22-29); Chloride 101 mmol/L (98-107); Globulin 2.7 g/dL (2.4-3.5); Glucose 152 mg/dL (70-105); Magnesium 1.6 mg/dL (1.6-2.6); Potassium 3.9 mmol/L (3.5-5.1); Protein, Total 4.8 g/dL (6.0-8.3); Sodium 135 mmol/L (136-145)
[2021-06-04] MEDS ORDERED: Heparin 10,000 UNITS/ 10 ML VIAL ONE (09:11)
[2021-06-04] MEDS: guaiFENesin ER 600 MG TAB PO SCH ×2 (09:18→20:33)
[2021-06-04] MEDS: Calcium Carbonate 500 MG ChewTAB PO SCH ×2 (09:18→20:32)
[2021-06-04] MEDS: Simethicone Chewable 80 MG TAB PO SCH ×4 (09:19→20:44)
[2021-06-04] MEDS: Carvedilol 25 MG TAB PO SCH ×2 (09:19→20:33)
[2021-06-04] MEDS: Gabapentin 300 MG CAP PO SCH (09:19)
[2021-06-04] MEDS: hydrALAZINE 25 MG TAB PO SCH ×2 (09:20→20:33)
[2021-06-04] MEDS: Apixaban 2.5 MG TAB PO SCH ×2 (09:20→20:33)
[2021-06-04] MEDS: Acyclovir 400 mg Tablet PO SCH ×2 (09:23→20:32)
[2021-06-04] MEDS: EPOETIN ALFA-EPBX (ESRD) 10,000 UNIT/ML VIAL SC SCH (11:38)
[2021-06-04 15:53] VITALS: BMI 43.4
[2021-06-04] MEDS: Melatonin 3 MG TAB PO PRN (20:32)
[2021-06-04] MEDS: Atorvastatin Calcium 20 MG TAB PO SCH (20:33)
[2021-06-04] MEDS: Acetaminophen 325 MG TAB PO PRN (20:36)
[2021-06-05] MEDS: Ondansetron ODT 4 MG TAB PO SCH ×3 (03:02→15:11)
[2021-06-05 05:47] LABS: #Eosinphils 0.2 thou/uL (0.0-0.7); #Lymphocytes 1.3 thou/uL (1.20-3.40); #Neutrophils 5.3 thou/uL (1.40-6.50); %Basophils 0.5 % (0.0-1.0); %Eosinophils 2.6 % (0.0-10.0); %Lymphocytes 16.2 % (21.0-51.0); %Monocytes 12.9 % (0.0-10.0); %Neutrophils 67.8 % (42.0-75.0); Hemoglobin 7.8 g/dL (12.0-16.0); Mean Corpuscular HGB CONC 30.6 g/dL (32.0-36.0); Mean Corpuscular Hemoglobin 27.2 pg (27.0-31.0); Mean Corpuscular Volume 88.7 fL (78.0-98.0); Mean Platelet Volume 9.8 fL (7.4-10.4); Platelet Count 168 thou/uL (130-400); Red Blood Cell (RBC) Count 2.87 mill/uL (4.20-5.40); White Blood Cell (WBC) Count 7.7 thou/uL (4.8-10.8)
[2021-06-05 06:35] LABS: ALT (SGPT) Less than 7 U/L (8-55); AST (SGOT) 10 U/L (5-34); Albumin 2.1 g/dL (3.5-5.0); Alkaline Phosphatase 88 U/L (40-110); Anion Gap 10 mmol/L (10-20); BUN (Urea Nitrogen) 11 mg/dL (7.0-18.7); Bilirubin, Total 0.2 mg/dL (0.2-1.2); Calc. Creatinine Clearance 34 mL/min (70-130); Calcium 8.6 mg/dL (7.8-10.44); Carbon Dioxide 29 mmol/L (22-29); Chloride 101 mmol/L (98-107); Globulin 2.7 g/dL (2.4-3.5); Glucose 150 mg/dL (70-105); Potassium 3.9 mmol/L (3.5-5.1); Protein, Total 4.8 g/dL (6.0-8.3); Sodium 136 mmol/L (136-145)
[2021-06-05] MEDS: Gabapentin 300 MG CAP PO SCH (08:12)
[2021-06-05] MEDS: Simethicone Chewable 80 MG TAB PO SCH ×2 (08:12→13:43)
[2021-06-05] MEDS: guaiFENesin ER 600 MG TAB PO SCH (08:12)
[2021-06-05] MEDS: Carvedilol 25 MG TAB PO SCH (08:12)
[2021-06-05] MEDS: Apixaban 2.5 MG TAB PO SCH (08:12)
[2021-06-05] MEDS: hydrALAZINE 25 MG TAB PO SCH (08:12)
[2021-06-05] MEDS: Acyclovir 400 mg Tablet PO SCH (08:13)
[2021-06-05] MEDS: Calcium Carbonate 500 MG ChewTAB PO SCH (08:14)
[2021-06-05 12:00] VITALS: TEMP 97.9
[2021-06-05 15:33] VITALS: BP 136/83
== END 2021-06-05 14:50 | disposition home or self-care (01) | DRG 264 ==
LOC: ERS 11:45 → 2NO 15:13
PROVIDERS: ADMIT Family Medicine; ATTEND Family Medicine
PROC: 02H633Z Insertion of Infusion Device into Right Atrium, Percutaneous Approach (ICD-10-PCS; 2021-05-25)
PROC: B5181ZA Fluoroscopy of Superior Vena Cava using Low Osmolar Contrast, Guidance (ICD-10-PCS; 2021-05-25)
PROC: 0JH60XZ Insertion of Tunneled Vascular Access Device into Chest Subcutaneous Tissue and Fascia, Open Approach (ICD-10-PCS; 2021-05-25)
PROC: B548ZZA Ultrasonography of Superior Vena Cava, Guidance (ICD-10-PCS; 2021-05-25)
PROC: 031B0ZF Bypass Right Radial Artery to Lower Arm Vein, Open Approach (ICD-10-PCS; principal; 2021-05-26)
PROC: 0JH63WZ Insertion of Totally Implantable Vascular Access Device into Chest Subcutaneous Tissue and Fascia, Percutaneous Approach (ICD-10-PCS; 2021-05-26)
PROC: 02PY33Z Removal of Infusion Device from Great Vessel, Percutaneous Approach (ICD-10-PCS; 2021-05-26)
PROC: 02HV33Z Insertion of Infusion Device into Superior Vena Cava, Percutaneous Approach (ICD-10-PCS; 2021-05-26)
PROC: 02H633Z Insertion of Infusion Device into Right Atrium, Percutaneous Approach (ICD-10-PCS; 2021-05-26)
PROC: 5A09357 Assistance with Respiratory Ventilation, Less than 24 Consecutive Hours, Continuous Positive Airway Pressure (ICD-10-PCS; 2021-05-26)
PROC: 5A1D70Z Performance of Urinary Filtration, Intermittent, Less than 6 Hours Per Day (ICD-10-PCS; 2021-05-31)
PROC: 30233N1 Transfusion of Nonautologous Red Blood Cells into Peripheral Vein, Percutaneous Approach (ICD-10-PCS; 2021-06-02)
DX: T80.211A Bloodstream infection due to central venous catheter, initial encounter (principal); K85.90 Acute pancreatitis without necrosis or infection, unspecified; J95.821 Acute postprocedural respiratory failure; A41.9 Sepsis, unspecified organism; J18.9 Pneumonia, unspecified organism; N18.6 End stage renal disease; N17.9 Acute kidney failure, unspecified; I13.2 Hypertensive heart and chronic kidney disease with heart failure and with stage 5 chronic kidney disease, or end stage renal disease; I50.32 Chronic diastolic (congestive) heart failure; E87.0 Hyperosmolality and hypernatremia; Z68.41 Body mass index [BMI] 40.0-44.9, adult; I82.611 Acute embolism and thrombosis of superficial veins of right upper extremity; T82.524A Displacement of infusion catheter, initial encounter; E11.22 Type 2 diabetes mellitus with diabetic chronic kidney disease; E87.70 Fluid overload, unspecified; E83.42 Hypomagnesemia; K21.9 Gastro-esophageal reflux disease without esophagitis; D64.9 Anemia, unspecified; I48.0 Paroxysmal atrial fibrillation; E87.6 Hypokalemia; E78.5 Hyperlipidemia, unspecified; E66.01 Morbid (severe) obesity due to excess calories; E88.81 Metabolic syndrome and other insulin resistance; F32.9 Major depressive disorder, single episode, unspecified; C50.912 Malignant neoplasm of unspecified site of left female breast; I89.0 Lymphedema, not elsewhere classified; M54.32 Sciatica, left side; M19.90 Unspecified osteoarthritis, unspecified site; F41.9 Anxiety disorder, unspecified; T88.59XA Other complications of anesthesia, initial encounter; Z85.3 Personal history of malignant neoplasm of breast; Z90.49 Acquired absence of other specified parts of digestive tract; Z90.711 Acquired absence of uterus with remaining cervical stump; Z90.10 Acquired absence of unspecified breast and nipple; Z88.8 Allergy status to other drugs, medicaments and biological substances; Z79.01 Long term (current) use of anticoagulants; Z79.4 Long term (current) use of insulin; Z79.82 Long term (current) use of aspirin; Z79.899 Other long term (current) drug therapy; Z92.21 Personal history of antineoplastic chemotherapy
CPT/HCPCS: 36415; 36416; 36430; 71045; 74018; 74177; 80053; 80069; 80202; 81001; 81003; 81015; 82306; 82553; 82570; 82607; 82728; 82746; 83540; 83550; 83605; 83690; 83735; 83880; 83970; 84100; 84145; 84156; 84443; 84484; 84550; 85025; 86580; 86704; 86705; 86706; 86707; 86803; 86850; 86900; 86901; 87040; 87149; 87340; 87350; 90935; 93005; 93010; 93306; 94660; 94760; 96365; 96367; 96375; C1751; C1752; G0257; J0360; J0690; J0692; J1100; J1200; J1642; J1644; J1815; J1940; J2001; J2270; J2370; J2405; J2704; J2720; J2997; J3010; J3370; J3475; J3490; J7050; P9016; Q0162; Q5105; Q9967; S0020; U0003; U0005

== ENCOUNTER 2021-06-25 08:29 | Outpatient (CLI) | payer BC ==
[2021-06-26 00:23] LABS: SARS-CoV-2 PCR by NAA Not Detected (NotDetected)
== END 2021-06-25 08:30 | disposition home or self-care (01) ==
LOC: LABBT 08:29
PROVIDERS: ATTEND Specialist
DX: Z01.818 Encounter for other preprocedural examination (principal); Z20.822 Contact with and (suspected) exposure to COVID-19
CPT/HCPCS: 93005; 93010; U0003; U0005

== ENCOUNTER 2021-06-29 09:56 | Observation (INO) | payer BC ==
[2021-06-29 10:52] LABS: #Basophils 0.1 thou/uL (0.0-0.2); #Lymphocytes 1.8 thou/uL (1.20-3.40); #Monocytes 0.9 thou/uL (0.11-0.59); #Neutrophils 5.7 thou/uL (1.40-6.50); %Eosinophils 0.5 % (0.0-10.0); %Lymphocytes 21.2 % (21.0-51.0); %Neutrophils 67.2 % (42.0-75.0); Hemoglobin 8.1 g/dL (12.0-16.0); Mean Corpuscular Hemoglobin 27.8 pg (27.0-31.0); Mean Corpuscular Volume 86.9 fL (78.0-98.0); Mean Platelet Volume 9.7 fL (7.4-10.4); Platelet Count 236 thou/uL (130-400); RBC Distribution Width 17.9 % (11.5-14.5); White Blood Cell (WBC) Count 8.4 thou/uL (4.8-10.8)
[2021-06-29 11:06] LABS: Anion Gap 12 mmol/L (10-20); BUN (Urea Nitrogen) 15 mg/dL (7.0-18.7); Calc. Creatinine Clearance 30 mL/min (70-130); Calcium 9.1 mg/dL (7.8-10.44); Carbon Dioxide 31 mmol/L (22-29); Chloride 101 mmol/L (98-107); Glucose 228 mg/dL (70-105); Potassium 3.3 mmol/L (3.5-5.1); Sodium 141 mmol/L (136-145)
[2021-06-29] MEDS ORDERED: Acetaminophen 500 MG TAB ONE (11:23)
[2021-06-29] MEDS ORDERED: Gabapentin 300 MG CAP ONE (11:23)
[2021-06-29] MEDS ORDERED: Scopolamine 1.5 mg/72 hour Patch ONE (11:27)
[2021-06-29] MEDS ORDERED: Isosulfan Blue 50 MG/5 ML VIAL ONE (11:55)
[2021-06-29] MEDS ORDERED: Famotidine/PF 20 mg/2ml Vial ONE (11:56)
[2021-06-29] MEDS ORDERED: Fentanyl 100 MCG/2 ML VIAL ONE ×2 (11:56→14:40)
[2021-06-29] MEDS ORDERED: SUGAMMADEX SODIUM 200 MG/2 ML VIAL ONE ×2 (12:05→14:04)
[2021-06-29] MEDS ORDERED: ePHEDrine 50 MG/ML VIAL ONE (12:09)
[2021-06-29] MEDS ORDERED: Rocuronium Bromide 10 MG/ML (10ML VIAL) ONE (12:09)
[2021-06-29] MEDS ORDERED: Glycopyrrolate 0.2 MG/ML 5 ML SYRINGE ONE (12:09)
[2021-06-29] MEDS ORDERED: Ondansetron PF 4 MG/2 ML Vial ONE (12:09)
[2021-06-29] MEDS ORDERED: PHENYLEPHRINE-NS 100 MCG/ML 10 ML SYRINGE ONE (12:09)
[2021-06-29] MEDS ORDERED: Metoclopramide HCl 10 MG/2 ML VIAL ONE (12:09)
[2021-06-29] MEDS ORDERED: PROPOFOL 200 MG/20 ML VIAL ONE (12:09)
[2021-06-29] MEDS ORDERED: Lidocaine 1% PF 5 ML VIAL ONE (12:09)
[2021-06-29] MEDS ORDERED: Ondansetron PF 4 MG/2 ML Vial IVP PRN (16:55)
[2021-06-29] MEDS ORDERED: Lorazepam 2 MG/ML VIAL SLOW IVP PRN (16:55)
[2021-06-29] MEDS ORDERED: Morphine 4 MG/ML VIAL SLOW IVP PRN (16:55)
[2021-06-29] MEDS ORDERED: hydrALAZINE 20 MG/ML VIAL SLOW IVP PRN (16:55)
[2021-06-29] MEDS ORDERED: Dextrose 50% Abboject 50 ML SYRINGE SLOW IVP PRN (16:55)
[2021-06-29] MEDS ORDERED: HYDROcodone/Acetaminophen 10/325 mg Tablet PO PRN (16:55)
[2021-06-29] MEDS ORDERED: Dextrose 5% in Water 1,000 ML IV PRN (16:55)
[2021-06-29] MEDS ORDERED: Morphine 2 MG/ML VIAL SLOW IVP PRN (16:55)
[2021-06-29] MEDS ORDERED: Melatonin 3 MG TAB PO PRN (16:58)
[2021-06-29] MEDS ORDERED: Ondansetron ODT 4 MG TAB PO PRN (16:58)
[2021-06-29] MEDS ORDERED: HYDROcodone/Acetaminophen 7.5/325 mg Tablet PO PRN (16:58)
[2021-06-29] MEDS ORDERED: cloNIDine 0.2 MG TAB PO PRN (16:58)
[2021-06-29 17:46] VITALS: BMI 36.9
[2021-06-29] MEDS ORDERED: Heparin 10,000 UNITS/ 10 ML VIAL CATH PRN (18:20)
[2021-06-29] MEDS ORDERED: HumaLOG 300 UNITS/3 ML VIAL SC PRN (19:15)
[2021-06-29] MEDS: Atorvastatin Calcium 20 MG TAB PO SCH (20:51)
[2021-06-29] MEDS: hydrALAZINE 25 MG TAB PO SCH (20:51)
[2021-06-29] MEDS: Famotidine 20 MG TAB PO SCH (20:52)
[2021-06-29] MEDS ORDERED: Apixaban 2.5 MG TAB PO SCH (21:00)
[2021-06-29 22:50] LABS: Glucose 151 mg/dL (70-105)
[2021-06-29] MEDS: HYDROcodone/Acetaminophen 10/325 mg Tablet PO PRN (23:07)
[2021-06-30] MEDS: HYDROcodone/Acetaminophen 10/325 mg Tablet PO PRN ×3 (05:39→20:29)
[2021-06-30 07:06] LABS: #Eosinphils 0.1 thou/uL (0.0-0.7); #Lymphocytes 0.6 thou/uL (1.20-3.40); #Monocytes 0.7 thou/uL (0.11-0.59); #Neutrophils 7.8 thou/uL (1.40-6.50); %Basophils 0.1 % (0.0-1.0); %Eosinophils 0.9 % (0.0-10.0); %Monocytes 7.6 % (0.0-10.0); %Neutrophils 85.3 % (42.0-75.0); Hemoglobin 6.9 g/dL (12.0-16.0); Mean Corpuscular HGB CONC 32.8 g/dL (32.0-36.0); Mean Corpuscular Hemoglobin 29.2 pg (27.0-31.0); Mean Corpuscular Volume 89.1 fL (78.0-98.0); Mean Platelet Volume 9.2 fL (7.4-10.4); Platelet Count 220 thou/uL (130-400); RBC Distribution Width 17.9 % (11.5-14.5); Red Blood Cell (RBC) Count 2.36 mill/uL (4.20-5.40); White Blood Cell (WBC) Count 9.1 thou/uL (4.8-10.8)
[2021-06-30 07:23] LABS: Anion Gap 10 mmol/L (10-20); BUN (Urea Nitrogen) 19 mg/dL (7.0-18.7); Calc. Creatinine Clearance 24 mL/min (70-130); Calcium 8.2 mg/dL (7.8-10.44); Carbon Dioxide 32 mmol/L (22-29); Chloride 102 mmol/L (98-107); Glucose 247 mg/dL (70-105); Potassium 3.4 mmol/L (3.5-5.1); Sodium 141 mmol/L (136-145)
[2021-06-30] MEDS: Gabapentin 300 MG CAP PO SCH (08:11)
[2021-06-30] MEDS: hydrALAZINE 25 MG TAB PO SCH ×2 (08:11→20:28)
[2021-06-30] MEDS: Carvedilol 25 MG TAB PO SCH ×3 (08:12→15:52)
[2021-06-30 08:17] LABS: Glucose 221 mg/dL (70-105)
[2021-06-30] MEDS ORDERED: HumaLOG 300 UNITS/3 ML VIAL SC PRN (09:29)
[2021-06-30] MEDS ORDERED: Heparin 10,000 UNITS/ 10 ML VIAL ONE (10:24)
[2021-06-30 12:34] LABS: Glucose 132 mg/dL (70-105)
[2021-06-30 17:04] LABS: Glucose 164 mg/dL (70-105)
[2021-06-30] MEDS: Apixaban 2.5 MG TAB PO SCH (20:28)
[2021-06-30] MEDS: Famotidine 20 MG TAB PO SCH (20:28)
[2021-06-30] MEDS: Atorvastatin Calcium 20 MG TAB PO SCH (20:28)
[2021-07-01] MEDS: Apixaban 2.5 MG TAB PO SCH (08:35)
[2021-07-01] MEDS: Gabapentin 300 MG CAP PO SCH (08:35)
[2021-07-01] MEDS: hydrALAZINE 25 MG TAB PO SCH (08:36)
[2021-07-01] MEDS: Carvedilol 25 MG TAB PO SCH (08:36)
[2021-07-01] MEDS: HYDROcodone/Acetaminophen 10/325 mg Tablet PO PRN (08:38)
[2021-07-01 12:03] VITALS: BP 124/89; TEMP 98
== END 2021-07-01 12:43 | disposition home or self-care (01) ==
LOC: SDC 09:56 → SURG B 17:36
PROVIDERS: ADMIT Specialist; ATTEND Specialist
PROC: 0HTV0ZZ Resection of Bilateral Breast, Open Approach (ICD-10-PCS; principal; 2021-06-29)
DX: C50.912 Malignant neoplasm of unspecified site of left female breast (principal); I13.2 Hypertensive heart and chronic kidney disease with heart failure and with stage 5 chronic kidney disease, or end stage renal disease; E11.22 Type 2 diabetes mellitus with diabetic chronic kidney disease; N18.6 End stage renal disease; I50.30 Unspecified diastolic (congestive) heart failure; D63.1 Anemia in chronic kidney disease; K21.9 Gastro-esophageal reflux disease without esophagitis; G47.33 Obstructive sleep apnea (adult) (pediatric); E78.5 Hyperlipidemia, unspecified; I48.0 Paroxysmal atrial fibrillation; E11.319 Type 2 diabetes mellitus with unspecified diabetic retinopathy without macular edema; Z99.2 Dependence on renal dialysis; Z88.5 Allergy status to narcotic agent; Z88.6 Allergy status to analgesic agent; Z79.01 Long term (current) use of anticoagulants; Z79.890 Hormone replacement therapy; Z79.4 Long term (current) use of insulin; Z79.899 Other long term (current) drug therapy; Z90.710 Acquired absence of both cervix and uterus
CPT/HCPCS: 36416; 36430; 80048; 82947; 85025; 86850; 86900; 86901; 88307; 96374; G0378; J0690; J1642; J1644; J1815; J2270; J2405; J2704; J2765; J3010; J3490; P9016; Q0162; Q9968; S0028

== ENCOUNTER 2021-08-09 08:14 | Outpatient (CLI) | payer BC ==
[2021-08-09 11:20] LABS: #Eosinphils 0.2 10x3/uL (0.0-0.5); #Monocytes 0.4 10x3/uL (0.0-1.1); #Neutrophils 3.3 10x3/uL (1.5-8.4); %Basophils 0.4 % (0.0-2.0); %Eosinophils 3.4 % (0.0-6.0); %Lymphocytes 26.1 % (18.0-47.0); %Monocytes 8.2 % (0.0-10.0); %Neutrophils 61.7 % (40.0-75.0); Hemoglobin 8.8 g/dL (12.0-15.5); Mean Corpuscular HGB CONC 30.1 g/dL (32.0-36.0); Mean Corpuscular Volume 86.1 fl (81.6-98.3); Platelet Count 306 10x3/uL (150-450); RBC Distribution Width 16.5 % (11.5-14.5); Red Blood Cell (RBC) Count 3.39 10x6/uL (3.90-5.03); White Blood Cell (WBC) Count 5.4 10x3/uL (3.5-10.5)
[2021-08-09 11:27] LABS: Anion Gap 20 mmol/L (10-20); BUN (Urea Nitrogen) 43 mg/dL (7.0-18.7); Calc. Creatinine Clearance 0 mL/min (70-130); Calcium 9.6 mg/dL (7.8-10.44); Carbon Dioxide 25 mmol/L (22-29); Chloride 101 mmol/L (98-107); Glucose 326 mg/dL (70-105); Sodium 142 mmol/L (136-145)
[2021-08-09 18:54] LABS: SARS-CoV-2 PCR by NAA Not Detected (NotDetected)
== END 2021-08-09 08:15 | disposition home or self-care (01) ==
LOC: LABBT 08:14
PROVIDERS: ATTEND Specialist
DX: Z01.812 Encounter for preprocedural laboratory examination (principal); N18.6 End stage renal disease; N64.89 Other specified disorders of breast; Z20.822 Contact with and (suspected) exposure to COVID-19
CPT/HCPCS: 80048; 85025; U0003; U0005

== ENCOUNTER 2021-08-10 10:06 | Day surgery (SDC) | payer BC ==
[2021-08-09 11:12] VITALS: BMI 32.1
[2021-08-10] MEDS ORDERED: Acetaminophen 500 MG TAB ONE (10:36)
[2021-08-10] MEDS ORDERED: Heparin 5,000 UNITS/ML VIAL ONE (12:46)
[2021-08-10] MEDS ORDERED: Bupivacaine 0.25% HCL 30 ML VIAL ONE (12:46)
[2021-08-10] MEDS ORDERED: Lidocaine 1% w/Epinephrine 1:100K 20 ML VIAL ONE (12:46)
[2021-08-10] MEDS ORDERED: Protamine Sulfate 50 MG/5 ML VIAL ONE (12:46)
[2021-08-10] MEDS ORDERED: PHENYLEPHRINE-NS 100 MCG/ML 10 ML SYRINGE ONE ×2 (13:00→13:03)
[2021-08-10] MEDS ORDERED: Phenylephrine 10 MG/ML VIAL ONE (13:00)
[2021-08-10] MEDS ORDERED: Ondansetron PF 4 MG/2 ML Vial ONE (13:03)
[2021-08-10] MEDS ORDERED: Lidocaine 1% PF 5 ML VIAL ONE (13:03)
[2021-08-10] MEDS ORDERED: PROPOFOL 200 MG/20 ML VIAL ONE (13:03)
[2021-08-10] MEDS ORDERED: Fentanyl 100 MCG/2 ML VIAL ONE ×2 (14:45→15:11)
[2021-08-10] MEDS ORDERED: Heparin 1,000 UNITS/ML VIAL ONE ×2 (16:25→16:27)
[2021-08-10] MEDS ORDERED: HYDROcodone/Acetaminophen 5/325 mg Tablet ONE (16:34)
== END 2021-08-10 17:33 | disposition home or self-care (01) ==
LOC: SDC 10:06
PROVIDERS: ATTEND Specialist
PROC: 0J963ZX Drainage of Chest Subcutaneous Tissue and Fascia, Percutaneous Approach, Diagnostic (ICD-10-PCS; principal; 2021-08-10)
PROC: 03170JD Bypass Right Brachial Artery to Upper Arm Vein with Synthetic Substitute, Open Approach (ICD-10-PCS; principal; 2021-08-10)
DX: I12.0 Hypertensive chronic kidney disease with stage 5 chronic kidney disease or end stage renal disease (principal); E11.22 Type 2 diabetes mellitus with diabetic chronic kidney disease; N18.6 End stage renal disease; D63.1 Anemia in chronic kidney disease; M96.843 Postprocedural seroma of a musculoskeletal structure following other procedure; T82.510A Breakdown (mechanical) of surgically created arteriovenous fistula, initial encounter; E78.5 Hyperlipidemia, unspecified; I48.0 Paroxysmal atrial fibrillation; M54.42 Lumbago with sciatica, left side; E11.21 Type 2 diabetes mellitus with diabetic nephropathy; E11.3299 Type 2 diabetes mellitus with mild nonproliferative diabetic retinopathy without macular edema, unspecified eye; Z79.4 Long term (current) use of insulin; Z85.3 Personal history of malignant neoplasm of breast; Y81.1 Therapeutic (nonsurgical) and rehabilitative general- and plastic-surgery devices associated with adverse incidents; Z79.01 Long term (current) use of anticoagulants; Z79.899 Other long term (current) drug therapy; Z99.2 Dependence on renal dialysis
CPT/HCPCS: 36416; J1644; J2370; J2405; J2704; J2720; J3010; L8670; S0020

== ENCOUNTER 2021-09-20 09:02 | Outpatient (CLI) | payer BC ==
[2021-09-21 11:00] LABS: SARS-CoV-2 PCR by NAA Not Detected (NotDetected)
== END 2021-09-20 09:03 | disposition home or self-care (01) ==
LOC: LABBT 09:02
PROVIDERS: ATTEND Thoracic Surgery (Cardiothoracic Vascular Surgery)
DX: Z01.812 Encounter for preprocedural laboratory examination (principal); I70.228 Atherosclerosis of native arteries of extremities with rest pain, other extremity; Z20.822 Contact with and (suspected) exposure to COVID-19
CPT/HCPCS: U0003; U0005

== ENCOUNTER 2021-09-23 06:22 | Day surgery (SDC) | payer BC ==
[2021-09-22 11:59] VITALS: BMI 30.8
[2021-09-23] MEDS ORDERED: Sodium Chloride 0.9% 30 ML ONE (07:10)
[2021-09-23 07:25] LABS: Hemoglobin 9.8 g/dL (12.0-16.0); Mean Corpuscular HGB CONC 31.5 g/dL (32.0-36.0); Mean Corpuscular Hemoglobin 25.9 pg (27.0-31.0); Mean Corpuscular Volume 82.2 fL (78.0-98.0); Mean Platelet Volume 5.2 fL (7.4-10.4); Platelet Count 174 thou/uL (130-400); RBC Distribution Width 18.8 % (11.5-14.5); Red Blood Cell (RBC) Count 3.78 mill/uL (4.20-5.40)
[2021-09-23 07:42] LABS: Anion Gap 18 mmol/L (10-20); BUN (Urea Nitrogen) 25 mg/dL (7.0-18.7); Calc. Creatinine Clearance 20 mL/min (70-130); Calcium 9.8 mg/dL (7.8-10.44); Carbon Dioxide 24 mmol/L (22-29); Chloride 101 mmol/L (98-107); Glucose 265 mg/dL (70-105); Potassium 3.8 mmol/L (3.5-5.1); Sodium 139 mmol/L (136-145)
[2021-09-23] MEDS ORDERED: Fentanyl 100 MCG/2 ML VIAL ONE ×2 (08:23→09:28)
[2021-09-23] MEDS ORDERED: Midazolam HCl 2 mg/2 ml Vial ONE (08:23)
[2021-09-23] MEDS ORDERED: Iopamidol 370 76% 100 ML VIAL ONE (09:01)
== END 2021-09-23 15:47 | disposition home or self-care (01) ==
LOC: SDC 06:22
PROVIDERS: ATTEND Thoracic Surgery (Cardiothoracic Vascular Surgery)
PROC: B3111ZZ Fluoroscopy of Right Brachiocephalic-Subclavian Artery using Low Osmolar Contrast (ICD-10-PCS; principal; 2021-09-23)
DX: I70.228 Atherosclerosis of native arteries of extremities with rest pain, other extremity (principal); I65.22 Occlusion and stenosis of left carotid artery; I12.0 Hypertensive chronic kidney disease with stage 5 chronic kidney disease or end stage renal disease; E11.22 Type 2 diabetes mellitus with diabetic chronic kidney disease; N18.6 End stage renal disease; I48.91 Unspecified atrial fibrillation; I77.89 Other specified disorders of arteries and arterioles; Z85.3 Personal history of malignant neoplasm of breast; Z79.01 Long term (current) use of anticoagulants; Z79.899 Other long term (current) drug therapy; Z88.5 Allergy status to narcotic agent; Z88.6 Allergy status to analgesic agent; Z99.2 Dependence on renal dialysis
CPT/HCPCS: 36216; 36217; 36415; 75710; 80048; 85027; 99152; 99153; J1642; J2250; J3010; Q9967

== ENCOUNTER 2021-10-01 15:38 | Outpatient (CLI) | payer BC ==
[2021-10-02 19:32] LABS: SARS-CoV-2 PCR by NAA Not Detected (NotDetected)
== END 2021-10-01 15:39 | disposition home or self-care (01) ==
LOC: LABBT 15:38
PROVIDERS: ATTEND Specialist
DX: Z01.812 Encounter for preprocedural laboratory examination (principal); Z20.822 Contact with and (suspected) exposure to COVID-19
CPT/HCPCS: 93005; 93010; U0003; U0005

== ENCOUNTER 2021-10-05 12:34 | Day surgery (SDC) | payer BC ==
[2021-10-04 09:18] VITALS: BMI 30.5
[2021-10-05] MEDS ORDERED: ceFAZolin 2 GM/DEX 5% 100 ML BAG ONE (13:53)
[2021-10-05 14:04] LABS: #Eosinphils 0.2 thou/uL (0.0-0.7); #Lymphocytes 1.6 thou/uL (1.20-3.40); #Monocytes 0.4 thou/uL (0.11-0.59); #Neutrophils 1.8 thou/uL (1.40-6.50); %Eosinophils 4.2 % (0.0-10.0); %Lymphocytes 39.1 % (21.0-51.0); %Monocytes 10.3 % (0.0-10.0); %Neutrophils 45.4 % (42.0-75.0); Hemoglobin 9.2 g/dL (12.0-16.0); Mean Corpuscular HGB CONC 32.2 g/dL (32.0-36.0); Mean Corpuscular Hemoglobin 26.4 pg (27.0-31.0); Mean Corpuscular Volume 82.1 fL (78.0-98.0); Mean Platelet Volume 4.9 fL (7.4-10.4); Platelet Count 184 thou/uL (130-400); RBC Distribution Width 19.6 % (11.5-14.5); White Blood Cell (WBC) Count 4.1 thou/uL (4.8-10.8)
[2021-10-05 14:07] LABS: Anion Gap 12 mmol/L (10-20); BUN (Urea Nitrogen) 28 mg/dL (7.0-18.7); Calc. Creatinine Clearance 18 mL/min (70-130); Calcium 9.3 mg/dL (7.8-10.44); Carbon Dioxide 31 mmol/L (22-29); Chloride 101 mmol/L (98-107); Glucose 209 mg/dL (70-105); Potassium 3.9 mmol/L (3.5-5.1); Sodium 140 mmol/L (136-145)
[2021-10-05] MEDS ORDERED: Bupivacaine PF 0.5% 30 ML VIAL ONE (15:49)
[2021-10-05] MEDS ORDERED: Heparin 5,000 UNITS/ML VIAL ONE (15:49)
[2021-10-05] MEDS ORDERED: EPINEPHrine 1 MG/ML AMP ONE (15:49)
[2021-10-05] MEDS ORDERED: Protamine Sulfate 50 MG/5 ML VIAL ONE (15:49)
[2021-10-05] MEDS ORDERED: Lidocaine 1% (PF) 30 ML VIAL ONE (15:49)
[2021-10-05] MEDS ORDERED: Fentanyl 100 MCG/2 ML VIAL ONE ×3 (17:08→20:03)
[2021-10-05] MEDS ORDERED: Lidocaine 1% PF 5 ML VIAL ONE (17:43)
[2021-10-05] MEDS ORDERED: Ondansetron PF 4 MG/2 ML Vial ONE (17:43)
[2021-10-05] MEDS ORDERED: PROPOFOL 200 MG/20 ML VIAL ONE (17:43)
[2021-10-05] MEDS ORDERED: Heparin 10,000 UNITS/ 10 ML VIAL ONE (20:17)
[2021-10-05] MEDS ORDERED: HYDROcodone/Acetaminophen 5/325 mg Tablet ONE (20:28)
== END 2021-10-05 23:35 | disposition home or self-care (01) ==
LOC: SDC 12:34
PROVIDERS: ATTEND Specialist
PROC: 03L70ZZ Occlusion of Right Brachial Artery, Open Approach (ICD-10-PCS; principal; 2021-10-05)
DX: I12.0 Hypertensive chronic kidney disease with stage 5 chronic kidney disease or end stage renal disease (principal); E11.22 Type 2 diabetes mellitus with diabetic chronic kidney disease; N18.6 End stage renal disease; D63.1 Anemia in chronic kidney disease; I77.89 Other specified disorders of arteries and arterioles; E11.51 Type 2 diabetes mellitus with diabetic peripheral angiopathy without gangrene; I48.0 Paroxysmal atrial fibrillation; E11.319 Type 2 diabetes mellitus with unspecified diabetic retinopathy without macular edema; Z85.3 Personal history of malignant neoplasm of breast; Z79.01 Long term (current) use of anticoagulants; Z79.899 Other long term (current) drug therapy; Z88.5 Allergy status to narcotic agent; Z88.6 Allergy status to analgesic agent; Z99.2 Dependence on renal dialysis
CPT/HCPCS: 80048; 85025; C1713; C1776; J0171; J1644; J2001; J2405; J2704; J2720; J3010; S0020

== ENCOUNTER 2021-10-14 12:55 | Outpatient (CLI) | payer BC | END 2021-10-14 12:56 | disposition home or self-care (01) | LOC: ULT 12:55 | PROVIDERS: ATTEND Internal Medicine Hematology & Oncology | DX: Z51.11 Encounter for antineoplastic chemotherapy (principal); C50.112 Malignant neoplasm of central portion of left female breast; D50.0 Iron deficiency anemia secondary to blood loss (chronic); I08.3 Combined rheumatic disorders of mitral, aortic and tricuspid valves; Z79.899 Other long term (current) drug therapy | CPT/HCPCS: 93306 ==

== ENCOUNTER 2021-11-07 15:47 | Inpatient (IN) | payer BC, SELFPAY ==
[~2021-11-07 15:47] MED LIST: Iopamidol 370 76% 50 ML VIAL FS ONE
[2021-11-07 17:03] LABS: #Eosinphils 0.1 thou/uL (0.0-0.7); #Lymphocytes 0.8 thou/uL (1.20-3.40); #Monocytes 0.4 thou/uL (0.11-0.59); %Basophils 0.3 % (0.0-1.0); %Lymphocytes 23.4 % (21.0-51.0); %Monocytes 12.5 % (0.0-10.0); %Neutrophils 59.8 % (42.0-75.0); Hemoglobin 8.9 g/dL (12.0-16.0); Mean Corpuscular HGB CONC 30.9 g/dL (32.0-36.0); Mean Corpuscular Hemoglobin 24.7 pg (27.0-31.0); Mean Corpuscular Volume 80.1 fL (78.0-98.0); Platelet Count 177 thou/uL (130-400); Red Blood Cell (RBC) Count 3.58 mill/uL (4.20-5.40); White Blood Cell (WBC) Count 3.4 thou/uL (4.8-10.8)
[2021-11-07 17:25] LABS: ALT (SGPT) 14 U/L (8-55); AST (SGOT) 15 U/L (5-34); Albumin 3.6 g/dL (3.5-5.0); Alkaline Phosphatase 82 U/L (40-110); Anion Gap 16 mmol/L (10-20); BUN (Urea Nitrogen) 40 mg/dL (7.0-18.7); Bilirubin, Total 0.5 mg/dL (0.2-1.2); CK (CPK) 115 U/L (29-168); Calc. Creatinine Clearance 0 mL/min (70-130); Calcium 9.7 mg/dL (7.8-10.44); Carbon Dioxide 27 mmol/L (22-29); Chloride 99 mmol/L (98-107); Globulin 3.4 g/dL (2.4-3.5); Glucose 228 mg/dL (70-105); Lipase 52 U/L (8-78); Potassium 3.9 mmol/L (3.5-5.1); Sodium 138 mmol/L (136-145)
[2021-11-07 17:44] LABS: CKMB 4.1 ng/mL (0-6.6)
[2021-11-07] MEDS ORDERED: Morphine 4 MG/ML VIAL ONE (18:32)
[2021-11-07] MEDS ORDERED: Ondansetron PF 4 MG/2 ML Vial ONE (18:32)
[2021-11-07] MEDS ORDERED: Ondansetron ODT 4 MG TAB SL PRN (19:45)
[2021-11-07] MEDS ORDERED: Ondansetron PF 4 MG/2 ML Vial IVP PRN (19:45)
[2021-11-07] MEDS ORDERED: Acetaminophen 325 MG TAB PO PRN (19:45)
[2021-11-07] MEDS ORDERED: Furosemide 40 MG/4 ML VIAL ONE (20:26)
[2021-11-07 20:44] LABS: SARS-CoV-2 NAA Rapid Test DETECTED (NotDetected)
[2021-11-07 22:23] VITALS: BMI 30.7
[2021-11-07] MEDS ORDERED: Dextrose 5% in Water 1,000 ML IV PRN (22:34)
[2021-11-07] MEDS ORDERED: Dextrose 50% Abboject 50 ML SYRINGE SLOW IVP PRN (22:34)
[2021-11-07] MEDS ORDERED: HumaLOG 300 UNITS/3 ML VIAL SC PRN (23:03)
[2021-11-07] MEDS ORDERED: Dexamethasone 1 MG TAB PO SCH (23:15)
[2021-11-08 01:24] LABS: Troponin I 0.043 ng/mL (< 0.028)
[2021-11-08 05:14] LABS: #Eosinphils 0.1 thou/uL (0.0-0.7); #Monocytes 0.4 thou/uL (0.11-0.59); #Neutrophils 1.4 thou/uL (1.40-6.50); %Basophils 0.2 % (0.0-1.0); %Eosinophils 3.3 % (0.0-10.0); %Lymphocytes 33.4 % (21.0-51.0); %Monocytes 14.5 % (0.0-10.0); %Neutrophils 48.5 % (42.0-75.0); Hemoglobin 8.2 g/dL (12.0-16.0); Mean Corpuscular HGB CONC 31.2 g/dL (32.0-36.0); Mean Corpuscular Hemoglobin 24.8 pg (27.0-31.0); Mean Corpuscular Volume 79.7 fL (78.0-98.0); Mean Platelet Volume 5.1 fL (7.4-10.4); Platelet Count 171 thou/uL (130-400); RBC Distribution Width 20.9 % (11.5-14.5); Red Blood Cell (RBC) Count 3.29 mill/uL (4.20-5.40); White Blood Cell (WBC) Count 2.9 thou/uL (4.8-10.8)
[2021-11-08 05:17] LABS: Anion Gap 16 mmol/L (10-20); BUN (Urea Nitrogen) 45 mg/dL (7.0-18.7); Calc. Creatinine Clearance 13 mL/min (70-130); Calcium 9.2 mg/dL (7.8-10.44); Carbon Dioxide 26 mmol/L (22-29); Chloride 99 mmol/L (98-107); Glucose 222 mg/dL (70-105); Iron 25 ug/dL (50-170); Iron Binding Capacity, Total 159 mcg/dL (265-497); Potassium 4.1 mmol/L (3.5-5.1); Sodium 137 mmol/L (136-145)
[2021-11-08 05:22] LABS: Troponin I 0.045 ng/mL (< 0.028)
[2021-11-08] MEDS ORDERED: Dexamethasone 4 MG TAB PO SCH (08:00)
[2021-11-08] MEDS ORDERED: Famotidine 20 MG TAB PO SCH (09:00)
[2021-11-08] MEDS ORDERED: Heparin 5,000 UNITS/ML VIAL SC SCH (09:00)
[2021-11-08] MEDS ORDERED: Furosemide 20 MG/2 ML VIAL SLOW IVP SCH ×2 (09:00→10:00)
[2021-11-08] MEDS ORDERED: Dexamethasone 6 MG in Sodium Chloride 0.9% 50 ML IVPB SCH (09:00)
[2021-11-08] MEDS ORDERED: Enoxaparin Sodium 30 MG/0.3 ML SYRINGE SC SCH (09:00)
[2021-11-08] MEDS: Amlodipine 10 MG TAB PO SCH (10:16)
[2021-11-08] MEDS: hydrALAZINE 25 MG TAB PO SCH (10:16)
[2021-11-08] MEDS: Carvedilol 25 MG TAB PO SCH ×2 (10:16→21:00)
[2021-11-08] MEDS: Gabapentin 300 MG CAP PO SCH ×2 (10:17→20:59)
[2021-11-08] MEDS: Dexamethasone 4 mg/ml Vial SLOW IVP SCH (10:18)
[2021-11-08] MEDS: Apixaban 2.5 MG TAB PO SCH ×2 (11:49→21:04)
[2021-11-08 14:03] LABS: HBSAg Index 0.27 S/CO (0-0.99); Hep B Surf Ag Non-Reactive S/CO (NonReactive)
[2021-11-08] MEDS: Famotidine 20 MG TAB PO SCH (21:00)
[2021-11-08] MEDS: HumaLOG 300 UNITS/3 ML VIAL SC PRN (21:56)
[2021-11-09] MEDS: hydrALAZINE 25 MG TAB PO SCH ×3 (00:19→21:02)
[2021-11-09 05:33] LABS: Band 4 % (5-11); Hemoglobin 6.6 g/dL (12.0-16.0); Hypochromia SLIGHT = 6-15 cells (100X) (0-5/hpf); Lymphocytes 46 % (21-51); MDiff Complete? YES; Mean Corpuscular HGB CONC 32.3 g/dL (32.0-36.0); Mean Corpuscular Hemoglobin 26.1 pg (27.0-31.0); Mean Corpuscular Volume 80.6 fL (78.0-98.0); Mean Platelet Volume 4.9 fL (7.4-10.4); Monocytes 2 % (0-10); Neutrophil 48 % (42-75); Platelet Count 115 thou/uL (130-400); Platelet Morphology Comment Appears Decreased; RBC Distribution Width 20.5 % (11.5-14.5); Red Blood Cell (RBC) Count 2.52 mill/uL (4.20-5.40); White Blood Cell (WBC) Count 1.8 thou/uL (4.8-10.8)
[2021-11-09 05:37] LABS: Anion Gap 12 mmol/L (10-20); BUN (Urea Nitrogen) 29 mg/dL (7.0-18.7); Calc. Creatinine Clearance 23 mL/min (70-130); Carbon Dioxide 23 mmol/L (22-29); Chloride 108 mmol/L (98-107); Glucose 229 mg/dL (70-105); Potassium 3.1 mmol/L (3.5-5.1); Sodium 140 mmol/L (136-145)
[2021-11-09 06:19] LABS: Hemoglobin 8.3 g/dL (12.0-16.0); Mean Corpuscular HGB CONC 32.2 g/dL (32.0-36.0); Mean Corpuscular Hemoglobin 25.9 pg (27.0-31.0); Mean Corpuscular Volume 80.4 fL (78.0-98.0); Mean Platelet Volume 5.5 fL (7.4-10.4); Platelet Count 156 thou/uL (130-400); RBC Distribution Width 20.4 % (11.5-14.5); Red Blood Cell (RBC) Count 3.22 mill/uL (4.20-5.40)
[2021-11-09 06:35] LABS: Hypochromia SLIGHT = 6-15 cells (100X) (0-5/hpf); Lymphocytes 68 % (21-51); MDiff Complete? YES; Neutrophil 32 % (42-75); Platelet Morphology Comment Appears Adequate
[2021-11-09 07:11] LABS: Hemoglobin A1c 8.6 % (4.0-6.0)
[2021-11-09 07:58] LABS: Magnesium 1.5 mg/dL (1.6-2.6)
[2021-11-09] MEDS ORDERED: Acetaminophen 325 MG TAB PO PRN (08:21)
[2021-11-09] MEDS: Gabapentin 300 MG CAP PO SCH ×2 (08:51→21:03)
[2021-11-09] MEDS: Amlodipine 10 MG TAB PO SCH (08:51)
[2021-11-09] MEDS: Famotidine 20 MG TAB PO SCH (08:51)
[2021-11-09] MEDS: Apixaban 2.5 MG TAB PO SCH ×2 (08:52→21:04)
[2021-11-09] MEDS: Carvedilol 25 MG TAB PO SCH ×2 (08:52→21:02)
[2021-11-09] MEDS: guaiFENesin ER 600 MG TAB PO PRN (08:52)
[2021-11-09] MEDS: Dexamethasone 4 mg/ml Vial SLOW IVP SCH (08:52)
[2021-11-09] MEDS ORDERED: Lantus 1000 UNITS/10 ML VIAL SC SCH (09:00)
[2021-11-09] MEDS: HumaLOG 300 UNITS/3 ML VIAL SC PRN ×3 (13:10→21:05)
[2021-11-09] MEDS: hydrOXYzine 25 MG TAB PO PRN (13:46)
[2021-11-09] MEDS: Benzonatate 100 MG CAP PO PRN ×2 (13:46→18:15)
[2021-11-09] MEDS: Albuterol 200 PUFF (6.7GM INHALER) INH PRN (16:29)
[2021-11-10] MEDS: hydrOXYzine 25 MG TAB PO PRN ×3 (00:22→20:59)
[2021-11-10] MEDS: Benzonatate 100 MG CAP PO PRN ×4 (00:22→20:56)
[2021-11-10 06:05] LABS: Band 3 % (5-11); Elliptocytes SLIGHT = 2-5 cells (100X) (0-1/hpf); Hemoglobin 7.7 g/dL (12.0-16.0); Hypochromia SLIGHT = 6-15 cells (100X) (0-5/hpf); Lymphocytes 37 % (21-51); MDiff Complete? YES; Mean Corpuscular HGB CONC 31.2 g/dL (32.0-36.0); Mean Corpuscular Volume 80.1 fL (78.0-98.0); Mean Platelet Volume 5.7 fL (7.4-10.4); Monocytes 6 % (0-10); Neutrophil 54 % (42-75); Platelet Count 155 thou/uL (130-400); Platelet Morphology Comment Appears Adequate; Polychromasia SLIGHT = 2-3 cells (100X) (0-2/hpf); RBC Distribution Width 20.3 % (11.5-14.5); Red Blood Cell (RBC) Count 3.08 mill/uL (4.20-5.40); Schistocytes SLIGHT = 2-5 cells (100X) (0-1/hpf); Target Cells SLIGHT = 2-5 cells (100X) (0-1/hpf); Tear Drops SLIGHT = 2-5 cells (100X) (0-1/hpf); White Blood Cell (WBC) Count 2.9 thou/uL (4.8-10.8)
[2021-11-10 06:24] LABS: Anion Gap 14 mmol/L (10-20); BUN (Urea Nitrogen) 59 mg/dL (7.0-18.7); Calc. Creatinine Clearance 15 mL/min (70-130); Carbon Dioxide 29 mmol/L (22-29); Chloride 97 mmol/L (98-107); Glucose 281 mg/dL (70-105); Sodium 136 mmol/L (136-145)
[2021-11-10] MEDS: HumaLOG 300 UNITS/3 ML VIAL SC PRN ×2 (06:50→13:11)
[2021-11-10] MEDS: Famotidine 20 MG TAB PO SCH (08:10)
[2021-11-10] MEDS: Amlodipine 10 MG TAB PO SCH (08:10)
[2021-11-10] MEDS: hydrALAZINE 25 MG TAB PO SCH ×2 (08:11→20:57)
[2021-11-10] MEDS: guaiFENesin ER 600 MG TAB PO PRN ×2 (08:11→20:57)
[2021-11-10] MEDS: Gabapentin 300 MG CAP PO SCH ×2 (08:12→20:56)
[2021-11-10] MEDS: Carvedilol 25 MG TAB PO SCH ×2 (08:12→20:56)
[2021-11-10] MEDS: Apixaban 2.5 MG TAB PO SCH ×2 (08:12→20:56)
[2021-11-10] MEDS: Albuterol 200 PUFF (6.7GM INHALER) INH PRN (08:25)
[2021-11-10] MEDS ORDERED: Lantus 1000 UNITS/10 ML VIAL SC SCH (09:00)
[2021-11-10] MEDS ORDERED: EPOETIN ALFA-EPBX (ESRD) 4,000 UNIT/ML VIAL SC SCH (12:00)
[2021-11-11] MEDS: HumaLOG 300 UNITS/3 ML VIAL SC PRN (05:40)
[2021-11-11 06:05] LABS: #Lymphocytes 1.2 thou/uL (1.20-3.40); #Monocytes 0.3 thou/uL (0.11-0.59); #Neutrophils 2.9 thou/uL (1.40-6.50); %Basophils 0.5 % (0.0-1.0); %Eosinophils 0.5 % (0.0-10.0); %Lymphocytes 27.9 % (21.0-51.0); %Monocytes 6.2 % (0.0-10.0); Hemoglobin 8.6 g/dL (12.0-16.0); Mean Corpuscular HGB CONC 31.4 g/dL (32.0-36.0); Mean Corpuscular Hemoglobin 24.8 pg (27.0-31.0); Mean Platelet Volume 5.3 fL (7.4-10.4); Platelet Count 186 thou/uL (130-400); RBC Distribution Width 20.8 % (11.5-14.5); Red Blood Cell (RBC) Count 3.47 mill/uL (4.20-5.40); White Blood Cell (WBC) Count 4.4 thou/uL (4.8-10.8)
[2021-11-11 06:24] LABS: Anion Gap 15 mmol/L (10-20); BUN (Urea Nitrogen) 46 mg/dL (7.0-18.7); Calc. Creatinine Clearance 17 mL/min (70-130); Carbon Dioxide 29 mmol/L (22-29); Chloride 97 mmol/L (98-107); Glucose 200 mg/dL (70-105); Potassium 3.6 mmol/L (3.5-5.1); Sodium 137 mmol/L (136-145)
[2021-11-11] MEDS: Carvedilol 25 MG TAB PO SCH (08:17)
[2021-11-11] MEDS: Gabapentin 300 MG CAP PO SCH (08:17)
[2021-11-11] MEDS: Amlodipine 10 MG TAB PO SCH (08:17)
[2021-11-11] MEDS: hydrALAZINE 25 MG TAB PO SCH (08:17)
[2021-11-11] MEDS: Famotidine 20 MG TAB PO SCH (08:18)
[2021-11-11] MEDS: Apixaban 2.5 MG TAB PO SCH (08:18)
[2021-11-11] MEDS ORDERED: Lantus 1000 UNITS/10 ML VIAL SC SCH (09:00)
[2021-11-11 11:32] VITALS: BP 135/83; TEMP 99.3
== END 2021-11-11 13:44 | disposition home or self-care (01) | DRG 177 ==
LOC: ERS 15:47 → T4-A 19:34 → OBSVTOIN 11-09 15:19
PROVIDERS: ADMIT Student in an Organized Health Care Education/Training Program; ATTEND Student in an Organized Health Care Education/Training Program
PROC: 8E0ZXY6 Isolation (ICD-10-PCS; principal; 2021-11-09)
PROC: 5A1D70Z Performance of Urinary Filtration, Intermittent, Less than 6 Hours Per Day (ICD-10-PCS; 2021-11-09)
DX: U07.1 COVID-19 (principal); N18.6 End stage renal disease; J96.01 Acute respiratory failure with hypoxia; I13.2 Hypertensive heart and chronic kidney disease with heart failure and with stage 5 chronic kidney disease, or end stage renal disease; I50.20 Unspecified systolic (congestive) heart failure; D70.1 Agranulocytosis secondary to cancer chemotherapy; T45.1X5A Adverse effect of antineoplastic and immunosuppressive drugs, initial encounter; I89.0 Lymphedema, not elsewhere classified; E11.22 Type 2 diabetes mellitus with diabetic chronic kidney disease; E87.70 Fluid overload, unspecified; E78.5 Hyperlipidemia, unspecified; I48.91 Unspecified atrial fibrillation; D63.1 Anemia in chronic kidney disease; Z85.3 Personal history of malignant neoplasm of breast; Z92.21 Personal history of antineoplastic chemotherapy; Z90.10 Acquired absence of unspecified breast and nipple; Z87.891 Personal history of nicotine dependence
CPT/HCPCS: 36415; 36416; 71045; 71275; 80048; 80053; 82550; 82553; 82728; 83036; 83540; 83550; 83605; 83690; 83735; 83880; 84145; 84484; 85025; 87040; 87340; 93005; 94760; 96374; 96375; 96376; G0378; J1100; J1642; J1815; J1940; J2270; J2405; J3475; J3490; Q9967; U0002

== ENCOUNTER 2021-11-22 17:21 | Inpatient (IN) | payer MEDICARE ==
[2021-11-22 18:15] LABS: Hemoglobin 7.5 g/dL (12.0-16.0); Mean Corpuscular HGB CONC 31.2 g/dL (32.0-36.0); Mean Corpuscular Hemoglobin 24.4 pg (27.0-31.0); Mean Corpuscular Volume 78.4 fL (78.0-98.0); Mean Platelet Volume 7.5 fL (7.4-10.4); Platelet Count 204 thou/uL (130-400); RBC Distribution Width 21.8 % (11.5-14.5); Red Blood Cell (RBC) Count 3.06 mill/uL (4.20-5.40); White Blood Cell (WBC) Count 5.5 thou/uL (4.8-10.8)
[2021-11-22 18:40] LABS: Anisocytosis MODERATE=16-30 cells (100X) (0-5/hpf); Band 2 % (5-11); Burr Cells SLIGHT = 2-5 cells (100X) (0-1/hpf); Elliptocytes SLIGHT = 2-5 cells (100X) (0-1/hpf); Eosinophils 1 % (0-10); Hypochromia SLIGHT = 6-15 cells (100X) (0-5/hpf); Lymphocytes 34 % (21-51); MDiff Complete? YES; Microcytosis SLIGHT = 6-15 cells (100X) (0-5/hpf); Monocytes 2 % (0-10); Neutrophil 59 % (42-75); Ovalocytes MODERATE= 6-15 cells (100X) (0-1/hpf); Platelet Morphology Comment Appears Adequate; Poikilocytosis MODERATE=16-30 cells (100X) (0-5/hpf); Polychromasia SLIGHT = 2-3 cells (100X) (0-2/hpf); Reactive Lymphocytes 1 % (0-10); Schistocytes SLIGHT = 2-5 cells (100X) (0-1/hpf); Spherocytes SLIGHT = 1-5 cells (100X) (None Seen)
[2021-11-22 19:37] LABS: CKMB 2.1 ng/mL (0-6.6)
[2021-11-22 21:29] LABS: ALT (SGPT) Less than 7 U/L (8-55); AST (SGOT) 8 U/L (5-34); Albumin 3.3 g/dL (3.5-5.0); Alkaline Phosphatase 43 U/L (40-110); Anion Gap 17 mmol/L (10-20); BUN (Urea Nitrogen) 48 mg/dL (7.0-18.7); Bilirubin, Total 0.8 mg/dL (0.2-1.2); Calc. Creatinine Clearance 0 mL/min (70-130); Calcium 9.2 mg/dL (7.8-10.44); Carbon Dioxide 29 mmol/L (22-29); Chloride 100 mmol/L (98-107); Globulin 3.8 g/dL (2.4-3.5); Glucose 110 mg/dL (70-105); Potassium 3.8 mmol/L (3.5-5.1); Protein, Total 7.1 g/dL (6.0-8.3); Sodium 142 mmol/L (136-145)
[2021-11-22] MEDS ORDERED: Acetaminophen 325 MG TAB PO PRN (23:26)
[2021-11-22] MEDS ORDERED: Lactated Ringer's 1,000 ML IV SCH (23:45)
[2021-11-23] MEDS ORDERED: Benzonatate 100 MG CAP PO PRN (00:04)
[2021-11-23] MEDS ORDERED: Albuterol 200 PUFF (6.7GM INHALER) INH PRN (00:04)
[2021-11-23 00:16] LABS: Troponin I 0.056 ng/mL (< 0.028)
[2021-11-23] MEDS ORDERED: Furosemide 20 MG/2 ML VIAL SLOW IVP SCH (00:30)
[2021-11-23] MEDS ORDERED: Furosemide 40 MG/4 ML VIAL ONE ×2 (01:59→02:01)
[2021-11-23] MEDS ORDERED: Furosemide 40 MG TAB ONE (01:59)
[2021-11-23] MEDS ORDERED: Gabapentin 300 MG CAP PO SCH (03:00)
[2021-11-23 06:49] LABS: Hemoglobin 6.6 g/dL (12.0-16.0); Mean Corpuscular HGB CONC 31.8 g/dL (32.0-36.0); Mean Corpuscular Volume 78.5 fL (78.0-98.0); Mean Platelet Volume 6.2 fL (7.4-10.4); Platelet Count 235 thou/uL (130-400); RBC Distribution Width 21.9 % (11.5-14.5); Red Blood Cell (RBC) Count 2.66 mill/uL (4.20-5.40); White Blood Cell (WBC) Count 4.1 thou/uL (4.8-10.8)
[2021-11-23 07:02] LABS: Lactic Acid 0.7 mmol/L (0.5-2.2)
[2021-11-23 07:07] LABS: ALT (SGPT) 7 U/L (8-55); AST (SGOT) 7 U/L (5-34); Alkaline Phosphatase 40 U/L (40-110); Anion Gap 17 mmol/L (10-20); BUN (Urea Nitrogen) 51 mg/dL (7.0-18.7); Bilirubin, Total 0.7 mg/dL (0.2-1.2); Calc. Creatinine Clearance 0 mL/min (70-130); Calcium 8.9 mg/dL (7.8-10.44); Carbon Dioxide 28 mmol/L (22-29); Chloride 100 mmol/L (98-107); Globulin 3.5 g/dL (2.4-3.5); Glucose 122 mg/dL (70-105); Potassium 3.7 mmol/L (3.5-5.1); Protein, Total 6.5 g/dL (6.0-8.3); Sodium 141 mmol/L (136-145)
[2021-11-23 07:36] LABS: Band 8 % (5-11); Eosinophils 5 % (0-10); Hypochromia SLIGHT = 6-15 cells (100X) (0-5/hpf); Lymphocytes 28 % (21-51); MDiff Complete? YES; Microcytosis SLIGHT = 6-15 cells (100X) (0-5/hpf); Monocytes 4 % (0-10); Neutrophil 55 % (42-75); Ovalocytes MODERATE= 6-15 cells (100X) (0-1/hpf); Platelet Morphology Comment Appears Adequate; Polychromasia SLIGHT = 2-3 cells (100X) (0-2/hpf); Schistocytes SLIGHT = 2-5 cells (100X) (0-1/hpf); Tear Drops SLIGHT = 2-5 cells (100X) (0-1/hpf)
[2021-11-23] MEDS ORDERED: Dexamethasone 4 MG TAB PO SCH (08:00)
[2021-11-23] MEDS ORDERED: Epoetin (ESRD) 20,000 UNITS/ML SC SCH (08:15)
[2021-11-23] MEDS ORDERED: Heparin 5,000 UNITS/ML VIAL SC SCH (09:00)
[2021-11-23] MEDS ORDERED: EPOETIN ALFA-EPBX (ESRD) 4,000 UNIT/ML VIAL SC SCH (09:00)
[2021-11-23] MEDS ORDERED: Dulaglutide (Trulicity) 0.75 MG/0.5 ML Pen.Injctr SC SCH (09:00)
[2021-11-23 09:24] VITALS: BMI 30.2
[2021-11-23] MEDS: Dexamethasone 4 MG TAB PO SCH (09:39)
[2021-11-23] MEDS: Atorvastatin Calcium 20 MG TAB PO SCH (09:40)
[2021-11-23] MEDS: Ondansetron ODT 8 MG TAB PO SCH (09:40)
[2021-11-23] MEDS: Potassium Chloride 20 MEQ TAB PO SCH (09:40)
[2021-11-23] MEDS: Gabapentin 300 MG CAP PO SCH (09:41)
[2021-11-23] MEDS: Aspirin 81 mg Enteric Coated Tablet PO SCH (09:42)
[2021-11-23] MEDS: Diltiazem HCl CD 300 mg Capsule PO SCH (10:21)
[2021-11-23] MEDS: Carvedilol 25 MG TAB PO SCH ×2 (10:21→21:16)
[2021-11-23] MEDS: Apixaban 2.5 MG TAB PO SCH ×2 (10:21→21:16)
[2021-11-23] MEDS: hydrALAZINE 25 MG TAB PO SCH ×2 (10:21→21:16)
[2021-11-23] MEDS: Amlodipine 10 MG TAB PO SCH (10:21)
[2021-11-23] MEDS: EPOETIN ALFA-EPBX (ESRD) 4,000 UNIT/ML VIAL SC SCH ×2 (14:32→18:47)
[2021-11-23] MEDS ORDERED: Dextrose 50% Abboject 50 ML SYRINGE SLOW IVP PRN (14:59)
[2021-11-23] MEDS ORDERED: Dextrose 5% in Water 1,000 ML IV PRN (14:59)
[2021-11-23] MEDS ORDERED: HumaLOG 300 UNITS/3 ML VIAL SC PRN (15:13)
[2021-11-23] MEDS ORDERED: EPOETIN ALFA-EPBX (ESRD) 2,000 UNIT/ML VIAL SC SCH (16:45)
[2021-11-23] MEDS: HumaLOG 300 UNITS/3 ML VIAL SC PRN (17:08)
[2021-11-23] MEDS: HYDROcodone/Acetaminophen 5/325 mg Tablet PO PRN (18:14)
[2021-11-23 19:34] LABS: Hemoglobin 9.7 g/dL (12.0-16.0)
[2021-11-23] MEDS ORDERED: Melatonin 3 MG TAB PO SCH (21:00)
[2021-11-23] MEDS ORDERED: Mirtazapine 15 MG TAB PO SCH (21:00)
[2021-11-24] MEDS: HumaLOG 300 UNITS/3 ML VIAL SC PRN ×2 (06:49→10:55)
[2021-11-24] MEDS: Aspirin 81 mg Enteric Coated Tablet PO SCH (08:23)
[2021-11-24] MEDS: Diltiazem HCl CD 300 mg Capsule PO SCH (08:23)
[2021-11-24] MEDS: Gabapentin 300 MG CAP PO SCH (08:23)
[2021-11-24] MEDS: Potassium Chloride 20 MEQ TAB PO SCH (08:23)
[2021-11-24] MEDS: Ondansetron ODT 8 MG TAB PO SCH (08:24)
[2021-11-24] MEDS: Amlodipine 10 MG TAB PO SCH (08:24)
[2021-11-24] MEDS: Dexamethasone 4 MG TAB PO SCH (08:24)
[2021-11-24] MEDS: hydrALAZINE 25 MG TAB PO SCH (08:24)
[2021-11-24] MEDS: Apixaban 2.5 MG TAB PO SCH (08:25)
[2021-11-24] MEDS: Atorvastatin Calcium 20 MG TAB PO SCH (08:25)
[2021-11-24] MEDS: Carvedilol 25 MG TAB PO SCH (08:25)
[2021-11-24] MEDS: HYDROcodone/Acetaminophen 5/325 mg Tablet PO PRN (10:55)
[2021-11-24] MEDS ORDERED: Cepastat Lozenges 1 LOZ PO PRN (11:42)
[2021-11-24 12:26] VITALS: BP 107/59; TEMP 98
[2021-11-24] MEDS ORDERED: guaiFENesin/DM ER PO SCH (21:00)
== END 2021-11-24 14:45 | disposition home or self-care (01) | DRG 204 ==
LOC: ERS 17:21 → ERHOLD 17:56 → 2SW 11-23 08:39 → OBSVTOIN 11-24 12:02
PROVIDERS: ADMIT Internal Medicine; ATTEND Internal Medicine
PROC: 30233N1 Transfusion of Nonautologous Red Blood Cells into Peripheral Vein, Percutaneous Approach (ICD-10-PCS; principal; 2021-11-23)
PROC: 5A1D70Z Performance of Urinary Filtration, Intermittent, Less than 6 Hours Per Day (ICD-10-PCS; 2021-11-23)
DX: R06.09 Other forms of dyspnea (principal); N18.6 End stage renal disease; I50.23 Acute on chronic systolic (congestive) heart failure; I13.2 Hypertensive heart and chronic kidney disease with heart failure and with stage 5 chronic kidney disease, or end stage renal disease; I24.8 Other forms of acute ischemic heart disease; U09.9 Post COVID-19 condition, unspecified; I48.91 Unspecified atrial fibrillation; E66.9 Obesity, unspecified; F41.9 Anxiety disorder, unspecified; D63.1 Anemia in chronic kidney disease; E11.22 Type 2 diabetes mellitus with diabetic chronic kidney disease; R53.81 Other malaise; Z99.2 Dependence on renal dialysis; Z85.3 Personal history of malignant neoplasm of breast; Z88.8 Allergy status to other drugs, medicaments and biological substances; Z79.51 Long term (current) use of inhaled steroids; Z79.899 Other long term (current) drug therapy; Z90.710 Acquired absence of both cervix and uterus; Z90.49 Acquired absence of other specified parts of digestive tract; Z87.891 Personal history of nicotine dependence; Z79.4 Long term (current) use of insulin; Z79.82 Long term (current) use of aspirin; Z68.30 Body mass index [BMI] 30.0-30.9, adult
CPT/HCPCS: 36415; 36416; 36430; 71045; 80053; 82553; 83605; 83880; 84145; 84484; 85025; 86850; 86900; 86901; 90935; 93005; 94640; 96372; 96374; G0257; G0378; J1642; J1815; J1940; J7120; J7620; J8540; P9016; Q0162; Q5105

== ENCOUNTER 2022-01-14 12:28 | Outpatient (CLI) | payer MEDICARE | END 2022-01-14 12:29 | disposition home or self-care (01) | LOC: ULT 12:28 | PROVIDERS: ATTEND Internal Medicine Hematology & Oncology | DX: Z51.11 Encounter for antineoplastic chemotherapy (principal); C50.112 Malignant neoplasm of central portion of left female breast; D50.0 Iron deficiency anemia secondary to blood loss (chronic); I08.1 Rheumatic disorders of both mitral and tricuspid valves; Z79.899 Other long term (current) drug therapy | CPT/HCPCS: 93306 ==

== ENCOUNTER 2022-03-15 00:31 | Inpatient (IN) | payer MEDICARE ==
[2022-03-15] MEDS ORDERED: Ondansetron PF 4 MG/2 ML Vial ONE ×2 (00:56→06:36)
[2022-03-15 01:27] LABS: #Lymphocytes 0.8 thou/uL (1.20-3.40); #Monocytes 0.3 thou/uL (0.11-0.59); #Neutrophils 3.6 thou/uL (1.40-6.50); %Basophils 0.9 % (0.0-1.0); %Eosinophils 0.3 % (0.0-10.0); %Lymphocytes 17.1 % (21.0-51.0); %Monocytes 7.1 % (0.0-10.0); %Neutrophils 74.6 % (42.0-75.0); Hemoglobin 9.9 g/dL (12.0-16.0); Mean Corpuscular HGB CONC 31.3 g/dL (32.0-36.0); Mean Corpuscular Hemoglobin 25.7 pg (27.0-31.0); Mean Corpuscular Volume 82.1 fL (78.0-98.0); Mean Platelet Volume 5.3 fL (7.4-10.4); Platelet Count 188 thou/uL (130-400); RBC Distribution Width 21.9 % (11.5-14.5); Red Blood Cell (RBC) Count 3.86 mill/uL (4.20-5.40); White Blood Cell (WBC) Count 4.8 thou/uL (4.8-10.8)
[2022-03-15 01:45] LABS: Anisocytosis MODERATE=16-30 cells (100X) (0-5/hpf); Elliptocytes SLIGHT = 2-5 cells (100X) (0-1/hpf); Hypochromia SLIGHT = 6-15 cells (100X) (0-5/hpf); Large Platelets SLIGHT; MDiff Complete? YES; Platelet Morphology Comment Appears Adequate; Polychromasia SLIGHT = 2-3 cells (100X) (0-2/hpf)
[2022-03-15 01:46] LABS: ALT (SGPT) 14 U/L (8-55); AST (SGOT) 16 U/L (5-34); Albumin 3.6 g/dL (3.5-5.0); Alkaline Phosphatase 70 U/L (40-110); Anion Gap 18 mmol/L (10-20); BUN (Urea Nitrogen) 32 mg/dL (9.8-20.1); Bilirubin, Total 0.6 mg/dL (0.2-1.2); Calc. Creatinine Clearance 0 mL/min (70-130); Calcium 8.9 mg/dL (7.8-10.44); Carbon Dioxide 23 mmol/L (22-29); Chloride 104 mmol/L (98-107); Globulin 3.6 g/dL (2.4-3.5); Glucose 267 mg/dL (70-105); Lipase 76 U/L (8-78); Protein, Total 7.2 g/dL (6.0-8.3); Sodium 142 mmol/L (136-145)
[2022-03-15 01:53] LABS: Potassium 2.6 mmol/L (3.5-5.1)
[2022-03-15] MEDS ORDERED: Promethazine 25 MG TAB ONE (01:53)
[2022-03-15] MEDS ORDERED: Ondansetron PF 4 MG/2 ML Vial IVP PRN (02:15)
[2022-03-15] MEDS ORDERED: Ondansetron ODT 4 MG TAB SL PRN (02:15)
[2022-03-15] MEDS ORDERED: Acetaminophen 325 MG TAB PO PRN (02:15)
[2022-03-15 02:38] LABS: Magnesium 1.8 mg/dL (1.6-2.6)
[2022-03-15] MEDS ORDERED: Potassium Chloride 10 MEQ in Premix Bag 1 BAG IVPB SCH (03:00)
[2022-03-15] MEDS: Potassium Chloride 10 MEQ in Premix Bag 1 BAG IVPB SCH ×3 (04:55→08:04)
[2022-03-15] MEDS ORDERED: Metoclopramide 10 MG/10 ML UDCUP PO SCH (05:00)
[2022-03-15] MEDS ORDERED: Famotidine 20 MG TAB ONE (05:12)
[2022-03-15] MEDS ORDERED: Famotidine 40 MG/5 ML Oral Suspension PO SCH (05:30)
[2022-03-15] MEDS ORDERED: Amlodipine 5 MG TAB ONE (07:49)
[2022-03-15] MEDS: Amlodipine 10 MG TAB PO SCH (08:00)
[2022-03-15 08:32] LABS: Anion Gap 20 mmol/L (10-20); BUN (Urea Nitrogen) 39 mg/dL (9.8-20.1); Calc. Creatinine Clearance 0 mL/min (70-130); Calcium 9.7 mg/dL (7.8-10.44); Carbon Dioxide 23 mmol/L (22-29); Chloride 101 mmol/L (98-107); Glucose 298 mg/dL (70-105); Potassium 3.3 mmol/L (3.5-5.1); Sodium 141 mmol/L (136-145)
[2022-03-15 08:36] LABS: Troponin I 0.172 ng/mL (< 0.028)
[2022-03-15] MEDS ORDERED: diphenhydrAMINE 50 MG/ML VIAL IVP SCH ×2 (08:45→15:45)
[2022-03-15] MEDS ORDERED: Metoprolol Tartrate 5 MG/5 ML VIAL IVP SCH (09:00)
[2022-03-15] MEDS ORDERED: Heparin 5,000 UNITS/ML VIAL SC SCH (09:00)
[2022-03-15] MEDS ORDERED: diphenhydrAMINE 50 MG/ML VIAL ONE (09:05)
[2022-03-15] MEDS ORDERED: Metoprolol Tartrate 5 MG/5 ML VIAL ONE (09:11)
[2022-03-15 10:45] LABS: SARS-CoV-2 NAA Rapid Test Not Detected (NotDetected)
[2022-03-15] MEDS ORDERED: Diltiazem 125 MG in Sodium Chloride 0.9% 100 ML IVPB SCH ×3 (11:30→17:00)
[2022-03-15 11:38] LABS: Troponin I 0.193 ng/mL (< 0.028)
[2022-03-15] MEDS ORDERED: Melatonin 3 MG TAB PO PRN (13:17)
[2022-03-15] MEDS ORDERED: hydrALAZINE 20 MG/ML VIAL ONE ×2 (13:19→14:38)
[2022-03-15] MEDS: hydrALAZINE 20 MG/ML VIAL SLOW IVP PRN ×2 (13:23→14:46)
[2022-03-15] MEDS ORDERED: Carvedilol 25 MG TAB PO SCH (14:30)
[2022-03-15] MEDS ORDERED: Labetalol HCl 100 MG/20 ML VIAL SLOW IVP PRN ×2 (14:48→15:23)
[2022-03-15] MEDS ORDERED: Labetalol HCl 100 MG/20 ML VIAL ONE (14:58)
[2022-03-15 15:52] VITALS: BMI 30.2
[2022-03-15] MEDS ORDERED: Diltiazem HCl 125 MG in Premix Bag 1 BAG IVPB SCH (20:30)
[2022-03-15] MEDS ORDERED: Dextrose 50% Abboject 50 ML SYRINGE SLOW IVP PRN (20:32)
[2022-03-15] MEDS ORDERED: Dextrose 5% in Water 1,000 ML IV PRN (20:32)
[2022-03-15] MEDS: Gabapentin 300 MG CAP PO SCH (21:32)
[2022-03-15] MEDS: Apixaban 2.5 MG TAB PO SCH (21:32)
[2022-03-15] MEDS: hydrALAZINE 25 MG TAB PO SCH (21:32)
[2022-03-15] MEDS: Carvedilol 25 MG TAB PO SCH (21:32)
[2022-03-15] MEDS: HumaLOG 300 UNITS/3 ML VIAL SC PRN (21:33)
[2022-03-15] MEDS: Acyclovir 400 mg Tablet PO SCH (21:33)
[2022-03-16 04:51] LABS: Anion Gap 17 mmol/L (10-20); BUN (Urea Nitrogen) 57 mg/dL (9.8-20.1); Calc. Creatinine Clearance 14 mL/min (70-130); Calcium 9.5 mg/dL (7.8-10.44); Carbon Dioxide 26 mmol/L (22-29); Chloride 100 mmol/L (98-107); Glucose 260 mg/dL (70-105); Magnesium 2.4 mg/dL (1.6-2.6); Potassium 3.3 mmol/L (3.5-5.1); Sodium 140 mmol/L (136-145)
[2022-03-16] MEDS: Carvedilol 25 MG TAB PO SCH ×2 (06:09→21:41)
[2022-03-16] MEDS: Gabapentin 300 MG CAP PO SCH ×2 (10:50→21:41)
[2022-03-16] MEDS: hydrALAZINE 25 MG TAB PO SCH ×2 (10:50→21:41)
[2022-03-16] MEDS: Amlodipine 10 MG TAB PO SCH (10:50)
[2022-03-16] MEDS: Acyclovir 400 mg Tablet PO SCH ×2 (10:51→21:41)
[2022-03-16] MEDS: Apixaban 2.5 MG TAB PO SCH ×2 (10:51→21:41)
[2022-03-16] MEDS: Insulin Glargine 30 UNITS/0.3 ML VIAL SC SCH (10:51)
[2022-03-16] MEDS ORDERED: diphenhydrAMINE 50 MG/ML VIAL IVP SCH (11:00)
[2022-03-16] MEDS ORDERED: EPOETIN ALFA-EPBX (ESRD) 10,000 UNIT/ML VIAL SC SCH (12:00)
[2022-03-16] MEDS: HumaLOG 300 UNITS/3 ML VIAL SC PRN (12:12)
[2022-03-16] MEDS: Vancomycin 25 MG/ML Oral SOLN PO SCH ×3 (15:14→23:02)
[2022-03-16] MEDS ORDERED: Ondansetron PF 4 MG/2 ML Vial IVP SCH (15:30)
[2022-03-16] MEDS: Atorvastatin Calcium 20 MG TAB PO SCH (21:41)
[2022-03-16] MEDS: diphenhydrAMINE 50 MG/ML VIAL IVP PRN (21:42)
[2022-03-17] MEDS: diphenhydrAMINE 50 MG/ML VIAL IVP PRN ×2 (06:41→22:18)
[2022-03-17] MEDS: Vancomycin 25 MG/ML Oral SOLN PO SCH ×4 (06:42→22:18)
[2022-03-17 07:31] LABS: Anion Gap 17 mmol/L (10-20); BUN (Urea Nitrogen) 40 mg/dL (9.8-20.1); Calc. Creatinine Clearance 17 mL/min (70-130); Calcium 9.2 mg/dL (7.8-10.44); Carbon Dioxide 28 mmol/L (22-29); Chloride 97 mmol/L (98-107); Glucose 194 mg/dL (70-105); Potassium 4.5 mmol/L (3.5-5.1); Sodium 137 mmol/L (136-145)
[2022-03-17] MEDS: Apixaban 2.5 MG TAB PO SCH ×2 (09:55→22:17)
[2022-03-17] MEDS: Amlodipine 10 MG TAB PO SCH (09:55)
[2022-03-17] MEDS: Gabapentin 300 MG CAP PO SCH ×2 (09:55→22:16)
[2022-03-17] MEDS: Carvedilol 25 MG TAB PO SCH ×2 (09:55→22:17)
[2022-03-17] MEDS: hydrALAZINE 25 MG TAB PO SCH ×2 (09:55→22:17)
[2022-03-17] MEDS: Insulin Glargine 30 UNITS/0.3 ML VIAL SC SCH (10:02)
[2022-03-17] MEDS: Acyclovir 400 mg Tablet PO SCH ×2 (10:02→22:17)
[2022-03-17] MEDS: Atorvastatin Calcium 20 MG TAB PO SCH (22:17)
[2022-03-18 04:31] LABS: Anion Gap 16 mmol/L (10-20); BUN (Urea Nitrogen) 58 mg/dL (9.8-20.1); Calc. Creatinine Clearance 14 mL/min (70-130); Calcium 9.3 mg/dL (7.8-10.44); Carbon Dioxide 26 mmol/L (22-29); Chloride 96 mmol/L (98-107); Glucose 189 mg/dL (70-105); Sodium 134 mmol/L (136-145)
[2022-03-18] MEDS: Vancomycin 25 MG/ML Oral SOLN PO SCH ×3 (05:55→20:57)
[2022-03-18] MEDS: Gabapentin 300 MG CAP PO SCH ×2 (10:27→20:59)
[2022-03-18] MEDS: Amlodipine 10 MG TAB PO SCH (10:27)
[2022-03-18] MEDS: hydrALAZINE 25 MG TAB PO SCH ×2 (10:28→20:58)
[2022-03-18] MEDS: Apixaban 2.5 MG TAB PO SCH ×2 (10:28→20:59)
[2022-03-18] MEDS: Carvedilol 25 MG TAB PO SCH ×2 (10:28→20:58)
[2022-03-18] MEDS: Insulin Glargine 30 UNITS/0.3 ML VIAL SC SCH (10:28)
[2022-03-18] MEDS: Acyclovir 400 mg Tablet PO SCH ×3 (10:29→21:04)
[2022-03-18 11:04] LABS: #Basophils 0.1 thou/uL (0.0-0.2); #Eosinphils 0.1 thou/uL (0.0-0.7); #Lymphocytes 2.3 thou/uL (1.20-3.40); #Monocytes 0.7 thou/uL (0.11-0.59); #Neutrophils 3.5 thou/uL (1.40-6.50); %Basophils 1.3 % (0.0-1.0); %Eosinophils 2.2 % (0.0-10.0); %Lymphocytes 34.5 % (21.0-51.0); %Monocytes 9.9 % (0.0-10.0); %Neutrophils 52.1 % (42.0-75.0); Hemoglobin 11.5 g/dL (12.0-16.0); Mean Corpuscular HGB CONC 33.1 g/dL (32.0-36.0); Mean Corpuscular Hemoglobin 25.9 pg (27.0-31.0); Mean Corpuscular Volume 78.3 fL (78.0-98.0); Mean Platelet Volume 4.9 fL (7.4-10.4); Platelet Count 213 thou/uL (130-400); RBC Distribution Width 21.9 % (11.5-14.5); Red Blood Cell (RBC) Count 4.46 mill/uL (4.20-5.40); White Blood Cell (WBC) Count 6.8 thou/uL (4.8-10.8)
[2022-03-18] MEDS ORDERED: Heparin 10,000 UNITS/ 10 ML VIAL ONE (14:09)
[2022-03-18] MEDS ORDERED: Prevnar 13-Val Conj/PF 0.5 ML SYRINGE IM ONE (16:30)
[2022-03-18] MEDS: Atorvastatin Calcium 20 MG TAB PO SCH (20:59)
[2022-03-18] MEDS: HumaLOG 300 UNITS/3 ML VIAL SC PRN (21:09)
[2022-03-19] MEDS: Vancomycin 25 MG/ML Oral SOLN PO SCH ×2 (02:02→06:21)
[2022-03-19] MEDS: HumaLOG 300 UNITS/3 ML VIAL SC PRN ×2 (06:22→12:15)
[2022-03-19 07:03] LABS: Anion Gap 13 mmol/L (10-20); BUN (Urea Nitrogen) 39 mg/dL (9.8-20.1); Calc. Creatinine Clearance 16 mL/min (70-130); Calcium 8.6 mg/dL (7.8-10.44); Carbon Dioxide 30 mmol/L (22-29); Chloride 97 mmol/L (98-107); Glucose 184 mg/dL (70-105); Potassium 3.8 mmol/L (3.5-5.1); Sodium 136 mmol/L (136-145)
[2022-03-19] MEDS ORDERED: Vancomycin 25 MG/ML Oral SOLN PO SCH (08:33)
[2022-03-19] MEDS: Insulin Glargine 30 UNITS/0.3 ML VIAL SC SCH (09:54)
[2022-03-19] MEDS: hydrALAZINE 25 MG TAB PO SCH (09:55)
[2022-03-19] MEDS: Amlodipine 10 MG TAB PO SCH (09:55)
[2022-03-19] MEDS: Carvedilol 25 MG TAB PO SCH (09:55)
[2022-03-19] MEDS: Gabapentin 300 MG CAP PO SCH (09:56)
[2022-03-19] MEDS: Acyclovir 400 mg Tablet PO SCH (09:56)
[2022-03-19] MEDS: Apixaban 2.5 MG TAB PO SCH (09:56)
[2022-03-19 11:54] VITALS: BP 155/81; TEMP 98.3
== END 2022-03-19 15:20 | disposition home or self-care (01) | DRG 371 ==
LOC: ERS 00:31 → ERHOLD 02:06 → 2NO 15:26 → OBSVTOIN 16:50 → T4-A 03-18 17:51
PROVIDERS: ADMIT Family Medicine; ATTEND Student in an Organized Health Care Education/Training Program
PROC: 8E0ZXY6 Isolation (ICD-10-PCS; 2022-03-15)
PROC: 5A1D70Z Performance of Urinary Filtration, Intermittent, Less than 6 Hours Per Day (ICD-10-PCS; principal; 2022-03-16)
DX: A04.72 Enterocolitis due to Clostridium difficile, not specified as recurrent (principal); N18.6 End stage renal disease; I12.0 Hypertensive chronic kidney disease with stage 5 chronic kidney disease or end stage renal disease; I47.1 Supraventricular tachycardia; Z20.822 Contact with and (suspected) exposure to COVID-19; C50.919 Malignant neoplasm of unspecified site of unspecified female breast; E87.6 Hypokalemia; R94.31 Abnormal electrocardiogram [ECG] [EKG]; E11.22 Type 2 diabetes mellitus with diabetic chronic kidney disease; D63.1 Anemia in chronic kidney disease; I48.0 Paroxysmal atrial fibrillation; I08.3 Combined rheumatic disorders of mitral, aortic and tricuspid valves; Z99.2 Dependence on renal dialysis; Z88.5 Allergy status to narcotic agent; Z28.21 Immunization not carried out because of patient refusal; Z88.8 Allergy status to other drugs, medicaments and biological substances; Z79.899 Other long term (current) drug therapy; Z79.02 Long term (current) use of antithrombotics/antiplatelets; Z79.4 Long term (current) use of insulin; Z79.82 Long term (current) use of aspirin; Z90.49 Acquired absence of other specified parts of digestive tract; Z90.13 Acquired absence of bilateral breasts and nipples; Z82.49 Family history of ischemic heart disease and other diseases of the circulatory system; Z79.01 Long term (current) use of anticoagulants
CPT/HCPCS: 36416; 80048; 80053; 83630; 83690; 83735; 84100; 84443; 84484; 85025; 87324; 87449; 87493; 90935; 93005; 93010; 93306; G0257; J0360; J1200; J1644; J1815; J2405; J3475; J3480; J3490; Q0169; Q5105

== ENCOUNTER → 2022-07-21 | Day surgery (SDC) | payer MEDICARE ==
[2022-07-19 14:45] VITALS: BMI 31.8
[~2022-07-21] MED LIST changes: +FLU VACC QS2022-23(6MOS UP)/PF 60 MCG/0.5 ML SYRINGE IM ONE; +Heparin 1,000 UNITS/ML VIAL ONE; -Iopamidol 370 76% 50 ML VIAL FS ONE
== END | disposition home or self-care (01) ==
LOC: SPEC 08:03
PROVIDERS: ATTEND Internal Medicine Nephrology
PROC: 057Y3ZZ Dilation of Upper Vein, Percutaneous Approach (ICD-10-PCS; principal; 2022-07-21)
PROC: B51W1ZZ Fluoroscopy of Dialysis Shunt/Fistula using Low Osmolar Contrast (ICD-10-PCS; 2022-07-21)
DX: I13.2 Hypertensive heart and chronic kidney disease with heart failure and with stage 5 chronic kidney disease, or end stage renal disease (principal); E11.22 Type 2 diabetes mellitus with diabetic chronic kidney disease; N18.6 End stage renal disease; I50.9 Heart failure, unspecified; G47.33 Obstructive sleep apnea (adult) (pediatric); E11.40 Type 2 diabetes mellitus with diabetic neuropathy, unspecified; I48.91 Unspecified atrial fibrillation; E78.5 Hyperlipidemia, unspecified; Z79.01 Long term (current) use of anticoagulants; Z79.4 Long term (current) use of insulin; Z79.899 Other long term (current) drug therapy; Z88.5 Allergy status to narcotic agent; Z88.6 Allergy status to analgesic agent; Z99.2 Dependence on renal dialysis
CPT/HCPCS: 36901; 36902; J1644

== ENCOUNTER 2023-11-03 09:05 | Outpatient (CLI) | payer MEDICARE | END 2023-11-03 09:06 | disposition home or self-care (01) | LOC: BICRAD 09:05 | PROVIDERS: ATTEND Family Medicine | DX: M54.50 Low back pain, unspecified (principal); M25.552 Pain in left hip; M47.816 Spondylosis without myelopathy or radiculopathy, lumbar region; M16.12 Unilateral primary osteoarthritis, left hip | CPT/HCPCS: 72100 ==

== ENCOUNTER 2023-12-27 08:22 | Outpatient (CLI) | payer MEDICARE ==
[2023-12-27 10:14] LABS: #Eosinphils 0.1 10x3/uL (0.0-0.5); #Monocytes 0.6 10x3/uL (0.0-1.1); #Neutrophils 3.6 10x3/uL (1.5-8.4); %Basophils 0.5 % (0.0-2.0); %Lymphocytes 21.7 % (18.0-47.0); %Monocytes 11.3 % (0.0-10.0); %Neutrophils 64.3 % (40.0-75.0); Hematocrit 30.2 % (34.9-44.5); Hemoglobin 9.1 g/dL (12.0-15.5); Mean Corpuscular HGB CONC 30.1 g/dL (32.0-36.0); Mean Corpuscular Hemoglobin 24.7 pg (27.0-33.0); Mean Corpuscular Volume 81.8 fl (81.6-98.3); Mean Platelet Volume 9.2 fl (7.4-10.4); Platelet Count 226 10x3/uL (150-450); RBC Distribution Width 19.4 % (11.5-14.5); Red Blood Cell (RBC) Count 3.69 10x6/uL (3.90-5.03); White Blood Cell (WBC) Count 5.6 10x3/uL (3.5-10.5)
[2023-12-27 10:55] LABS: Anion Gap 18 mmol/L (10-20); BUN (Urea Nitrogen) 49 mg/dL (9.8-20.1); Calc. Creatinine Clearance 0 mL/min (70-130); Calcium 9.3 mg/dL (7.8-10.44); Carbon Dioxide 30 mmol/L (22-29); Chloride 98 mmol/L (98-107); Estimated GFR 6; Glucose 190 mg/dL (70-105); Potassium 3.8 mmol/L (3.5-5.1); Sodium 142 mmol/L (136-145)
== END 2023-12-27 08:23 | disposition home or self-care (01) ==
LOC: LABBT 08:22
PROVIDERS: ATTEND Surgery
DX: Z01.812 Encounter for preprocedural laboratory examination (principal); C50.919 Malignant neoplasm of unspecified site of unspecified female breast
CPT/HCPCS: 80048; 85025

== ENCOUNTER 2024-06-01 15:59 | Inpatient (IN) | payer OTHER, MEDICARE ==
[2024-06-01 16:37] LABS: #Basophils 0.03 10x3/uL (0.0-0.2); %Basophils 0.6 % (0.0-1.0); %Eosinophils 3.7 % (0.0-10.0); %Monocytes 14.1 % (0.0-10.0); %Neutrophils 49.4 % (42.0-75.0); Hematocrit 32.2 % (36.0-47.0); Hemoglobin 9.6 g/dL (12.0-16.0); Mean Corpuscular HGB CONC 29.8 g/dL (32.0-36.0); Mean Corpuscular Hemoglobin 23.8 pg (27.0-31.0); Mean Corpuscular Volume 79.9 fL (78.0-98.0); Mean Platelet Volume 8.5 fL (7.4-10.4); Platelet Count 218 10x3/uL (130-400); RBC Distribution Width 20.8 % (11.5-14.5); Red Blood Cell (RBC) Count 4.03 mill/uL (4.20-5.40)
[2024-06-01 16:53] LABS: ALT (SGPT) 8 U/L (8-55); AST (SGOT) 13 U/L (5-34); Albumin 3.1 g/dL (3.5-5.0); Alkaline Phosphatase 60 U/L (40-110); Anion Gap 14 mmol/L (10-20); BUN (Urea Nitrogen) 23 mg/dL (9.8-20.1); Bilirubin, Total 0.5 mg/dL (0.2-1.2); Calc. Creatinine Clearance 0 mL/min (70-130); Calcium 10.3 mg/dL (7.8-10.44); Carbon Dioxide 33 mmol/L (22-29); Chloride 95 mmol/L (98-107); Estimated GFR 11; Globulin 4.3 g/dL (2.4-3.5); Glucose 120 mg/dL (70-105); Potassium 3.7 mmol/L (3.5-5.1); Protein, Total 7.4 g/dL (6.0-8.3); Sodium 138 mmol/L (136-145)
[2024-06-01 18:06] LABS: Troponin I 0.066 ng/mL (< 0.028)
[2024-06-01] MEDS ORDERED: Acetaminophen 650 MG Suppository PR PRN (19:03)
[2024-06-01] MEDS ORDERED: Acetaminophen 325 MG TAB PO PRN (19:03)
[2024-06-01] MEDS ORDERED: Ondansetron ODT 4 MG TAB PO PRN (19:03)
[2024-06-01] MEDS ORDERED: Ondansetron PF 4 MG/2 ML Vial IVP PRN (19:03)
[2024-06-01] MEDS ORDERED: hydrALAZINE 20 MG/ML VIAL ONE (19:04)
[2024-06-01] MEDS ORDERED: Acetaminophen 500 MG TAB ONE (19:17)
[2024-06-01 19:25] LABS: Influenza A by NAA Not Detected (NotDetected); Influenza B by NAA Not Detected (NotDetected); SARS-CoV-2 NAA Rapid Test Not Detected (NotDetected)
[2024-06-01] MEDS ORDERED: Ipratropium/Albuterol 3 ML NEB NEB PRN (20:26)
[2024-06-01 20:41] LABS: Troponin I 0.071 ng/mL (< 0.028)
[2024-06-01] MEDS ORDERED: Dextrose 5% in Water 1,000 ML IV PRN (20:44)
[2024-06-01] MEDS ORDERED: Insulin Lispro 100 UNIT/ML 10 ML VIAL SC PRN (20:44)
[2024-06-01] MEDS ORDERED: Glucagon 1 MG/ML KIT IM PRN (20:44)
[2024-06-01] MEDS ORDERED: Dextrose 50% Abboject 50 ML SYRINGE SLOW IVP PRN (20:44)
[2024-06-01] MEDS: Gabapentin 300 MG CAP PO SCH (20:59)
[2024-06-01] MEDS: HYDROcodone/Acetaminophen 7.5/325 mg Tablet PO PRN (20:59)
[2024-06-01] MEDS: Famotidine 20 MG TAB PO SCH (20:59)
[2024-06-01] MEDS: Carvedilol 25 MG TAB PO SCH (20:59)
[2024-06-01] MEDS: hydrALAZINE 25 MG TAB PO SCH (20:59)
[2024-06-01] MEDS: Famotidine/PF 20 mg/2ml Vial SLOW IVP SCH (21:00)
[2024-06-01] MEDS: Furosemide 40 MG (4 mL) VIAL SLOW IVP SCH (21:00)
[2024-06-01] MEDS: Insulin Glargine 30 UNITS/0.3 ML VIAL SC SCH (21:00)
[2024-06-01 21:21] VITALS: BMI 35.6
[2024-06-01] MEDS ORDERED: Bisacodyl 5 MG TAB PO PRN (21:30)
[2024-06-01] MEDS: Senokot S 8.6-50 MG TAB PO PRN (21:50)
[2024-06-01] MEDS: Melatonin 3 MG TAB PO PRN (21:56)
[2024-06-01 23:25] LABS: Magnesium 3.1 mg/dL (1.6-2.6)
[2024-06-01 23:40] LABS: Troponin I 0.066 ng/mL (< 0.028)
[2024-06-02 04:02] LABS: #Basophils 0.04 10x3/uL (0.0-0.2); %Basophils 0.8 % (0.0-1.0); %Eosinophils 3.4 % (0.0-10.0); %Lymphocytes 38.4 % (21.0-51.0); %Neutrophils 42.2 % (42.0-75.0); Hemoglobin 9.2 g/dL (12.0-16.0); Mean Corpuscular HGB CONC 29.7 g/dL (32.0-36.0); Mean Corpuscular Hemoglobin 23.3 pg (27.0-31.0); Mean Corpuscular Volume 78.5 fL (78.0-98.0); Mean Platelet Volume 9.7 fL (7.4-10.4); Platelet Count 235 10x3/uL (130-400); RBC Distribution Width 20.8 % (11.5-14.5); Red Blood Cell (RBC) Count 3.95 mill/uL (4.20-5.40)
[2024-06-02 04:28] LABS: Anion Gap 16 mmol/L (10-20); BUN (Urea Nitrogen) 28 mg/dL (9.8-20.1); Calc. Creatinine Clearance 18 mL/min (70-130); Calcium 10.3 mg/dL (7.8-10.44); Carbon Dioxide 30 mmol/L (22-29); Chloride 95 mmol/L (98-107); Estimated GFR 8; Glucose 117 mg/dL (70-105); Potassium 3.6 mmol/L (3.5-5.1); Sodium 137 mmol/L (136-145)
[2024-06-02] MEDS: dilTIAZem CD 300 MG CAP PO SCH (09:53)
[2024-06-02] MEDS ORDERED: Heparin 10,000 UNITS/ 10 ML VIAL ONE (16:09)
[2024-06-02] MEDS: Morphine 4 MG/ML VIAL SLOW IVP SCH (20:17)
[2024-06-02] MEDS: Sacubitril 24MG/Valsartan 26 MG TAB PO SCH (20:17)
[2024-06-03] MEDS: hydrALAZINE 25 MG TAB PO SCH ×2 (04:40→13:59)
[2024-06-03] MEDS: Insulin Lispro 100 UNIT/ML 10 ML VIAL SC PRN (06:22)
[2024-06-03] MEDS ORDERED: Heparin 10,000 UNITS/ 10 ML VIAL ONE (10:52)
[2024-06-03] MEDS: Magnesium Citrate 300 ML BOT PO SCH (10:58)
[2024-06-03] MEDS: Ketorolac Tromethamine 30 MG (1 mL) VIAL IVP SCH (13:58)
[2024-06-03] MEDS: Lidocaine 2% Viscous Solution 10 ML, Aluminum & Magnesium Hydroxide 30 ML SSW SCH (18:40)
[2024-06-04 04:10] LABS: #Basophils Less than 0.03 10x3/uL (0.0-0.2); %Basophils 0.3 % (0.0-1.0); %Lymphocytes 24.4 % (21.0-51.0); %Monocytes 11.3 % (0.0-10.0); %Neutrophils 58.8 % (42.0-75.0); Hemoglobin 10.1 g/dL (12.0-16.0); Mean Corpuscular HGB CONC 29.7 g/dL (32.0-36.0); Mean Corpuscular Hemoglobin 23.8 pg (27.0-31.0); Mean Platelet Volume 9.6 fL (7.4-10.4); Platelet Count 237 10x3/uL (130-400); RBC Distribution Width 21.3 % (11.5-14.5); Red Blood Cell (RBC) Count 4.25 mill/uL (4.20-5.40)
[2024-06-04 04:22] LABS: Anion Gap 17 mmol/L (10-20); BUN (Urea Nitrogen) 21 mg/dL (9.8-20.1); Calc. Creatinine Clearance 19 mL/min (70-130); Calcium 10.2 mg/dL (7.8-10.44); Carbon Dioxide 30 mmol/L (22-29); Chloride 97 mmol/L (98-107); Estimated GFR 9; Glucose 212 mg/dL (70-105); Potassium 3.9 mmol/L (3.5-5.1); Sodium 140 mmol/L (136-145)
[2024-06-04] MEDS ORDERED: Heparin 10,000 UNITS/ 10 ML VIAL ONE (09:58)
[2024-06-04 12:47] VITALS: TEMP 98.3
[2024-06-04 13:00] VITALS: BP 176/79
[2024-06-04] MEDS ORDERED: Famotidine 20 MG TAB PO SCH (21:00)
[2024-06-04] MEDS ORDERED: Famotidine/PF 20 mg/2ml Vial SLOW IVP SCH (21:00)
== END 2024-06-04 15:15 | disposition home or self-care (01) | DRG 291 ==
LOC: ERS 15:59 → 2SW 19:06 → OBSVTOIN 23:26
PROVIDERS: ADMIT Internal Medicine; ATTEND Internal Medicine
PROC: 5A1D70Z Performance of Urinary Filtration, Intermittent, Less than 6 Hours Per Day (ICD-10-PCS; principal; 2024-06-03)
DX: I13.2 Hypertensive heart and chronic kidney disease with heart failure and with stage 5 chronic kidney disease, or end stage renal disease (principal); I50.33 Acute on chronic diastolic (congestive) heart failure; N18.6 End stage renal disease; J98.11 Atelectasis; I48.0 Paroxysmal atrial fibrillation; E11.22 Type 2 diabetes mellitus with diabetic chronic kidney disease; E78.5 Hyperlipidemia, unspecified; K59.00 Constipation, unspecified; Z88.5 Allergy status to narcotic agent; Z79.01 Long term (current) use of anticoagulants; Z79.4 Long term (current) use of insulin; Z79.899 Other long term (current) drug therapy; Z99.2 Dependence on renal dialysis; Z85.3 Personal history of malignant neoplasm of breast; Z92.21 Personal history of antineoplastic chemotherapy; Z92.3 Personal history of irradiation; Z90.710 Acquired absence of both cervix and uterus; Z90.13 Acquired absence of bilateral breasts and nipples; Z98.890 Other specified postprocedural states
CPT/HCPCS: 36415; 36416; 71045; 74018; 80048; 80053; 83735; 83880; 84443; 84484; 85025; 90935; 93005; 96374; 96375; G0257; G0378; J0360; J1644; J1815; J1885; J1940; J2272

== ENCOUNTER 2024-07-08 20:15 | Emergency (ER) | payer OTHER, MEDICARE ==
[2024-07-08 21:04] LABS: #Basophils 0.04 10x3/uL (0.0-0.2); %Basophils 0.7 % (0.0-1.0); %Eosinophils 2.4 % (0.0-10.0); %Lymphocytes 23.3 % (21.0-51.0); %Monocytes 11.5 % (0.0-10.0); %Neutrophils 61.9 % (42.0-75.0); Hematocrit 31.2 % (36.0-47.0); Hemoglobin 9.3 g/dL (12.0-16.0); Mean Corpuscular HGB CONC 29.8 g/dL (32.0-36.0); Mean Corpuscular Hemoglobin 23.3 pg (27.0-31.0); Mean Platelet Volume 9.2 fL (7.4-10.4); Platelet Count 221 10x3/uL (130-400); RBC Distribution Width 21.5 % (11.5-14.5)
[2024-07-08 21:57] LABS: ALT (SGPT) 9 U/L (8-55); AST (SGOT) 10 U/L (5-34); Albumin 3.1 g/dL (3.5-5.0); Alkaline Phosphatase 65 U/L (40-110); Anion Gap 19 mmol/L (10-20); BUN (Urea Nitrogen) 77 mg/dL (9.8-20.1); Bilirubin, Total 0.5 mg/dL (0.2-1.2); Calc. Creatinine Clearance 0 mL/min (70-130); Calcium 9.8 mg/dL (7.8-10.44); Carbon Dioxide 28 mmol/L (22-29); Chloride 100 mmol/L (98-107); Estimated GFR 3; Globulin 4.4 g/dL (2.4-3.5); Glucose 88 mg/dL (70-105); Protein, Total 7.5 g/dL (6.0-8.3); Sodium 143 mmol/L (136-145)
[2024-07-08] MEDS ORDERED: LevoFLOXacin 250 MG TAB ONE (23:03)
[2024-07-08] MEDS ORDERED: LevoFLOXacin 500 MG TAB ONE (23:04)
== END 2024-07-08 23:13 | disposition home or self-care (01) ==
LOC: ERS 20:15
DX: J18.9 Pneumonia, unspecified organism (principal); I13.2 Hypertensive heart and chronic kidney disease with heart failure and with stage 5 chronic kidney disease, or end stage renal disease; E11.22 Type 2 diabetes mellitus with diabetic chronic kidney disease; N18.6 End stage renal disease; I50.30 Unspecified diastolic (congestive) heart failure; I48.91 Unspecified atrial fibrillation; E66.9 Obesity, unspecified; Z99.2 Dependence on renal dialysis; Z79.4 Long term (current) use of insulin; Z87.891 Personal history of nicotine dependence
CPT/HCPCS: 36415; 71045; 80053; 83605; 83690; 83880; 84484; 85025; 87040; 93005

== ENCOUNTER 2024-07-29 09:02 | Outpatient (CLI) | payer MEDICARE ==
[2024-07-29] MEDS ORDERED: Iopamidol 370 76% 100 ML VIAL ONE (09:50)
== END 2024-07-29 09:03 | disposition home or self-care (01) ==
LOC: CT 09:02
PROVIDERS: ATTEND Internal Medicine Hematology & Oncology
DX: C50.112 Malignant neoplasm of central portion of left female breast (principal); R59.0 Localized enlarged lymph nodes; N28.89 Other specified disorders of kidney and ureter; K76.89 Other specified diseases of liver; N20.0 Calculus of kidney
CPT/HCPCS: 71260; 74177; Q9967

== ENCOUNTER 2024-09-17 07:23 | Emergency (ER) | payer MEDICARE ==
[2024-09-17] MEDS ORDERED: Labetalol HCl 100 MG/20 ML VIAL ONE (08:08)
[2024-09-17] MEDS ORDERED: Morphine 4 MG/ML VIAL ONE ×2 (08:08→10:15)
[2024-09-17] MEDS ORDERED: Ondansetron PF 4 MG/2 ML Vial ONE (08:08)
[2024-09-17 08:57] LABS: ALT (SGPT) Less than 5 U/L (8-55); AST (SGOT) 13 U/L (5-34); Albumin 3.2 g/dL (3.5-5.0); Alkaline Phosphatase 56 U/L (40-110); Anion Gap 16 mmol/L (10-20); BUN (Urea Nitrogen) 48 mg/dL (9.8-20.1); Bilirubin, Total 0.4 mg/dL (0.2-1.2); Calc. Creatinine Clearance 0 mL/min (70-130); Calcium 9.4 mg/dL (7.8-10.44); Carbon Dioxide 28 mmol/L (22-29); Chloride 96 mmol/L (98-107); Estimated GFR 5; Globulin 4.1 g/dL (2.4-3.5); Glucose 117 mg/dL (70-105); Lipase 33 U/L (8-78); Potassium 3.4 mmol/L (3.5-5.1); Protein, Total 7.3 g/dL (6.0-8.3); Sodium 137 mmol/L (136-145)
[2024-09-17 10:46] LABS: #Basophils 0.03 10x3/uL (0.0-0.2); %Basophils 0.6 % (0.0-1.0); %Eosinophils 5.7 % (0.0-10.0); %Lymphocytes 17.8 % (21.0-51.0); %Monocytes 9.7 % (0.0-10.0); Hematocrit 29.7 % (36.0-47.0); Hemoglobin 9.1 g/dL (12.0-16.0); Mean Corpuscular HGB CONC 30.6 g/dL (32.0-36.0); Mean Corpuscular Hemoglobin 23.6 pg (27.0-31.0); Mean Corpuscular Volume 77.1 fL (78.0-98.0); Platelet Count 191 10x3/uL (130-400); RBC Distribution Width 22.2 % (11.5-14.5); Red Blood Cell (RBC) Count 3.85 mill/uL (4.20-5.40)
== END 2024-09-17 12:35 | disposition home or self-care (01) ==
LOC: ERS 07:23
DX: K59.00 Constipation, unspecified (principal); I48.91 Unspecified atrial fibrillation; E78.00 Pure hypercholesterolemia, unspecified; I13.11 Hypertensive heart and chronic kidney disease without heart failure, with stage 5 chronic kidney disease, or end stage renal disease; E11.22 Type 2 diabetes mellitus with diabetic chronic kidney disease; I50.30 Unspecified diastolic (congestive) heart failure; N18.6 End stage renal disease; Z79.01 Long term (current) use of anticoagulants; Z79.899 Other long term (current) drug therapy; Z79.4 Long term (current) use of insulin; Z99.2 Dependence on renal dialysis; Z87.891 Personal history of nicotine dependence
CPT/HCPCS: 74177; 80053; 83690; 85025; J2272; J2405; 36415; 96374; 96375; 96376

== ENCOUNTER 2024-09-23 17:56 | Inpatient (IN) | payer MEDICARE, OTHER ==
[2024-09-23] MEDS ORDERED: Morphine 4 MG/ML VIAL ONE ×2 (18:49→23:50)
[2024-09-23] MEDS ORDERED: Nitroglycerin 2% Ointment 1 INCH/1 GM Packet ONE (18:50)
[2024-09-23] MEDS ORDERED: Ondansetron PF 4 MG/2 ML Vial ONE (18:50)
[2024-09-23] MEDS ORDERED: hydrALAZINE 20 MG/ML VIAL ONE (18:50)
[2024-09-23] MEDS ORDERED: cefTRIAXone (ROCEPHIN) 2 GM VIAL ONE (18:57)
[2024-09-23] MEDS ORDERED: Sodium Chloride 0.9% 100 ML ONE (18:59)
[2024-09-23 19:05] LABS: #Basophils 0.05 10x3/uL (0.0-0.2); %Basophils 0.9 % (0.0-1.0); %Eosinophils 5.7 % (0.0-10.0); %Lymphocytes 18.8 % (21.0-51.0); %Monocytes 12.8 % (0.0-10.0); %Neutrophils 61.3 % (42.0-75.0); Hematocrit 29.9 % (36.0-47.0); Hemoglobin 9.3 g/dL (12.0-16.0); Mean Corpuscular HGB CONC 31.1 g/dL (32.0-36.0); Mean Corpuscular Hemoglobin 23.7 pg (27.0-31.0); Mean Corpuscular Volume 76.3 fL (78.0-98.0); Platelet Count 265 10x3/uL (130-400); RBC Distribution Width 22.8 % (11.5-14.5); Red Blood Cell (RBC) Count 3.92 mill/uL (4.20-5.40)
[2024-09-23 19:23] LABS: Troponin I 0.055 ng/mL (< 0.028)
[2024-09-23] MEDS ORDERED: Azithromycin 500 MG VIAL ONE (19:31)
[2024-09-23] MEDS ORDERED: Sodium Chloride 0.9% 250 ML 250 ML ONE (19:31)
[2024-09-23 19:40] LABS: ALT (SGPT) 8 U/L (8-55); AST (SGOT) 28 U/L (5-34); Albumin 3.3 g/dL (3.5-5.0); Alkaline Phosphatase 60 U/L (40-110); Anion Gap 20 mmol/L (10-20); BUN (Urea Nitrogen) 44 mg/dL (9.8-20.1); Bilirubin, Total 0.5 mg/dL (0.2-1.2); Calc. Creatinine Clearance 0 mL/min (70-130); Calcium 10.1 mg/dL (7.8-10.44); Carbon Dioxide 26 mmol/L (22-29); Chloride 99 mmol/L (98-107); Estimated GFR 5; Globulin 4.5 g/dL (2.4-3.5); Glucose 92 mg/dL (70-105); Potassium 4.5 mmol/L (3.5-5.1); Protein, Total 7.8 g/dL (6.0-8.3); Sodium 140 mmol/L (136-145)
[2024-09-24] MEDS ORDERED: Ondansetron ODT 4 MG TAB SL PRN (00:15)
[2024-09-24] MEDS ORDERED: Ondansetron PF 4 MG/2 ML Vial IVP PRN ×2 (00:15→01:41)
[2024-09-24] MEDS ORDERED: Acetaminophen 325 MG TAB PO PRN ×2 (00:15→01:41)
[2024-09-24] MEDS ORDERED: Ondansetron ODT 4 MG TAB PO PRN (01:41)
[2024-09-24] MEDS ORDERED: Glucagon 1 MG/ML KIT IM PRN (01:41)
[2024-09-24] MEDS ORDERED: Dextrose 5% in Water 1,000 ML IV PRN (01:41)
[2024-09-24] MEDS ORDERED: Insulin Lispro 100 UNIT/ML 10 ML VIAL SC PRN ×2 (01:41)
[2024-09-24] MEDS ORDERED: Ipratropium/Albuterol 3 ML NEB NEB PRN (03:13)
[2024-09-24] MEDS ORDERED: Furosemide 20 MG (2 mL) VIAL ONE (03:32)
[2024-09-24] MEDS: Furosemide 20 MG (2 mL) VIAL SLOW IVP SCH (03:40)
[2024-09-24] MEDS ORDERED: Dextrose 10% in Water 250 ML ONE (03:43)
[2024-09-24] MEDS: Dextrose 50% Abboject 50 ML SYRINGE SLOW IVP PRN (03:46)
[2024-09-24 04:01] LABS: #Basophils 0.05 10x3/uL (0.0-0.2); %Basophils 0.9 % (0.0-1.0); %Eosinophils 6.1 % (0.0-10.0); %Lymphocytes 23.2 % (21.0-51.0); %Monocytes 12.1 % (0.0-10.0); %Neutrophils 57.2 % (42.0-75.0); Hematocrit 30.3 % (36.0-47.0); Mean Corpuscular HGB CONC 29.7 g/dL (32.0-36.0); Mean Corpuscular Hemoglobin 22.8 pg (27.0-31.0); Mean Corpuscular Volume 76.9 fL (78.0-98.0); Mean Platelet Volume 9.2 fL (7.4-10.4); Platelet Count 229 10x3/uL (130-400); RBC Distribution Width 23.1 % (11.5-14.5); Red Blood Cell (RBC) Count 3.94 mill/uL (4.20-5.40)
[2024-09-24 04:30] LABS: Anion Gap 19 mmol/L (10-20); BUN (Urea Nitrogen) 50 mg/dL (9.8-20.1); Calc. Creatinine Clearance 0 mL/min (70-130); Carbon Dioxide 25 mmol/L (22-29); Chloride 102 mmol/L (98-107); Estimated GFR 5; Glucose 52 mg/dL (70-105); Iron 30 ug/dL (50-170); Iron Binding Capacity, Total 138 mcg/dL (265-497); Potassium 3.6 mmol/L (3.5-5.1); Sodium 142 mmol/L (136-145)
[2024-09-24 04:36] LABS: Troponin I 0.058 ng/mL (< 0.028)
[2024-09-24 05:08] LABS: INR-International Normal Ratio 1.2; PTT 34.2 sec (22.9-36.1); Prothrombin Time 15.2 sec (12.0-14.7)
[2024-09-24] MEDS ORDERED: cefTRIAXone (ROCEPHIN) 1 GM VIAL ONE (06:02)
[2024-09-24] MEDS: cefTRIAXone\\ROCEPHIN 1 GM in Sodium Chloride 0.9% 100 ML IVPB SCH (06:31)
[2024-09-24 08:45] LABS: HBSAB Concentration 54.22 mIU/mL; Hep B Core Total Ab NONREACTIVE (NonReactive); Hep B Core Total Index 0.09 S/CO (0-0.79); Hep B Surf AB REACTIVE (NonReactive); Hep B Surf Ag NONREACTIVE S/CO (NonReactive); Hep C IgG Ab NONREACTIVE S/CO (NonReactive); Hep C Index 0.11 S/CO (0-0.79)
[2024-09-24] MEDS ORDERED: Bisacodyl 5 MG TAB PO PRN (09:12)
[2024-09-24] MEDS ORDERED: Acetaminophen/Codeine 30-300mg Tablet ONE (09:34)
[2024-09-24] MEDS ORDERED: Heparin 10,000 UNITS/ 10 ML VIAL ONE (11:05)
[2024-09-24] MEDS: Morphine 2 MG/ML VIAL SLOW IVP PRN (13:46)
[2024-09-24] MEDS ORDERED: hydrALAZINE 20 MG/ML VIAL SLOW IVP PRN (18:23)
[2024-09-24] MEDS: diphenhydrAMINE 25 MG CAP PO PRN (19:00)
[2024-09-24] MEDS: Acetaminophen/Codeine 30-300mg Tablet PO PRN (19:00)
[2024-09-24] MEDS: Sacubitril 24MG/Valsartan 26 MG TAB PO SCH (20:36)
[2024-09-24] MEDS: Doxycycline 100 MG CAP PO SCH (20:36)
[2024-09-24] MEDS: Carvedilol 25 MG TAB PO SCH (20:36)
[2024-09-24] MEDS: hydrALAZINE 25 MG TAB PO SCH (20:36)
[2024-09-24] MEDS: Apixaban 2.5 MG TAB PO SCH (20:37)
[2024-09-24] MEDS: Atorvastatin Calcium 40 MG TAB PO SCH (20:37)
[2024-09-24] MEDS: Insulin Glargine 30 UNITS/0.3 ML VIAL SC SCH (20:42)
[2024-09-25 04:36] LABS: ALT (SGPT) 7 U/L (8-55); AST (SGOT) 15 U/L (5-34); Albumin 3.3 g/dL (3.5-5.0); Alkaline Phosphatase 64 U/L (40-110); Anion Gap 18 mmol/L (10-20); BUN (Urea Nitrogen) 28 mg/dL (9.8-20.1); Bilirubin, Total 0.4 mg/dL (0.2-1.2); Calc. Creatinine Clearance 0 mL/min (70-130); Calcium 9.6 mg/dL (7.8-10.44); Carbon Dioxide 27 mmol/L (22-29); Chloride 99 mmol/L (98-107); Estimated GFR 7; Globulin 4.2 g/dL (2.4-3.5); Glucose 95 mg/dL (70-105); Potassium 3.5 mmol/L (3.5-5.1); Protein, Total 7.5 g/dL (6.0-8.3); Sodium 140 mmol/L (136-145)
[2024-09-25 04:49] LABS: #Basophils 0.05 10x3/uL (0.0-0.2); %Eosinophils 8.6 % (0.0-10.0); %Lymphocytes 26.2 % (21.0-51.0); %Monocytes 13.9 % (0.0-10.0); %Neutrophils 49.9 % (42.0-75.0); Hematocrit 29.5 % (36.0-47.0); Hemoglobin 8.8 g/dL (12.0-16.0); Mean Corpuscular HGB CONC 29.8 g/dL (32.0-36.0); Mean Corpuscular Hemoglobin 23.2 pg (27.0-31.0); Mean Corpuscular Volume 77.8 fL (78.0-98.0); Mean Platelet Volume 10.2 fL (7.4-10.4); Platelet Count 259 10x3/uL (130-400); RBC Distribution Width 22.8 % (11.5-14.5); Red Blood Cell (RBC) Count 3.79 mill/uL (4.20-5.40)
[2024-09-25 06:54] VITALS: BMI 31.6
[2024-09-25] MEDS: Gabapentin 300 MG CAP PO SCH (08:09)
[2024-09-25] MEDS: dilTIAZem CD 300 MG CAP PO SCH (08:09)
[2024-09-25] MEDS ORDERED: Heparin 10,000 UNITS/ 10 ML VIAL ONE (11:07)
[2024-09-25] MEDS: HYDROcodone/Acetaminophen 7.5/325 mg Tablet PO PRN (11:53)
[2024-09-25 13:07] LABS: Legionella Urinary Ag Negative (Negative); Strep pneumo Urine Ag NEGATIVE (NEGATIVE)
[2024-09-25] MEDS: EPOETIN ALFA-EPBX (ESRD) 10,000 UNITS/ML VIAL SC SCH (14:11)
[2024-09-26 04:32] LABS: #Basophils 0.05 10x3/uL (0.0-0.2); %Lymphocytes 28.5 % (21.0-51.0); %Monocytes 17.1 % (0.0-10.0); Hematocrit 32.2 % (36.0-47.0); Hemoglobin 9.5 g/dL (12.0-16.0); Mean Corpuscular HGB CONC 29.5 g/dL (32.0-36.0); Mean Corpuscular Hemoglobin 23.1 pg (27.0-31.0); Mean Corpuscular Volume 78.2 fL (78.0-98.0); Mean Platelet Volume 9.1 fL (7.4-10.4); Platelet Count 224 10x3/uL (130-400); Red Blood Cell (RBC) Count 4.12 mill/uL (4.20-5.40)
[2024-09-26 04:52] LABS: ALT (SGPT) 8 U/L (8-55); AST (SGOT) 15 U/L (5-34); Albumin 3.5 g/dL (3.5-5.0); Alkaline Phosphatase 66 U/L (40-110); Anion Gap 18 mmol/L (10-20); BUN (Urea Nitrogen) 27 mg/dL (9.8-20.1); Bilirubin, Total 0.3 mg/dL (0.2-1.2); Calc. Creatinine Clearance 17 mL/min (70-130); Calcium 10.5 mg/dL (7.8-10.44); Carbon Dioxide 24 mmol/L (22-29); Chloride 102 mmol/L (98-107); Estimated GFR 8; Globulin 4.3 g/dL (2.4-3.5); Glucose 119 mg/dL (70-105); Potassium 3.5 mmol/L (3.5-5.1); Protein, Total 7.8 g/dL (6.0-8.3); Sodium 140 mmol/L (136-145)
[2024-09-26] MEDS ORDERED: Mag-Al Plus 1200/1200/120 MG (30 mL) UDCUP PO PRN (18:21)
[2024-09-26] MEDS: Calcium Carbonate 500 MG ChewTAB PO PRN (18:41)
[2024-09-27 04:15] LABS: #Basophils 0.06 10x3/uL (0.0-0.2); %Eosinophils 8.9 % (0.0-10.0); %Lymphocytes 30.5 % (21.0-51.0); %Monocytes 16.2 % (0.0-10.0); %Neutrophils 43.2 % (42.0-75.0); Hematocrit 33.6 % (36.0-47.0); Mean Corpuscular HGB CONC 29.8 g/dL (32.0-36.0); Mean Corpuscular Volume 77.4 fL (78.0-98.0); Mean Platelet Volume 8.9 fL (7.4-10.4); Platelet Count 215 10x3/uL (130-400); RBC Distribution Width 22.5 % (11.5-14.5); Red Blood Cell (RBC) Count 4.34 mill/uL (4.20-5.40)
[2024-09-27 04:21] LABS: Anion Gap 15 mmol/L (10-20); BUN (Urea Nitrogen) 25 mg/dL (9.8-20.1); Calc. Creatinine Clearance 18 mL/min (70-130); Calcium 10.2 mg/dL (7.8-10.44); Carbon Dioxide 27 mmol/L (22-29); Chloride 101 mmol/L (98-107); Estimated GFR 9; Glucose 105 mg/dL (70-105); Potassium 3.4 mmol/L (3.5-5.1); Sodium 140 mmol/L (136-145)
[2024-09-27] MEDS: Potassium Chloride 20 MEQ TAB PO SCH (08:38)
[2024-09-27 14:39] VITALS: TEMP 98
[2024-09-27 16:37] VITALS: BP 148/77
== END 2024-09-27 16:49 | disposition home or self-care (01) | DRG 193 ==
LOC: ERS 17:56 → ERHOLD 09-24 00:33 → PCU 09-24 10:24 → OBSVTOIN 09-25 09:29
PROVIDERS: ADMIT Student in an Organized Health Care Education/Training Program; ATTEND Family Medicine
DX: J18.9 Pneumonia, unspecified organism (principal); I50.31 Acute diastolic (congestive) heart failure; N18.6 End stage renal disease; C50.912 Malignant neoplasm of unspecified site of left female breast; I11.0 Hypertensive heart disease with heart failure; E78.5 Hyperlipidemia, unspecified; R94.31 Abnormal electrocardiogram [ECG] [EKG]; I48.91 Unspecified atrial fibrillation; E11.22 Type 2 diabetes mellitus with diabetic chronic kidney disease; E87.70 Fluid overload, unspecified; Z88.5 Allergy status to narcotic agent; Z88.8 Allergy status to other drugs, medicaments and biological substances; Z99.2 Dependence on renal dialysis
CPT/HCPCS: 36415; 36416; 71045; 74018; 74176; 76700; 80048; 80053; 82728; 83540; 83550; 83605; 83880; 84484; 85025; 85610; 85730; 86704; 86706; 86803; 87040; 87340; 87428; 87449; 87899; 90935; 93005; 94760; 96374; 96375; 96376; G0257; G0378; J0360; J0456; J0696; J1644; J1815; J1940; J2272; J2405; J7050; J7999; Q5105

== ENCOUNTER 2024-10-15 09:50 | Outpatient (CLI) | payer MEDICARE | END 2024-10-15 09:51 | disposition home or self-care (01) | LOC: BICRAD 09:50 | PROVIDERS: ATTEND Family Medicine | DX: Z09 Encounter for follow-up examination after completed treatment for conditions other than malignant neoplasm (principal); J18.9 Pneumonia, unspecified organism | CPT/HCPCS: 71046 ==

== ENCOUNTER 2024-10-20 22:09 | Inpatient (IN) | payer MEDICARE, OTHER ==
[2024-10-20] MEDS ORDERED: Nitroglycerin 2% Ointment 1 INCH/1 GM Packet ONE (22:46)
[2024-10-20] MEDS ORDERED: hydrALAZINE 20 MG/ML VIAL ONE (22:46)
[2024-10-20] MEDS ORDERED: niCARdipine 25 MG/10 ML SDV ONE (23:12)
[2024-10-20] MEDS ORDERED: Acetaminophen 325 MG TAB PO PRN ×2 (23:15→23:27)
[2024-10-20] MEDS ORDERED: Ondansetron ODT 4 MG TAB SL PRN (23:15)
[2024-10-20] MEDS ORDERED: Ondansetron PF 4 MG/2 ML Vial IVP PRN ×2 (23:15→23:27)
[2024-10-20] MEDS ORDERED: Acetaminophen 650 MG Suppository PR PRN (23:27)
[2024-10-20] MEDS ORDERED: Ondansetron ODT 4 MG TAB PO PRN (23:27)
[2024-10-20] MEDS ORDERED: Calcium Carbonate 500 MG ChewTAB PO PRN (23:27)
[2024-10-20] MEDS ORDERED: niCARdipine 25 MG in Sodium Chloride 0.9% 250 ML 250 ML IVPB SCH (23:30)
[2024-10-20] MEDS ORDERED: Ipratropium/Albuterol 3 ML NEB NEB PRN (23:40)
[2024-10-20] MEDS ORDERED: Glucagon 1 MG/ML KIT IM PRN (23:42)
[2024-10-20] MEDS ORDERED: Dextrose 5% in Water 1,000 ML IV PRN (23:42)
[2024-10-20] MEDS ORDERED: Insulin Lispro 100 UNIT/ML 10 ML VIAL SC PRN (23:42)
[2024-10-20] MEDS ORDERED: Dextrose 50% Abboject 50 ML SYRINGE SLOW IVP PRN (23:42)
[2024-10-20] MEDS ORDERED: Melatonin 3 MG TAB PO PRN (23:45)
[2024-10-20] MEDS ORDERED: Azithromycin 500 MG in Sodium Chloride 0.9% 250 ML 250 ML IVPB SCH (23:59)
[2024-10-21 00:49] VITALS: BMI 36.6
[2024-10-21] MEDS: Morphine 2 MG/ML VIAL SLOW IVP SCH (03:25)
[2024-10-21] MEDS: cefTRIAXone\\ROCEPHIN 2 GM in Sodium Chloride 0.9% 100 ML IVPB SCH (03:25)
[2024-10-21 06:21] LABS: #Basophils 0.03 10x3/uL (0.0-0.2); %Basophils 0.4 % (0.0-1.0); %Lymphocytes 11.3 % (21.0-51.0); %Monocytes 6.9 % (0.0-10.0); %Neutrophils 80.3 % (42.0-75.0); Hematocrit 31.6 % (36.0-47.0); Hemoglobin 9.7 g/dL (12.0-16.0); Mean Corpuscular HGB CONC 30.7 g/dL (32.0-36.0); Mean Corpuscular Hemoglobin 23.2 pg (27.0-31.0); Mean Corpuscular Volume 75.4 fL (78.0-98.0); Mean Platelet Volume 10.5 fL (7.4-10.4); Platelet Count 306 10x3/uL (130-400); RBC Distribution Width 23.4 % (11.5-14.5); Red Blood Cell (RBC) Count 4.19 mill/uL (4.20-5.40)
[2024-10-21 06:45] LABS: Anion Gap 15 mmol/L (10-20); BUN (Urea Nitrogen) 20 mg/dL (9.8-20.1); Calc. Creatinine Clearance 26 mL/min (70-130); Carbon Dioxide 29 mmol/L (22-29); Chloride 100 mmol/L (98-107); Estimated GFR 12; Glucose 110 mg/dL (70-105); Potassium 3.3 mmol/L (3.5-5.1); Sodium 141 mmol/L (136-145)
[2024-10-21] MEDS: HYDROcodone/Acetaminophen 7.5/325 mg Tablet PO PRN (07:59)
[2024-10-21] MEDS: Gabapentin 300 MG CAP PO SCH (08:16)
[2024-10-21] MEDS: Azithromycin 250 MG TAB PO SCH (08:16)
[2024-10-21] MEDS: Famotidine 20 MG TAB PO SCH (08:16)
[2024-10-21] MEDS: Sacubitril 24MG/Valsartan 26 MG TAB PO SCH (08:17)
[2024-10-21] MEDS: Apixaban 2.5 MG TAB PO SCH (08:17)
[2024-10-21] MEDS: hydrALAZINE 25 MG TAB PO SCH (08:22)
[2024-10-21] MEDS: EPOETIN ALFA-EPBX (ESRD) 10,000 UNITS/ML VIAL SC SCH (09:06)
[2024-10-21] MEDS: Insulin Glargine 30 UNITS/0.3 ML VIAL SC SCH (09:06)
[2024-10-21] MEDS: Famotidine/PF 20 mg/2ml Vial SLOW IVP SCH (09:06)
[2024-10-21] MEDS: Carvedilol 25 MG TAB PO SCH (09:11)
[2024-10-21] MEDS: dilTIAZem CD 300 MG CAP PO SCH (09:11)
[2024-10-21] MEDS ORDERED: Heparin 10,000 UNITS/ 10 ML VIAL ONE (10:31)
[2024-10-21] MEDS: Docusate 100 MG CAP PO SCH (16:22)
[2024-10-21] MEDS: Insulin Lispro 100 UNIT/ML 10 ML VIAL SC PRN (16:26)
[2024-10-21] MEDS: Apixaban 5 MG TAB PO SCH (20:15)
[2024-10-21] MEDS: Atorvastatin Calcium 40 MG TAB PO SCH (20:15)
[2024-10-21] MEDS: Senokot S 8.6-50 MG TAB PO SCH (20:15)
[2024-10-21] MEDS: QUEtiapine 25 MG TAB PO SCH (20:16)
[2024-10-21 20:53] VITALS: TEMP 98.1
[2024-10-22] MEDS ORDERED: Labetalol HCl 100 MG/20 ML VIAL SLOW IVP PRN (05:05)
[2024-10-22] MEDS ORDERED: hydrALAZINE 20 MG/ML VIAL SLOW IVP PRN (05:05)
[2024-10-22] MEDS: Azithromycin 250 MG TAB PO SCH (08:13)
[2024-10-22 08:14] VITALS: BP 146/62
[2024-10-22] MEDS: Sevelamer Carbonate 800 MG TAB PO SCH (08:34)
[2024-10-22] MEDS: Polyethylene Glycol 3350 17 GM Packet PO SCH (08:35)
[2024-10-22] MEDS ORDERED: Heparin 10,000 UNITS/ 10 ML VIAL ONE (10:38)
== END 2024-10-22 17:53 | disposition home or self-care (01) | DRG 291 ==
LOC: ERS 22:09 → CCU 10-21 00:23 → SURG B 10-22 13:45
PROVIDERS: ADMIT Student in an Organized Health Care Education/Training Program; ATTEND Internal Medicine
DX: I13.2 Hypertensive heart and chronic kidney disease with heart failure and with stage 5 chronic kidney disease, or end stage renal disease (principal); I50.33 Acute on chronic diastolic (congestive) heart failure; J96.00 Acute respiratory failure, unspecified whether with hypoxia or hypercapnia; N18.6 End stage renal disease; I16.1 Hypertensive emergency; E87.70 Fluid overload, unspecified; E78.5 Hyperlipidemia, unspecified; E11.22 Type 2 diabetes mellitus with diabetic chronic kidney disease; I48.91 Unspecified atrial fibrillation; D63.1 Anemia in chronic kidney disease; I50.32 Chronic diastolic (congestive) heart failure; Z99.2 Dependence on renal dialysis; Z79.899 Other long term (current) drug therapy
CPT/HCPCS: 36416; 71045; 80048; 83880; 84145; 84484; 85025; 87428; 90935; 90945; 93005; 93798; 94660; 96365; 96374; 96375; G0257; J0360; J0696; J1644; J1815; J2272

== ENCOUNTER 2024-11-06 09:10 | Outpatient (CLI) | payer MEDICARE ==
[2024-11-06] MEDS ORDERED: Magnevist 469MG/ML 20 ML VIAL ONE (09:22)
== END 2024-11-06 09:11 | disposition home or self-care (01) ==
LOC: MRI 09:10
PROVIDERS: ATTEND Urology
DX: N28.89 Other specified disorders of kidney and ureter (principal); N28.1 Cyst of kidney, acquired
CPT/HCPCS: 74183

== ENCOUNTER 2025-08-12 09:27 | Outpatient (CLI) | payer MEDICARE | END 2025-08-12 09:28 | disposition home or self-care (01) | LOC: BICRAD 09:27 | PROVIDERS: ATTEND Family Medicine | DX: M25.552 Pain in left hip (principal); M54.50 Low back pain, unspecified; M47.816 Spondylosis without myelopathy or radiculopathy, lumbar region; S72.002A Fracture of unspecified part of neck of left femur, initial encounter for closed fracture; M16.12 Unilateral primary osteoarthritis, left hip | CPT/HCPCS: 72100 ==